=== PATIENT | female | born 1975 | race Caucasian/White ===

== ENCOUNTER 2018-08-21 12:10 | Emergency (ER) | payer MEDICAID ==
[2018-08-21] MEDS ORDERED: Potassium Chloride 20 MEQ Tab.ER PO ONE ×2 (13:20→15:02)
[2018-08-21] MEDS ORDERED: Potassium Chloride 20 MEQ in Premix Bag 1 BAG IV ONE (13:21)
--- NOTE | 2018-08-21 13:27 | EDM.PDOC ---
ED HPI GENERAL MEDICAL PROBLEM - General Chief Complaint: Abdominal Pain Stated Complaint: LOW POTASSIUM Time Seen by Provider: 08/21/18 13:22 Source of Information: Reports: Patient History Limitations: Reports: No Limitations - History of Present Illness INITIAL COMMENTS - FREE TEXT/NARRATIVE: pt has a known diagnosis of cirrhosis of the liver and she quit drinking 1 week ago. She was at the ER in [place] and 2400cc of fluid was taken off of the abdoman. She is more comfortable than when she was seen on Saturday. She has been out of her K since Saturday. She had her K checked at the clinic and she was found to have a 2.8 potassium. Onset: Gradual Duration: Day(s):, Other (pt has been out of k since saturday and she normally takes 40 meq tid. ) Location: Reports: Abdomen, Other ( She had a parencentesis on Saturday and she is very uncomfortable around the site. ) Associated Symptoms: Reports: No Other Symptoms Right Abdominal Pain Score (Numeric/FACES): 7 - Related Data Allergies Allergy/AdvReac Type Severity Reaction Status Date / Time No Known Allergies Allergy Verified 08/21/18 12:58 Home Meds: Home Meds Omeprazole 20 mg PO DAILY 12/18/17 [History] Potassium Chloride 40 meq PO TID 08/21/18 [History] Spironolactone [Aldactone] 12.5 mg PO DAILY 08/21/18 [History] Sulfamethoxazole/Trimethoprim [Sulfamethoxazole-Tmp Ds Tablet] 1 tab PO BID [History] Past Medical History Cardiovascular History: Reports: Hypertension Gastrointestinal History: Reports: Cirrhosis, GERD 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, 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: Musculoskeletal History: Reports: Fracture Psychiatric History: Reports: Bipolar Hematologic History: Reports: Blood Transfusion(s) Other Dermatologic History: tattoos - Infectious Disease History Infectious Disease History: Reports: None - Past Surgical History Female Surgical History: Reports: Tubal Ligation Social & Family History - Family History Cardiac: Reports: Bypass, Hypertension, [place], Pacemaker Psychiatric: Reports: Bipolar, Schizophrenia Endocrine/Metabolic: Reports: Diabetes, type II Oncologic: Reports: Colon - Tobacco Use Smoking Status *Q: Current Every Day Smoker Years of Tobacco use: 30 Packs/Tins Daily: 0.5 - Caffeine Use Caffeine Use: Reports: None - Alcohol Use Date of Last Drink: 08/16/18 - Recreational Drug Use Recreational Drug Use: No ED ROS GENERAL - Review of Systems Review Of Systems: See Below Constitutional: Reports: Weakness, Fatigue, Other ( Pt quit drinking 1 week ago. ) HEENT: Reports: No Symptoms Respiratory: Reports: No Symptoms Cardiovascular: Reports: No Symptoms Endocrine: Reports: No Symptoms GI/Abdominal: Reports: Abdominal Pain, Other ( Pt is having rt sided abdomanal pain. ) : Reports: No Symptoms Musculoskeletal: Reports: No Symptoms Skin: Reports: No Symptoms Neurological: Reports: No Symptoms ED EXAM, GI/ABD - Physical Exam Exam: See Below Text/Narrative:: pt arrived with a history of the k being 2.8. When it was rechecked today it was 2.5. She is also having rt lower abdomanal pain where fluid was drawn off of her abdoman on Saturday in [place]. She statwes she quit drinking a week ago. Exam Limited By: No Limitations General Appearance: Alert, Mild Distress Ears: Normal TMs Nose: Normal Inspection Throat/Mouth: Normal Inspection Head: Atraumatic Neck: Normal Inspection Respiratory/Chest: No Respiratory Distress Cardiovascular: Regular Rate, Rhythm GI/Abdominal Exam: Other (pt is tender over the site where the fluid was draWN OFF ON saturday. ) (Female) Exam: Deferred Rectal (Female) Exam: Deferred Back Exam: Normal Inspection Extremities: Normal Inspection Neurological: Alert, Oriented, Normal Cognition Psychiatric: Normal Affect Course - Vital Signs Last Recorded V/S: Last Vital Signs Temp 36.1 C 08/21/18 13:02 Pulse 91 08/21/18 15:37 Resp 17 08/21/18 15:37 BP 150/99 H 08/21/18 15:37 Pulse Ox 98 08/21/18 14:54 - Orders/Labs/Meds Orders: Active Orders 24 hr Category Date Time Status UA W/MICROSCOPIC [URIN] Urgent Lab 08/21/18 12:54 Ordered Labs: Laboratory Tests 08/21/18 08/21/18 08/21/18 Range/Units 13:03 13:03 15:25 WBC 4.6 (4.5-11.0) K/uL RBC 3.06 L (3.30-5.50) M/uL Hgb 10.7 L (12.0-15.0) g/dL Hct 33.7 L (36.0-48.0) % MCV 110 H (80-98) fL MCH 35 H (27-31) pg MCHC 32 (32-36) % Plt Count 155 (150-400) K/uL Neut % (Auto) 61 (36-66) % Lymph % (Auto) 26 (24-44) % [place] % (Auto) 13 H (2-6) % Eos % (Auto) 1 L (2-4) % Baso % (Auto) 0 (0-1) % Sodium 140 (140-148) mmol/L Potassium 2.5 L* 2.9 L* (3.6-5.2) mmol/L Chloride 102 (100-108) mmol/L Carbon Dioxide 31 (21-32) mmol/L Anion Gap 9.5 (5.0-14.0) mmol/L BUN 8 (7-18) mg/dL Creatinine 0.7 (0.6-1.0) mg/dL Est Cr Clr Drug Dosing 95.17 mL/min Estimated GFR (MDRD) > 60 (>60) Glucose 87 (74-106) mg/dL Calcium 8.0 L (8.5-10.1) mg/dL Total Bilirubin 1.1 H (0.2-1.0) mg/dL AST 132 H (15-37) U/L ALT 61 (12-78) U/L Alkaline Phosphatase 202 H (46-116) U/L Total Protein 6.1 L (6.4-8.2) g/dL Albumin 2.1 L (3.4-5.0) g/dL Globulin 4.0 H (2.3-3.5) g/dL Albumin/Globulin Ratio 0.5 L (1.2-2.2) Meds: Medications Discontinued Medications Generic Name Dose Route Start Last Admin Trade Name Freq PRN Reason Stop Dose Admin Potassium Chloride 20 meq/ 112 mls @ 56 mls/hr 08/21/18 13:45 08/21/18 13:55 Lidocaine HCl 2 ml/ Sodium IV 08/21/18 15:44 56 mls/hr Chloride ONETIME ONE Administration Potassium Chloride 40 meq 08/21/18 13:20 08/21/18 13:33 Klor-Con M20 PO 08/21/18 13:21 40 meq ONETIME ONE Administration Potassium Chloride 20 meq 08/21/18 15:02 08/21/18 15:29 Klor-Con M20 PO 08/21/18 15:03 20 meq ONETIME ONE Administration - Re-Assessments/Exams Free Text/Narrative Re-Assessment/Exam: 08/21/18 17:25 A CAT SCAN OF THE ABDOMAN SHOWED SOME BOWEL THICKENING LIKE SHE COULD HAVE A COLITIS. sHE DOES HAVE CHRONIC DIARRHEA. sHE WAS GIVEN 20 MEQ IV AND A TOTAL OF 60MEQ ORALLY. hER K WAS UP TO 2.9. sHE WILL TAKE ANOTHER 40 MEQ TO NIGHT. sHE IS TO BE SEEN ON TH AND HER K WILL BE RECHECKED. Departure - Departure Time of Disposition: 17:16 Disposition: Home, Self-Care 01 Condition: Fair Clinical Impression: Cirrhosis of liver, Hypokalemia - Discharge Information Referrals: Hipolito Dawkins MD [Primary Care Provider] - Forms: ED Department Discharge Care Plan Goals: resume potassium 40 meq qid, recheck k in the next 3-[address] Dawkins. warm packs to the rt lower abdoman. - My Orders Last 24 Hours: My Active Orders 08/21/18 12:54 UA W/MICROSCOPIC [URIN] Urgent - Assessment/Plan Last 24 Hours: My Active Orders 08/21/18 12:54 UA W/MICROSCOPIC [URIN] Urgent
[2018-08-21] MEDS ORDERED: Potassium Chloride 20 MEQ, Lidocaine 1% 2 ML in Sodium Chloride 0.9% 100 ML IV ONE (13:45)
--- NOTE | 2018-08-21 16:22 | CRLCT ---
INDICATION: Right lower quadrant pain TECHNIQUE: CT abdomen and pelvis without contrast. COMPARISON: 12/20/2017 FINDINGS: Lower chest: Small fluid adjacent to the distal esophagus. Mildly decreased attenuation in the cardiac chambers suggestive of anemia. Liver: Hepatomegaly. Hepatic steatosis. Ill-defined areas of increased attenuation in the left hepatic lobe could be related to areas of sparing. Spleen: Unremarkable. Pancreas: Unremarkable. Gallbladder and bile ducts: Unremarkable. Adrenal glands: The apparent subtle left adrenal nodule seen on the prior study is not well delineated. Kidneys: No hydronephrosis. A miniscule nonobstructive right renal calcification. No discrete ureteral calcifications. GI tract: Apparent prominence of the gastric antral wall which could be related to underdistention. No mechanical bowel obstruction. Apparent wall thickening in several left abdominal small bowel segments, although evaluation is limited without contrast. Thickening of the terminal ileum wall. No evidence of appendicitis. Colonic wall thickening, more pronounced in the right colon and sigmoid colon. Fat attenuation within the majority of the colonic wall and terminal ileum wall which can be seen as sequelae of chronic inflammation. Vascular structures: Mild atherosclerotic changes. Lymph nodes: Unremarkable. Miscellaneous: Moderate abdominal and pelvic ascites. No free air. Mild subcutaneous edema. Pelvic Organs: Unremarkable. Bones: Focal sclerosis in the anterior right 5th rib, nonspecific, possibly related to a chronic fracture. Reactive sclerosis adjacent to the right sacroiliac joint. IMPRESSION: Moderate ascites. Colonic wall thickening compatible with colitis, although somewhat nonspecific in the setting of ascites. Wall thickening of the terminal ileum and apparent areas of wall thickening in left abdominal small bowel segments suggestive of a nonspecific enteritis. Correlate clinically, including for inflammatory bowel disease. Hepatomegaly and hepatic steatosis. No obstructive uropathy. A miniscule nonobstructive right renal calcification. Dictated by Dipak Darby MD @ 08/21/2018 4:19:39 PM Please note that all CT scans at this facility use dose modulation, iterative reconstruction, and/or weight-based dosing when appropriate to reduce radiation dose to as low as reasonably achievable. Dictated by: Dipak Darby MD @ 08/21/2018 16:19:46 (Electronically Signed)
== END 2018-08-21 17:32 | disposition home or self-care (01) ==
LOC: JP.ED 12:10
DX: K74.60 Unspecified cirrhosis of liver (principal); E87.6 Hypokalemia; I10 Essential (primary) hypertension; K21.9 Gastro-esophageal reflux disease without esophagitis; F31.9 Bipolar disorder, unspecified; F17.210 Nicotine dependence, cigarettes, uncomplicated; Z79.899 Other long term (current) drug therapy
CPT/HCPCS: 36415; 74176; 80053; 84132; 85025; 96365; 96366; 99284-25; A9270-GY; J2001; J3480; J7030

== ENCOUNTER 2018-10-28 11:36 | Emergency (ER) | payer MEDICAID ==
[2018-10-28] MEDS ORDERED: Sodium Chloride 0.9% 10 ML Syringe FLUSH PRN (12:20)
[2018-10-28] MEDS ORDERED: Ondansetron 4 MG/2 ML SDV IVPUSH ONE (12:21)
[2018-10-28] MEDS ORDERED: fentaNYL 100 MCG/2 ML SDV IVPUSH ONE ×2 (12:21→16:28)
--- NOTE | 2018-10-28 12:24 | EDM.PDOC ---
ED HPI GENERAL MEDICAL PROBLEM - General Chief Complaint: Abdominal Pain Stated Complaint: LEG CRAMPING, HEART IRREGULAR Time Seen by Provider: 10/28/18 12:16 Source of Information: Reports: Patient, Family, Old Records, RN Notes Reviewed History Limitations: Reports: No Limitations - History of Present Illness INITIAL COMMENTS - FREE TEXT/NARRATIVE: 43-year-old female presents emergency department today with complaint of abdominal pain. She has had nausea vomiting also blood in her urine and dysuria she's been sick for the last couple days. Does have a history of alcoholic cirrhosis but has been off alcohol for 1 month unfortunately she drank 3 days ago Lower Abdomen Pain Score (Numeric/FACES): 4 - Related Data Allergies Allergy/AdvReac Type Severity Reaction Status Date / Time No Known Allergies Allergy Verified 10/28/18 11:55 Home Meds: Home Meds Omeprazole 20 mg PO DAILY 12/18/17 [History] Potassium Chloride 40 meq PO TID 08/21/18 [History] Spironolactone [Aldactone] 12.5 mg PO DAILY 08/21/18 [History] Folic Acid 1 tab PO DAILY 10/28/18 [History] Past Medical History HEENT History: Reports: Impaired Vision Cardiovascular History: Reports: Hypertension Gastrointestinal History: Reports: Cirrhosis, GERD 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, Recurrent 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: Musculoskeletal History: Reports: Fracture Psychiatric History: Reports: Bipolar Hematologic History: Reports: Blood Transfusion(s) Other Dermatologic History: tattoos - Infectious Disease History Infectious Disease History: Reports: None - Past Surgical History Female Surgical History: Reports: Tubal Ligation Social & Family History - Family History Cardiac: Reports: Bypass, Hypertension, [place], Pacemaker Psychiatric: Reports: Bipolar, Schizophrenia Endocrine/Metabolic: Reports: Diabetes, type II Oncologic: Reports: Colon - Tobacco Use Smoking Status *Q: Current Every Day Smoker Years of Tobacco use: 30 Packs/Tins Daily: 0.5 Used Tobacco, but Quit: No Second Hand Smoke Exposure: Yes - Caffeine Use Caffeine Use: Reports: None - Alcohol Use Days Per Week of Alcohol Use: 0 - Recreational Drug Use Recreational Drug Use: No ED ROS GENERAL - Review of Systems Review Of Systems: See Below Constitutional: Reports: Fever, Chills HEENT: Reports: No Symptoms Respiratory: Reports: No Symptoms Cardiovascular: Reports: No Symptoms GI/Abdominal: Reports: Abdominal Pain, Nausea, Vomiting : Reports: Hematuria Musculoskeletal: Reports: No Symptoms Skin: Reports: No Symptoms ED EXAM, GI/ABD - Physical Exam Exam: See Below Exam Limited By: No Limitations General Appearance: Alert, WD/WN, No Apparent Distress Respiratory/Chest: No Respiratory Distress, Lungs Clear, Normal Breath Sounds, No Accessory Muscle Use, Chest Non-Tender Cardiovascular: Regular Rate, Rhythm, No Murmur GI/Abdominal Exam: Normal Bowel Sounds, Soft, No Distention, Tender (Suprapubic tenderness). No: Guarding, Rigid, Rebound Course - Vital Signs Last Recorded V/S: Last Vital Signs Temp 97.6 F 10/28/18 12:06 Pulse 74 10/28/18 13:21 Resp 16 10/28/18 13:21 BP 149/95 H 10/28/18 13:21 Pulse Ox 93 L 10/28/18 13:21 - Orders/Labs/Meds Orders: Active Orders 24 hr Category Date Time Status Peripheral IV Care [RC] . DIRECTED Care 10/28/18 12:20 Active CULTURE URINE [RM] Urgent Lab 10/28/18 15:47 Ordered Iopamidol [Isovue-300 (61%)] Med 10/28/18 13:45 Active 88 ml IV . DIRECTED Lactated Ringers [Ringers, Lactated] 1,000 ml Med 10/28/18 12:30 Active IV ASDIRECTED Potassium Chloride 20 meq Med 10/28/18 15:30 Active Lidocaine 1% [Xylocaine 1%] 2 ml Sodium Chloride 0.9% [Normal Saline] 100 ml IV ONETIME Sodium Chloride 0.9% [Normal Saline] 1,000 ml Med 10/28/18 15:15 Active IV ASDIRECTED Sodium Chloride 0.9% [Normal Saline] 70 ml Med 10/28/18 13:45 Active IV ASDIRECTED Sodium Chloride 0.9% [Saline Flush] Med 10/28/18 12:20 Active 10 ml FLUSH ASDIRECTED PRN Peripheral IV Insertion Adult [OM.PC] Urgent Oth 10/28/18 12:20 Ordered Medication Orders Lactated Ringer's (Ringers, Lactated) 1,000 mls @ 999 mls/hr IV ASDIRECTED KAREN Last Admin: 10/28/18 12:46 Dose: 999 mls/hr Sodium Chloride (Normal Saline) 70 mls @ 0 mls/hr IV ASDIRECTED KAREN Stop: 10/28/18 23:00 Last Admin: 10/28/18 14:00 Dose: 3.5 mls/hr Sodium Chloride (Normal Saline) 1,000 mls @ 500 mls/hr IV ASDIRECTED KAREN Last Admin: 10/28/18 15:12 Dose: 500 mls/hr Potassium Chloride 20 meq/Lidocaine HCl 2 ml/ Sodium Chloride 112 mls @ 56 mls/ hr IV ONETIME ONE Stop: 10/28/18 17:29 Iopamidol (Isovue-300 (61%)) 88 ml IV . DIRECTED KAREN Stop: 10/28/18 23:00 Last Admin: 10/28/18 13:53 Dose: 88 ml Sodium Chloride (Saline Flush) 10 ml FLUSH ASDIRECTED PRN PRN Reason: Keep Vein Open Labs: Laboratory Tests 10/28/18 10/28/18 10/28/18 Range/Units 12:35 12:35 12:37 WBC 6.4 (4.5-11.0) K/uL RBC 4.19 (3.30-5.50) M/uL Hgb 14.1 D (12.0-15.0) g/dL Hct 42.5 (36.0-48.0) % MCV 101 H (80-98) fL MCH 34 H (27-31) pg MCHC 33 (32-36) % Plt Count 186 (150-400) K/uL Neut % (Auto) 71 H (36-66) % Lymph % (Auto) 14 L (24-44) % [place] % (Auto) 15 H (2-6) % Eos % (Auto) 0 L (2-4) % Baso % (Auto) 0 (0-1) % Sodium (140-148) mmol/L Potassium (3.6-5.2) mmol/L Chloride (100-108) mmol/L Carbon Dioxide (21-32) mmol/L Anion Gap (5.0-14.0) mmol/L BUN (7-18) mg/dL Creatinine (0.6-1.0) mg/dL Est Cr Clr Drug Dosing mL/min Estimated GFR (MDRD) (>60) Glucose (74-106) mg/dL Lactic Acid (0.4-2.0) mmol/L Calcium (8.5-10.1) mg/dL Total Bilirubin (0.2-1.0) mg/dL AST (15-37) U/L ALT (12-78) U/L Alkaline Phosphatase (46-116) U/L Total Protein (6.4-8.2) g/dL Albumin (3.4-5.0) g/dL Globulin (2.3-3.5) g/dL Albumin/Globulin Ratio (1.2-2.2) Lipase (73-393) U/L Urine Color [place] Urine Appearance Slightly cloudy Urine pH 5.0 (4.5-8.0) Ur Specific [place] 1.020 (1.008-1.030) Urine Protein 30 H (NEGATIVE) mg/dL Urine Glucose (UA) Normal (NEGATIVE) mg/dL Urine Ketones Negative (NEGATIVE) mg/dL Urine Occult Blood Large (NEGATIVE) Urine Nitrite Negative (NEGATIVE) Urine Bilirubin Large (NEGATIVE) Urine Urobilinogen >=12 H (NORMAL) mg/dL Ur Leukocyte Esterase Large (NEGATIVE) Urine RBC 5-10 H (0-5) Urine WBC 5-10 H (0-5) Ur Epithelial Cells Many Amorphous Sediment Not seen Urine Bacteria Rare Urine Mucus Many Urine Other Urine HCG, Qual Negative Ethyl Alcohol mg/dL 10/28/18 10/28/18 10/28/18 Range/Units 12:37 12:37 12:37 WBC (4.5-11.0) K/uL RBC (3.30-5.50) M/uL Hgb (12.0-15.0) g/dL Hct (36.0-48.0) % MCV (80-98) fL MCH (27-31) pg MCHC (32-36) % Plt Count (150-400) K/uL Neut % (Auto) (36-66) % Lymph % (Auto) (24-44) % [place] % (Auto) (2-6) % Eos % (Auto) (2-4) % Baso % (Auto) (0-1) % Sodium 138 L (140-148) mmol/L Potassium 2.8 L* (3.6-5.2) mmol/L Chloride 92 L (100-108) mmol/L Carbon Dioxide 33 H (21-32) mmol/L Anion Gap 15.8 H (5.0-14.0) mmol/L BUN 24 H D (7-18) mg/dL Creatinine 1.2 H D (0.6-1.0) mg/dL Est Cr Clr Drug Dosing 55.52 mL/min Estimated GFR (MDRD) 50 L (>60) Glucose 140 H (74-106) mg/dL Lactic Acid 5.2 H (0.4-2.0) mmol/L Calcium 9.6 D (8.5-10.1) mg/dL Total Bilirubin 3.6 H D (0.2-1.0) mg/dL AST 194 H (15-37) U/L ALT 87 H (12-78) U/L Alkaline Phosphatase 256 H (46-116) U/L Total Protein 7.6 (6.4-8.2) g/dL Albumin 3.2 L (3.4-5.0) g/dL Globulin 4.4 H (2.3-3.5) g/dL Albumin/Globulin Ratio 0.7 L (1.2-2.2) Lipase 57 L (73-393) U/L Urine Color Urine Appearance Urine pH (4.5-8.0) Ur Specific [place] (1.008-1.030) Urine Protein (NEGATIVE) mg/dL Urine Glucose (UA) (NEGATIVE) mg/dL Urine Ketones (NEGATIVE) mg/dL Urine Occult Blood (NEGATIVE) Urine Nitrite (NEGATIVE) Urine Bilirubin (NEGATIVE) Urine Urobilinogen (NORMAL) mg/dL Ur Leukocyte Esterase (NEGATIVE) Urine RBC (0-5) Urine WBC (0-5) Ur Epithelial Cells Amorphous Sediment Urine Bacteria Urine Mucus Urine Other Urine HCG, Qual Ethyl Alcohol < 3 mg/dL Meds: Medications Generic Name Dose Route Start Last Admin Trade Name Freq PRN Reason Stop Dose Admin Lactated Ringer's 1,000 mls @ 999 mls/hr 10/28/18 12:30 10/28/18 12:46 Ringers, Lactated IV 999 mls/hr ASDIRECTED KAREN Administration Sodium Chloride 70 mls @ 0 mls/hr 10/28/18 13:45 10/28/18 14:00 Normal Saline IV 10/28/18 23:00 3.5 mls/hr ASDIRECTED KAREN Administration KVO Sodium Chloride 1,000 mls @ 500 mls/hr 10/28/18 15:15 10/28/18 15:12 Normal Saline IV 500 mls/hr ASDIRECTED KAREN Administration Potassium Chloride 20 meq/ 112 mls @ 56 mls/hr 10/28/18 15:30 Lidocaine HCl 2 ml/ Sodium IV 10/28/18 17:29 Chloride ONETIME ONE Iopamidol 88 ml 10/28/18 13:45 10/28/18 13:53 Isovue-300 (61%) IV 10/28/18 23:00 88 ml . DIRECTED KAREN Administration Sodium Chloride 10 ml 10/28/18 12:20 Saline Flush FLUSH ASDIRECTED PRN Keep Vein Open Discontinued Medications Generic Name Dose Route Start Last Admin Trade Name Freq PRN Reason Stop Dose Admin Fentanyl 50 mcg 10/28/18 12:21 10/28/18 12:48 Sublimaze IVPUSH 10/28/18 12:22 50 mcg ONETIME ONE Administration Ceftriaxone Sodium 1 gm/ 50 mls @ 100 mls/hr 10/28/18 15:01 10/28/18 15:17 Sodium Chloride IV 10/28/18 15:30 100 mls/hr ONETIME ONE Administration Ondansetron HCl 4 mg 10/28/18 12:21 10/28/18 12:48 Zofran IVPUSH 10/28/18 12:22 4 mg ONETIME ONE Administration Potassium Chloride 40 meq 10/28/18 13:22 10/28/18 13:36 Klor-Con M20 PO 10/28/18 13:23 40 meq ONETIME ONE Administration Sodium Chloride 10 ml 10/28/18 13:37 10/28/18 14:00 Saline Flush FLUSH 10/28/18 13:38 10 ml ONETIME ONE Administration Departure - Departure Time of Disposition: 15:51 Disposition: Home, Self-Care 01 Condition: Fair Clinical Impression: Hypokalemia Urinary tract infection Qualifiers: Urinary tract infection type: acute cystitis Hematuria presence: with hematuria Qualified Code(s): N30.01 - Acute cystitis with hematuria - Discharge Information Instructions: Urine Culture and Sensitivity Testing, Urinary Tract Infection, Adult Referrals: Georgina Mancilla PA [Primary Care Provider] - Forms: ED Department Discharge Additional Instructions: Take full course of antibiotics, please follow-up with your primary care in the next 3-5 days for reevaluation recommend rechecking her potassium at that time - My Orders Last 24 Hours: My Active Orders 10/28/18 12:20 Peripheral IV Care [RC] . DIRECTED Sodium Chloride 0.9% [Saline Flush] 10 ml FLUSH ASDIRECTED PRN Peripheral IV Insertion Adult [OM.PC] Urgent 10/28/18 12:30 Lactated Ringers [Ringers, Lactated] 1,000 ml IV ASDIRECTED 10/28/18 13:45 Iopamidol [Isovue-300 (61%)] 88 ml IV . DIRECTED Sodium Chloride 0.9% [Normal Saline] 70 ml IV ASDIRECTED 10/28/18 15:15 Sodium Chloride 0.9% [Normal Saline] 1,000 ml IV ASDIRECTED 10/28/18 15:30 Potassium Chloride 20 meq Lidocaine 1% [Xylocaine 1%] 2 ml Sodium Chloride 0.9 % [Normal Saline] 100 ml IV ONETIME 10/28/18 15:47 CULTURE URINE [RM] Urgent - Assessment/Plan Last 24 Hours: My Active Orders 10/28/18 12:20 Peripheral IV Care [RC] . DIRECTED Sodium Chloride 0.9% [Saline Flush] 10 ml FLUSH ASDIRECTED PRN Peripheral IV Insertion Adult [OM.PC] Urgent 10/28/18 12:30 Lactated Ringers [Ringers, Lactated] 1,000 ml IV ASDIRECTED 10/28/18 13:45 Iopamidol [Isovue-300 (61%)] 88 ml IV . DIRECTED Sodium Chloride 0.9% [Normal Saline] 70 ml IV ASDIRECTED 10/28/18 15:15 Sodium Chloride 0.9% [Normal Saline] 1,000 ml IV ASDIRECTED 10/28/18 15:30 Potassium Chloride 20 meq Lidocaine 1% [Xylocaine 1%] 2 ml Sodium Chloride 0.9 % [Normal Saline] 100 ml IV ONETIME 10/28/18 15:47 CULTURE URINE [RM] Urgent Plan: Assessment Acuity = acute Site and laterality = urinary tract infection complicated patient known history of liver cirrhosis Etiology = probable bacterial cause Manifestations = dysuria Location of injury = Home Lab values = potassium low at 2.8 consistent hypokalemia creatinine elevated 1.2 consistent acute renal failure stage GIV lactic acid elevated at 5.2 consistent lactic acidosis probably related to recent alcohol use AST elevated 194 AlT elevated 87 consistent elevated liver enzymes and lipase normal 57 urinalysis reveals 5-10 RBCs consistent hematuria [address] scan shows no acute process Plan She did receive replacement of potassium 40 mEq orally and 20 mEq through the IV , was given 1 g Rocephin IV discharge home with Macrobid 100 mg by mouth twice a day 7 days she is to follow-up primary care 3-5 days for reevaluation and recheck potassium This note was dictated using [employer] voice recognition software please call with any questions on syntax or grammar.
[2018-10-28] MEDS ORDERED: Lactated Ringers 1,000 ML IV SCH (12:30)
[2018-10-28] MEDS ORDERED: Potassium Chloride 20 MEQ Tab.ER PO ONE (13:22)
[2018-10-28] MEDS ORDERED: Sodium Chloride 0.9% 10 ML Syringe FLUSH ONE (13:37)
[2018-10-28] MEDS ORDERED: Iopamidol 612 MG/ML 100 ML Bottle IV SCH (13:45)
[2018-10-28] MEDS ORDERED: Potassium Chloride 20 MEQ in Premix Bag 1 BAG IV ONE (15:00)
[2018-10-28] MEDS ORDERED: cefTRIAXone 1 GM in Sodium Chloride 0.9% 50 ML IV ONE (15:01)
[2018-10-28] MEDS ORDERED: Sodium Chloride 0.9% 1,000 ML IV SCH (15:15)
--- NOTE | 2018-10-28 15:17 | CRLCT ---
INDICATION: Pelvic pain TECHNIQUE: CT abdomen and pelvis acquired with IV contrast. 80 cc Isovue 300 COMPARISON: 08/21/2018 FINDINGS: Lower chest: Unremarkable. Liver: Hepatic steatosis. Spleen: Unremarkable. Pancreas: Unremarkable. Gallbladder and bile ducts: Unremarkable. Kidneys: Punctate nonobstructing calculi inferior pole right kidney. Adrenal glands: Unremarkable. GI tract: Mild wall thickening of the sigmoid colon. Subcutaneous fat deposits in the remainder of the colon most likely related to chronic disease. Mild small bowel thickening. Appendix is normal. Vascular structures: Unremarkable. Lymph nodes: Unremarkable. Miscellaneous: Unremarkable. No free air or significant free fluid. Pelvic Organs: Unremarkable. Bones: Unremarkable for age. IMPRESSION: Mild colonic wall thickening involving the sigmoid colon. Findings are nonspecific.Correlate with colitis clinically. Diffuse submucosal colonic fat deposits maybe related to chronic bowel disease. Findings were present on 08/21/2018 and basically unchanged. Mild diffuse areas of small bowel thickening. Findings are nonspecific. Headache steatosis. Punctate nonobstructing calculi inferior pole right kidney. Dictated by Eyad Saldivar MD @ 10/28/2018 3:15:19 PM Please note that all CT scans at this facility use dose modulation, iterative reconstruction, and/or weight-based dosing when appropriate to reduce radiation dose to as low as reasonably achievable. Dictated by: Eyad Saldivar MD @ 10/28/2018 15:15:45 (Electronically Signed)
[2018-10-28] MEDS ORDERED: Potassium Chloride 20 MEQ, Lidocaine 1% 2 ML in Sodium Chloride 0.9% 100 ML IV ONE (15:30)
== END 2018-10-28 17:44 | disposition home or self-care (01) ==
LOC: JP.ED 11:36
DX: N30.01 Acute cystitis with hematuria (principal); E87.6 Hypokalemia; I10 Essential (primary) hypertension; F17.210 Nicotine dependence, cigarettes, uncomplicated; K21.9 Gastro-esophageal reflux disease without esophagitis; Z79.899 Other long term (current) drug therapy
CPT/HCPCS: 36415; 74177; 80053; 81001; 81025; 83605; 83690; 85025; 87086; 96361; 96365; 96366; 96367; 96375; 96376; 99284; A9270; G0480; J0696; J2001; J2405; J3010; J3480; J7030; J7050; J7120; Q9967

== ENCOUNTER 2019-01-01 17:39 | Emergency (ER) | payer MEDICAID ==
[2019-01-01] MEDS ORDERED: methylPREDNISolone Sodium Succinate 125 MG/2 ML SDV IM ONE (17:59)
[2019-01-01] MEDS ORDERED: diphenhydrAMINE 50 MG/ML SDV IM ONE (17:59)
--- NOTE | 2019-01-01 18:05 | EDM.PDOC ---
ED HPI GENERAL MEDICAL PROBLEM - General Chief Complaint: Allergic Reaction Stated Complaint: ALLERGIC REACTION TO MEDS Time Seen by Provider: 01/01/19 17:45 Source of Information: Reports: Patient, Family (Mom at bedside) History Limitations: Reports: No Limitations - History of Present Illness INITIAL COMMENTS - FREE TEXT/NARRATIVE: chief complaint: itchy rash, allergic reaction to medication This is a 43 year old female presents to the ER with her Mom, reports she was prescribed Sulfa for a bladder infection, She took one pill and developed a itchy feeling and rash. denies any shortness of breath or chest pain. no impaired swallowing. 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 Medication(s) Abdomen Pain Score (Numeric/FACES): 9 - Related Data Allergies Allergy/AdvReac Type Severity Reaction Status Date / Time sulfamethoxazole Allergy Itching Verified 01/01/19 17:57 [From Bactrim] trimethoprim [From Bactrim] Allergy Itching Verified 01/01/19 17:57 Home Meds: Home Meds Omeprazole 20 mg PO DAILY 12/18/17 [History] Potassium Chloride 20 meq PO TID 08/21/18 [History] Spironolactone [Aldactone] 12.5 mg PO DAILY 08/21/18 [History] Folic Acid 1 tab PO DAILY 10/28/18 [History] Bisacodyl [Dulcolax] 5 mg PO BEDTIME PRN 01/01/19 [History] Calcium Carb & Citrate/Vit D3 [Calcium + D3 ER Tablet] 1 each PO DAILY 01/01/19 [History] Hydrocortisone [Hydrocortisone 2.5% Crm] 1 applic TOP TID 01/01/19 [History] Lisinopril 40 mg PO DAILY 01/01/19 [History] Loperamide [Imodium] 2 mg PO Q6H 01/01/19 [History] Magnesium Oxide [Magnesium] 400 mg PO DAILY 01/01/19 [History] Multivitamin [Multi-Vitamin Daily] 1 each PO DAILY 01/01/19 [History] Polyethylene Glycol 3350 [MiraLAX] 17 gm PO DAILY PRN 01/01/19 [History] Past Medical History HEENT History: Reports: Impaired Vision Cardiovascular History: Reports: Hypertension Gastrointestinal History: Reports: Cirrhosis, GERD 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, 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: Musculoskeletal History: Reports: Fracture Psychiatric History: Reports: Bipolar Hematologic History: Reports: Blood Transfusion(s) Other Dermatologic History: tattoos - Infectious Disease History Infectious Disease History: Reports: None - Past Surgical History Female Surgical History: Reports: Tubal Ligation Social & Family History - Family History Cardiac: Reports: Bypass, Hypertension, [place], Pacemaker Psychiatric: Reports: Bipolar, Schizophrenia Endocrine/Metabolic: Reports: Diabetes, type II Oncologic: Reports: Colon - Tobacco Use Smoking Status *Q: Current Every Day Smoker Years of Tobacco use: 25 Packs/Tins Daily: 1 - Caffeine Use Caffeine Use: Reports: None - Recreational Drug Use Recreational Drug Use: No ED ROS ALLERGIC REACTION - Review of Systems Review Of Systems: See Below Constitutional: Reports: Other (pruritic rash) HEENT: Reports: No Symptoms Respiratory: Reports: No Symptoms Cardiovascular: Reports: No Symptoms Endocrine: Reports: No Symptoms GI/Abdominal: Reports: Other (chronic right upper quadrant pain from cirrhosis.) : Reports: No Symptoms Musculoskeletal: Reports: No Symptoms Skin: Reports: Change in Color (rednss to face, arms, abdomen and legs) Neurological: Reports: No Symptoms Psychiatric: Reports: No Symptoms Hematologic/Lymphatic: Reports: No Symptoms Immunologic: Reports: No Symptoms ED EXAM GENERAL NO PERIP PULSE - Physical Exam Exam: See Below Exam Limited By: No Limitations General Appearance: Alert, Anxious Eye Exam: Bilateral Eye: Conjunctival Injection Ears: Normal External Exam Nose: Normal Inspection Throat/Mouth: Normal Inspection, Normal Voice, No Airway Compromise, Perioral Cyanosis Head: Atraumatic Neck: Normal Inspection, Supple, Non-Tender, Full Range of Motion Respiratory/Chest: No Respiratory Distress, Lungs Clear, Normal Breath Sounds, No Accessory Muscle Use, Chest Non-Tender Cardiovascular: Regular Rate, Rhythm, No Murmur, No Rub GI/Abdominal: Normal Bowel Sounds, Distended (tenderness noted to right upper quadrant from chronic cirrhosis.) Back Exam: Normal Inspection, Full Range of Motion Extremities: Non-Tender, No Pedal Edema, Normal Capillary Refill, Other ( redness and warmth noted to arms and legs) Neurological: Alert, Oriented, No Motor/Sensory Deficits Lymphatic: No Adenopathy Course - Vital Signs Last Recorded V/S: Last Vital Signs Temp 35.7 C 01/01/19 17:55 Pulse 111 H 01/01/19 17:55 Resp 18 01/01/19 17:55 BP 173/111 H 01/01/19 17:55 Pulse Ox 99 01/01/19 17:55 - Orders/Labs/Meds Meds: Medications Discontinued Medications Generic Name Dose Route Start Last Admin Trade Name Kael PRN Reason Stop Dose Admin Diphenhydramine HCl 50 mg 01/01/19 17:59 01/01/19 18:06 Benadryl IM 01/01/19 18:00 50 mg ONETIME ONE Administration Methylprednisolone Sodium Succinate 125 mg 01/01/19 17:59 01/01/19 18:04 Solu-Medrol IM 01/01/19 18:00 125 mg ONETIME ONE Administration - Re-Assessments/Exams Free Text/Narrative Re-Assessment/Exam: 01/01/19 medications: Benedryl 50 mg IM Solumedrol 125mg IM home medications: Medrol dose pack, Keflex 500mg po bid x 10 days. discussed stop Septra, start medication in am follow up in Primary Care for recheck, return to ER for any worsen symptoms or not improved Departure - Departure Time of Disposition: 18:00 Disposition: Home, Self-Care 01 Condition: Good Clinical Impression: Urinary tract infection Qualifiers: Urinary tract infection type: site unspecified Medication reaction Qualifiers: Encounter type: initial encounter Qualified Code(s): T50.905A - Adverse effect of unspecified drugs, medicaments and biological substances, initial encounter - Discharge Information *PRESCRIPTION DRUG MONITORING PROGRAM REVIEWED*: Not Applicable *COPY OF PRESCRIPTION DRUG MONITORING REPORT IN PATIENT EVONNE: Not Applicable Instructions: Drug Allergy, [id number], Urinary Tract Infection, Adult, Easy- to-Read Referrals: Georgina Mancilla PA [Primary Care Provider] - Forms: ED Department Discharge Care Plan Goals: Medication reaction to Sulfa - pruritic rash -stop Septra -start tomorrow morning Medrol dose pack as directed -start in morning Benedryl 25mg one every 6 hours as needed for itchy rash Bladder Infection - UTI -start Keflex 500mg one in morning and evening for 10 days -push fluids rest, push fluids, take medication as directed return to ER for any increase rash, itching, fever, chills, nausea, vomiting or any concerns. - Problem List & Annotations (1) Medication reaction SNOMED Code(s): 65128154 Code(s): T50.905A - ADVERSE EFFECT OF UNSP DRUG/MEDS/BIOL SUBST, INIT Status: Acute Priority: High Current Visit: Yes Qualifiers: Encounter type: initial encounter Qualified Code(s): T50.905A - Adverse effect of unspecified drugs, medicaments and biological substances, initial encounter (2) Urinary tract infection SNOMED Code(s): 82413906 Code(s): N39.0 - URINARY TRACT INFECTION, SITE NOT SPECIFIED Status: Acute Priority: Medium Current Visit: Yes Qualifiers: Urinary tract infection type: site unspecified - Problem List Review Problem List Initiated/Reviewed/Updated: Yes - Assessment/Plan Plan: Medication reaction to Sulfa - pruritic rash -stop Septra -start tomorrow morning Medrol dose pack as directed -start in morning Benedryl 25mg one every 6 hours as needed for itchy rash Bladder Infection - UTI -start Keflex 500mg one in morning and evening for 10 days -push fluids rest, push fluids, take medication as directed return to ER for any increase rash, itching, fever, chills, nausea, vomiting or any concerns.
== END 2019-01-01 18:15 | disposition home or self-care (01) ==
LOC: JP.ED 17:39
DX: L27.1 Localized skin eruption due to drugs and medicaments taken internally (principal); T37.0X5A Adverse effect of sulfonamides, initial encounter; N39.0 Urinary tract infection, site not specified; K21.9 Gastro-esophageal reflux disease without esophagitis; I10 Essential (primary) hypertension; F17.210 Nicotine dependence, cigarettes, uncomplicated; Z88.1 Allergy status to other antibiotic agents; Z79.899 Other long term (current) drug therapy; Z98.51 Tubal ligation status
CPT/HCPCS: 96372; 99284; J1200; J2930; 99283

== ENCOUNTER 2019-03-09 09:43 | Inpatient (IN) | payer MEDICAID ==
[2019-03-09] MEDS ORDERED: Ondansetron 4 MG/2 ML SDV IVPUSH ONE (10:28)
[2019-03-09] MEDS ORDERED: Sodium Chloride 0.9% 1,000 ML IV SCH ×3 (10:30→13:30)
--- NOTE | 2019-03-09 10:35 | EDM.PDOC ---
ED HPI GENERAL MEDICAL PROBLEM - General Chief Complaint: Gastrointestinal Problem Stated Complaint: VOMITING,DIARRHEA Time Seen by Provider: 03/09/19 10:34 Source of Information: Reports: Patient History Limitations: Reports: No Limitations - History of Present Illness INITIAL COMMENTS - FREE TEXT/NARRATIVE: pt has a history of having a drinking problem. She drinks about 1/3 to 1/2 liter of hard liquor daily. She has recentlt cut back. She has a long history of drinking alot. She started to vomit blood this am. She has never had any GI bleeding. She has had black tarry stools for the past 2 days. She has had 4 emesis of bloody looking material. Onset: Today, Sudden, Other ( started about 7 am. ) Duration: Hour(s): Location: Reports: Abdomen, Other (pt is not having severe abdomanal pain) Associated Symptoms: Reports: Nausea/Vomiting, Weakness, Other (pt is vomiting blood. ) abd Pain Score (Numeric/FACES): 6 - Related Data Allergies Allergy/AdvReac Type Severity Reaction Status Date / Time sulfamethoxazole Allergy Itching Verified 03/09/19 10:20 [From Bactrim] trimethoprim [From Bactrim] Allergy Itching Verified 03/09/19 10:20 Home Meds: Home Meds Omeprazole 20 mg PO DAILY 12/18/17 [History] Potassium Chloride 20 meq PO TID 08/21/18 [History] Spironolactone [Aldactone] 12.5 mg PO DAILY 08/21/18 [History] Loperamide [Imodium] 2 mg PO Q6H 01/01/19 [History] Magnesium Oxide [Magnesium] 400 mg PO DAILY 01/01/19 [History] Multivitamin [Multi-Vitamin Daily] 1 each PO DAILY 01/01/19 [History] Past Medical History HEENT History: Reports: Impaired Vision Cardiovascular History: Reports: Hypertension Gastrointestinal History: Reports: Cirrhosis, GERD 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, 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: Musculoskeletal History: Reports: Fracture Psychiatric History: Reports: Bipolar Hematologic History: Reports: Blood Transfusion(s) Other Dermatologic History: tattoos - Infectious Disease History Infectious Disease History: Reports: None - Past Surgical History Female Surgical History: Reports: Tubal Ligation Social & Family History - Family History Cardiac: Reports: Bypass, Hypertension, [place], Pacemaker Psychiatric: Reports: Bipolar, Schizophrenia Endocrine/Metabolic: Reports: Diabetes, type II Oncologic: Reports: Colon - Tobacco Use Smoking Status *Q: Current Every Day Smoker Years of Tobacco use: 20 Packs/Tins Daily: 0.5 - Caffeine Use Caffeine Use: Reports: None - Alcohol Use Days Per Week of Alcohol Use: 7 Number of Drinks Per Day: 2 Total Drinks Per Week: 14 - Recreational Drug Use Recreational Drug Use: No ED ROS GENERAL - Review of Systems Review Of Systems: See Below Constitutional: Reports: No Symptoms HEENT: Reports: No Symptoms Respiratory: Reports: No Symptoms Cardiovascular: Reports: No Symptoms Endocrine: Reports: No Symptoms GI/Abdominal: Reports: Abdominal Pain, Black Stool, Hematemesis, Nausea, Vomiting : Reports: No Symptoms Musculoskeletal: Reports: No Symptoms Skin: Reports: No Symptoms Neurological: Reports: No Symptoms, Other (pt is quite shakey. ) Psychiatric: Reports: Anxiety ED EXAM, GI/ABD - Physical Exam Exam: See Below Text/Narrative:: pt arrived looking quite shakey. She has been vomiting quite bright red blood. She is a known regular drinker. She has not had GI bleeding in the past. a Exam Limited By: No Limitations General Appearance: Alert, Anxious, Moderate Distress, Other (pupils are equal and reactive. ) Ears: Normal TMs Nose: Normal Inspection Throat/Mouth: Normal Inspection Head: Atraumatic Neck: Normal Inspection Respiratory/Chest: No Respiratory Distress Cardiovascular: Regular Rate, Rhythm GI/Abdominal Exam: Other (mild epigastric tenderness. ) (Female) Exam: Deferred Rectal (Female) Exam: Deferred Back Exam: Normal Inspection Extremities: Normal Inspection Neurological: Alert, Oriented, Normal Cognition Psychiatric: Anxious Course - Vital Signs Last Recorded V/S: Last Vital Signs Temp 36.2 C 03/09/19 10:13 Pulse 134 H 03/09/19 10:37 Resp 19 03/09/19 10:37 BP 155/99 H 03/09/19 10:37 Pulse Ox 94 L 03/09/19 10:37 - Orders/Labs/Meds Orders: Active Orders 24 hr Category Date Time Status CULTURE URINE [RM] Stat Lab 03/09/19 11:16 Ordered MAGNESIUM [CHEM] Stat Lab 03/09/19 11:20 Ordered Sodium Chloride 0.9% [Normal Saline] 1,000 ml Med 03/09/19 10:30 Active IV ASDIRECTED Sodium Chloride 0.9% [Normal Saline] 1,000 ml Med 03/09/19 11:30 Ordered IV ASDIRECTED Medication Orders Sodium Chloride (Normal Saline) 1,000 mls @ 999 mls/hr IV ASDIRECTED KAREN Last Admin: 03/09/19 10:35 Dose: 999 mls/hr Labs: Laboratory Tests 03/09/19 03/09/19 03/09/19 Range/Units 10:32 10:32 10:35 WBC 11.4 H (4.5-11.0) K/uL RBC 3.50 (3.30-5.50) M/uL Hgb 12.5 (12.0-15.0) g/dL Hct 37.2 (36.0-48.0) % MCV 106 H (80-98) fL MCH 36 H (27-31) pg MCHC 34 (32-36) % Plt Count 215 (150-400) K/uL Neut % (Auto) 80 H (36-66) % Lymph % (Auto) 10 L (24-44) % [place] % (Auto) 9 H (2-6) % Eos % (Auto) 1 L (2-4) % Baso % (Auto) 0 (0-1) % PT 12.4 H (9.5-12.0) sec INR 1.16 (0.80-1.20) APTT 25.2 L (27.0-36.0) sec Sodium (140-148) mmol/L Potassium (3.6-5.2) mmol/L Chloride (100-108) mmol/L Carbon Dioxide (21-32) mmol/L Anion Gap (5.0-14.0) mmol/L BUN (7-18) mg/dL Creatinine (0.6-1.0) mg/dL Est Cr Clr Drug Dosing mL/min Estimated GFR (MDRD) (>60) Glucose (74-106) mg/dL Calcium (8.5-10.1) mg/dL Total Bilirubin (0.2-1.0) mg/dL AST (15-37) U/L ALT (12-78) U/L Alkaline Phosphatase (46-116) U/L Total Protein (6.4-8.2) g/dL Albumin (3.4-5.0) g/dL Globulin (2.3-3.5) g/dL Albumin/Globulin Ratio (1.2-2.2) Lipase (73-393) U/L Urine Color (YELLOW) Urine Appearance (CLEAR) Urine pH (5.0-8.0) Ur Specific [place] (1.008-1.030) Urine Protein (NEGATIVE) mg/dL Urine Glucose (UA) (NEGATIVE) mg/dL Urine Ketones (NEGATIVE) mg/dL Urine Occult Blood (NEGATIVE) Urine Nitrite (NEGATIVE) Urine Bilirubin (NEGATIVE) Urine Urobilinogen (0.2-1.0) EU/dL Ur Leukocyte Esterase (NEGATIVE) Urine RBC (0-5) Urine WBC (0-5) Ur Epithelial Cells Amorphous Sediment Urine Bacteria Urine Mucus Urinalysis Comment Ethyl Alcohol 66 mg/dL 03/09/19 03/09/19 03/09/19 Range/Units 10:35 10:35 10:38 WBC (4.5-11.0) K/uL RBC (3.30-5.50) M/uL Hgb (12.0-15.0) g/dL Hct (36.0-48.0) % MCV (80-98) fL MCH (27-31) pg MCHC (32-36) % Plt Count (150-400) K/uL Neut % (Auto) (36-66) % Lymph % (Auto) (24-44) % [place] % (Auto) (2-6) % Eos % (Auto) (2-4) % Baso % (Auto) (0-1) % PT (9.5-12.0) sec INR (0.80-1.20) APTT (27.0-36.0) sec Sodium 141 (140-148) mmol/L Potassium 3.2 L (3.6-5.2) mmol/L Chloride 99 L (100-108) mmol/L Carbon Dioxide 25 (21-32) mmol/L Anion Gap 20.2 H (5.0-14.0) mmol/L BUN 9 D (7-18) mg/dL Creatinine 0.7 (0.6-1.0) mg/dL Est Cr Clr Drug Dosing 95.17 mL/min Estimated GFR (MDRD) > 60 (>60) Glucose 120 H (74-106) mg/dL Calcium 9.5 (8.5-10.1) mg/dL Total Bilirubin 2.6 H (0.2-1.0) mg/dL AST 229 H (15-37) U/L ALT 64 (12-78) U/L Alkaline Phosphatase 324 H (46-116) U/L Total Protein 7.5 (6.4-8.2) g/dL Albumin 3.0 L (3.4-5.0) g/dL Globulin 4.5 H (2.3-3.5) g/dL Albumin/Globulin Ratio 0.7 L (1.2-2.2) Lipase 73 (73-393) U/L Urine Color Other A (YELLOW) Urine Appearance Turbid A (CLEAR) Urine pH 6.0 (5.0-8.0) Ur Specific [place] >= 1.030 (1.008-1.030) Urine Protein 100 H (NEGATIVE) mg/dL Urine Glucose (UA) 100 H (NEGATIVE) mg/dL Urine Ketones 40 H (NEGATIVE) mg/dL Urine Occult Blood Small H (NEGATIVE) Urine Nitrite Positive H (NEGATIVE) Urine Bilirubin Large H (NEGATIVE) Urine Urobilinogen 2.0 H (0.2-1.0) EU/dL Ur Leukocyte Esterase Negative (NEGATIVE) Urine RBC 0-5 (0-5) Urine WBC 5-10 H (0-5) Ur Epithelial Cells Many Amorphous Sediment Not seen Urine Bacteria Many Urine Mucus Few Urinalysis Comment Ethyl Alcohol mg/dL Meds: Medications Generic Name Dose Route Start Last Admin Trade Name Freq PRN Reason Stop Dose Admin Sodium Chloride 1,000 mls @ 999 mls/hr 03/09/19 10:30 03/09/19 10:35 Normal Saline IV 999 mls/hr ASDIRECTED KAREN Administration Discontinued Medications Generic Name Dose Route Start Last Admin Trade Name Freq PRN Reason Stop Dose Admin Lorazepam 0.5 mg 03/09/19 10:41 03/09/19 10:47 Ativan IVPUSH 03/09/19 10:42 0.5 mg ONETIME ONE Administration Ondansetron HCl 4 mg 03/09/19 10:28 03/09/19 10:38 Zofran IVPUSH 03/09/19 10:29 4 mg ONETIME ONE Administration Pantoprazole Sodium 40 mg 03/09/19 10:36 03/09/19 10:41 Protonix Iv IVPUSH 03/09/19 10:37 40 mg ONETIME ONE Administration - Re-Assessments/Exams Free Text/Narrative Re-Assessment/Exam: 03/09/19 11:26 pt has elevated liver enzymes. Her lipase is normal. Her hg is good. She has a etoh level of 66. She is already shakey. .. Departure - Departure Time of Disposition: 11:28 Disposition: Admitted As Inpatient 68 Preliminary Cause of *Q: Sepsis & Multi System Organ Failure Condition: Fair Clinical Impression: Upper GI bleeding, History of ETOH abuse, Dehydration, Elevated liver enzymes, UTI (urinary tract infection) - Discharge Information Referrals: Hipolito Dawkins MD [Primary Care Provider] - Forms: ED Department Discharge Care Plan Goals: admit to Dr Fisher - My Orders Last 24 Hours: My Active Orders 03/09/19 10:30 Sodium Chloride 0.9% [Normal Saline] 1,000 ml IV ASDIRECTED 03/09/19 11:16 CULTURE URINE [RM] Stat 03/09/19 11:20 MAGNESIUM [CHEM] Stat 03/09/19 11:30 Sodium Chloride 0.9% [Normal Saline] 1,000 ml IV ASDIRECTED - Assessment/Plan Last 24 Hours: My Active Orders 03/09/19 10:30 Sodium Chloride 0.9% [Normal Saline] 1,000 ml IV ASDIRECTED 03/09/19 11:16 CULTURE URINE [RM] Stat 03/09/19 11:20 MAGNESIUM [CHEM] Stat 03/09/19 11:30 Sodium Chloride 0.9% [Normal Saline] 1,000 ml IV ASDIRECTED
[2019-03-09] MEDS ORDERED: Pantoprazole 40 MG Vial IVPUSH ONE ×2 (10:36→17:30)
[2019-03-09] MEDS ORDERED: LORazepam 2 MG/ML SDV IVPUSH ONE (10:41)
--- NOTE | 2019-03-09 13:29 | PCM.HP.2 ---
H&P History of Present Illness - General Date of Service: 03/09/19 Admit Problem/Dx: Admission Diagnosis/Problem Admission Diagnosis/Problem Bleeding Source of Information: Patient, Family, Old Records, Provider, RN Notes Reviewed History Limitations: Reports: No Limitations - History of Present Illness Initial Comments - Free Text/Narative: Ms. Ayala is a 43-year-old woman who was admitted through the emergency department with hematemesis and probable underlying upper GI bleed. She does have intermittent difficulty with nausea and vomiting, this morning was the first episode of hematemesis that she is ever experienced. She has a known in long-standing history of alcohol abuse and is felt to be developing hepatic cirrhosis. This morning had 3-4 episodes of hematemesis one of which occurred in the emergency department. Hemoglobin is within normal range at 12 and she is hemodynamically stable. She denies any previous history of upper GI bleed or ulcer disease. abd Pain Score (Numeric/FACES): 6 - Related Data Allergies/Adverse Reactions: Allergies Allergy/AdvReac Type Severity Reaction Status Date / Time sulfamethoxazole Allergy Itching Verified 03/09/19 10:20 [From Bactrim] trimethoprim [From Bactrim] Allergy Itching Verified 03/09/19 10:20 Home Medications: Home Meds Omeprazole 20 mg PO DAILY 12/18/17 [History] Potassium Chloride 20 meq PO TID 08/21/18 [History] Spironolactone [Aldactone] 12.5 mg PO DAILY 08/21/18 [History] Loperamide [Imodium] 2 mg PO Q6H 01/01/19 [History] Magnesium Oxide [Magnesium] 400 mg PO DAILY 01/01/19 [History] Multivitamin [Multi-Vitamin Daily] 1 each PO DAILY 01/01/19 [History] Past Medical History HEENT History: Reports: Impaired Vision Cardiovascular History: Reports: Hypertension Gastrointestinal History: Reports: Cirrhosis, GERD 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, Recurrent MEDICAL ART THERAPIST History: Reports: Musculoskeletal History: Reports: Fracture Psychiatric History: Reports: Bipolar Hematologic History: Reports: Blood Transfusion(s) Other Dermatologic History: tattoos - Infectious Disease History Infectious Disease History: Reports: None - Past Surgical History Female Surgical History: Reports: Tubal Ligation Social & Family History - Family History Cardiac: Reports: Bypass, Hypertension, NH, Pacemaker Psychiatric: Reports: Bipolar, Schizophrenia Endocrine/Metabolic: Reports: Diabetes, type II Oncologic: Reports: Colon - Tobacco Use Smoking Status *Q: Current Every Day Smoker Years of Tobacco use: 20 Packs/Tins Daily: 0.5 - Caffeine Use Caffeine Use: Reports: None - Alcohol Use Days Per Week of Alcohol Use: 7 Number of Drinks Per Day: 2 Total Drinks Per Week: 14 - Recreational Drug Use Recreational Drug Use: No H&P Review of Systems - Review of Systems: Review Of Systems: See Below General: Reports: Malaise, Weakness, Diaphoresis. Denies: Fever, Chills HEENT: Reports: No Symptoms Pulmonary: Reports: No Symptoms Cardiovascular: Reports: No Symptoms Gastrointestinal: Reports: Hematemesis, Nausea, Vomiting. Denies: Abdominal Pain, Black Stool, Bloody Stool, Constipation, Diarrhea, Difficulty Swallowing, Distension 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: Reports: No Symptoms Musculoskeletal: Reports: No Symptoms Skin: Reports: No Symptoms Psychiatric: Reports: No Symptoms Neurological: Reports: No Symptoms Hematologic/Lymphatic: Reports: No Symptoms Immunologic: Reports: No Symptoms Exam - Exam Exam: See Below - Vital Signs Vital Signs: Last Vital Signs Temp 97.2 F 03/09/19 10:13 Pulse 131 H 03/09/19 12:06 Resp 15 03/09/19 12:06 BP 140/92 H 03/09/19 12:06 Pulse Ox 94 L 03/09/19 12:06 Weight: 143 lb 1.28 oz - Exam General: Alert, Oriented, Cooperative, Mild Distress HEENT: Conjunctiva Clear, Hearing Intact, Mucosa Moist & [place], Normal Nasal Septum, Posterior Pharynx Clear, Pupils Equal Neck: Supple, Trachea Midline, +2 Carotid Pulse wo Bruit Lungs: Clear to Auscultation, Normal Respiratory Effort Cardiovascular: Regular Rate, Regular Rhythm, Normal S1, Normal S2. No: Systolic Murmur, Diastolic Murmur GI/Abdominal Exam: Soft, Non-Tender, No Organomegaly, No Distention Back Exam: Normal Inspection, Full Range of Motion Extremities: Non-Tender, No Pedal Edema Skin: Warm, Dry, Intact Neurological: Cranial Nerves Intact, Strength Equal Bilateral, Normal Speech, Normal Tone, Sensation Intact. No: Focal Deficit Neuro Extensive - Mental Status: Alert, Oriented x3, Normal Mood/Affect, Normal Cognition, Memory Intact - Patient Data Lab Results Last 24 hrs: Laboratory Results - last 24 hr 03/09/19 03/09/19 03/09/19 Range/Units 10:32 10:32 10:32 WBC (4.5-11.0) K/uL RBC (3.30-5.50) M/uL Hgb (12.0-15.0) g/dL Hct (36.0-48.0) % MCV (80-98) fL MCH (27-31) pg MCHC (32-36) % Plt Count (150-400) K/uL Neut % (Auto) (36-66) % Lymph % (Auto) (24-44) % [place] % (Auto) (2-6) % Eos % (Auto) (2-4) % Baso % (Auto) (0-1) % PT 12.4 H (9.5-12.0) sec INR 1.16 (0.80-1.20) APTT 25.2 L (27.0-36.0) sec Sodium (140-148) mmol/L Potassium (3.6-5.2) mmol/L Chloride (100-108) mmol/L Carbon Dioxide (21-32) mmol/L Anion Gap (5.0-14.0) mmol/L BUN (7-18) mg/dL Creatinine (0.6-1.0) mg/dL Est Cr Clr Drug Dosing mL/min Estimated GFR (MDRD) (>60) Glucose (74-106) mg/dL Calcium (8.5-10.1) mg/dL Magnesium (1.8-2.4) mg/dL Total Bilirubin (0.2-1.0) mg/dL AST (15-37) U/L ALT (12-78) U/L Alkaline Phosphatase (46-116) U/L Total Protein (6.4-8.2) g/dL Albumin (3.4-5.0) g/dL Globulin (2.3-3.5) g/dL Albumin/Globulin Ratio (1.2-2.2) Lipase (73-393) U/L Urine Color (YELLOW) Urine Appearance (CLEAR) Urine pH (5.0-8.0) Ur Specific [place] (1.008-1.030) Urine Protein (NEGATIVE) mg/dL Urine Glucose (UA) (NEGATIVE) mg/dL Urine Ketones (NEGATIVE) mg/dL Urine Occult Blood (NEGATIVE) Urine Nitrite (NEGATIVE) Urine Bilirubin (NEGATIVE) Urine Urobilinogen (0.2-1.0) EU/dL Ur Leukocyte Esterase (NEGATIVE) Urine RBC (0-5) Urine WBC (0-5) Ur Epithelial Cells Amorphous Sediment Urine Bacteria Urine Mucus Urinalysis Comment Ethyl Alcohol 66 mg/dL Blood Type A POSITIVE Gel Antibody Screen Negative Crossmatch See Detail 03/09/19 03/09/19 03/09/19 Range/Units 10:35 10:35 10:35 WBC 11.4 H (4.5-11.0) K/uL RBC 3.50 (3.30-5.50) M/uL Hgb 12.5 (12.0-15.0) g/dL Hct 37.2 (36.0-48.0) % MCV 106 H (80-98) fL MCH 36 H (27-31) pg MCHC 34 (32-36) % Plt Count 215 (150-400) K/uL Neut % (Auto) 80 H (36-66) % Lymph % (Auto) 10 L (24-44) % [place] % (Auto) 9 H (2-6) % Eos % (Auto) 1 L (2-4) % Baso % (Auto) 0 (0-1) % PT (9.5-12.0) sec INR (0.80-1.20) APTT (27.0-36.0) sec Sodium 141 (140-148) mmol/L Potassium 3.2 L (3.6-5.2) mmol/L Chloride 99 L (100-108) mmol/L Carbon Dioxide 25 (21-32) mmol/L Anion Gap 20.2 H (5.0-14.0) mmol/L BUN 9 D (7-18) mg/dL Creatinine 0.7 (0.6-1.0) mg/dL Est Cr Clr Drug Dosing 95.17 mL/min Estimated GFR (MDRD) > 60 (>60) Glucose 120 H (74-106) mg/dL Calcium 9.5 (8.5-10.1) mg/dL Magnesium (1.8-2.4) mg/dL Total Bilirubin 2.6 H (0.2-1.0) mg/dL AST 229 H (15-37) U/L ALT 64 (12-78) U/L Alkaline Phosphatase 324 H (46-116) U/L Total Protein 7.5 (6.4-8.2) g/dL Albumin 3.0 L (3.4-5.0) g/dL Globulin 4.5 H (2.3-3.5) g/dL Albumin/Globulin Ratio 0.7 L (1.2-2.2) Lipase 73 (73-393) U/L Urine Color (YELLOW) Urine Appearance (CLEAR) Urine pH (5.0-8.0) Ur Specific [place] (1.008-1.030) Urine Protein (NEGATIVE) mg/dL Urine Glucose (UA) (NEGATIVE) mg/dL Urine Ketones (NEGATIVE) mg/dL Urine Occult Blood (NEGATIVE) Urine Nitrite (NEGATIVE) Urine Bilirubin (NEGATIVE) Urine Urobilinogen (0.2-1.0) EU/dL Ur Leukocyte Esterase (NEGATIVE) Urine RBC (0-5) Urine WBC (0-5) Ur Epithelial Cells Amorphous Sediment Urine Bacteria Urine Mucus Urinalysis Comment Ethyl Alcohol mg/dL Blood Type Gel Antibody Screen Crossmatch 03/09/19 03/09/19 Range/Units 10:36 10:38 WBC (4.5-11.0) K/uL RBC (3.30-5.50) M/uL Hgb (12.0-15.0) g/dL Hct (36.0-48.0) % MCV (80-98) fL MCH (27-31) pg MCHC (32-36) % Plt Count (150-400) K/uL Neut % (Auto) (36-66) % Lymph % (Auto) (24-44) % [place] % (Auto) (2-6) % Eos % (Auto) (2-4) % Baso % (Auto) (0-1) % PT (9.5-12.0) sec INR (0.80-1.20) APTT (27.0-36.0) sec Sodium (140-148) mmol/L Potassium (3.6-5.2) mmol/L Chloride (100-108) mmol/L Carbon Dioxide (21-32) mmol/L Anion Gap (5.0-14.0) mmol/L BUN (7-18) mg/dL Creatinine (0.6-1.0) mg/dL Est Cr Clr Drug Dosing mL/min Estimated GFR (MDRD) (>60) Glucose (74-106) mg/dL Calcium (8.5-10.1) mg/dL Magnesium 1.2 L (1.8-2.4) mg/dL Total Bilirubin (0.2-1.0) mg/dL AST (15-37) U/L ALT (12-78) U/L Alkaline Phosphatase (46-116) U/L Total Protein (6.4-8.2) g/dL Albumin (3.4-5.0) g/dL Globulin (2.3-3.5) g/dL Albumin/Globulin Ratio (1.2-2.2) Lipase (73-393) U/L Urine Color Other A (YELLOW) Urine Appearance Turbid A (CLEAR) Urine pH 6.0 (5.0-8.0) Ur Specific [place] >= 1.030 (1.008-1.030) Urine Protein 100 H (NEGATIVE) mg/dL Urine Glucose (UA) 100 H (NEGATIVE) mg/dL Urine Ketones 40 H (NEGATIVE) mg/dL Urine Occult Blood Small H (NEGATIVE) Urine Nitrite Positive H (NEGATIVE) Urine Bilirubin Large H (NEGATIVE) Urine Urobilinogen 2.0 H (0.2-1.0) EU/dL Ur Leukocyte Esterase Negative (NEGATIVE) Urine RBC 0-5 (0-5) Urine WBC 5-10 H (0-5) Ur Epithelial Cells Many Amorphous Sediment Not seen Urine Bacteria Many Urine Mucus Few Urinalysis Comment Ethyl Alcohol mg/dL Blood Type Gel Antibody Screen Crossmatch Result Diagrams: 03/09/19 10:35 03/09/19 10:35 *Q Meaningful Use (ADM) - VTE *Q VTE Pharmacological Contraindications *Q: Active Hemorrhage - VTE Risk Assess *Q Each Risk Factor Represents 1 Point: Age 41 - 59 years Total Score 1 Point Risk Factors: 1 Each Risk Factor Represents 2 Points: None Total Score 2 Point Risk Factors: 0 Each Risk Factor Represents 3 Points: None Total Score 3 Point Risk Factors: 0 Each Risk Factor Represents 5 Points: None Total Score 5 Point Risk Factors: 0 Venous Thromboembolism Risk Factor Score *Q: 1 Problem List Initiated/Reviewed/Updated: Yes Orders Last 24hrs: Active Orders 24 hr Category Date Time Status Patient Status Manage Transfer [TRANSFER] Routine ADT 03/09/19 13:08 Active CULTURE URINE [RM] Stat Lab 03/09/19 11:19 Received RED BLOOD CELLS LP [BBK] Stat Lab 03/09/19 10:32 Results TYPE AND SCREEN [BBK] Stat Lab 03/09/19 10:32 Results Sodium Chloride 0.9% [Normal Saline] 1,000 ml Med 03/09/19 10:30 Active IV ASDIRECTED Sodium Chloride 0.9% [Normal Saline] 1,000 ml Med 03/09/19 11:30 Active IV ASDIRECTED Resuscitation Status Routine Resus Stat 03/09/19 13:14 Ordered Medication Orders Sodium Chloride (Normal Saline) 1,000 mls @ 999 mls/hr IV ASDIRECTED [facility] Last Admin: 03/09/19 10:35 Dose: 999 mls/hr Sodium Chloride (Normal Saline) 1,000 mls @ 999 mls/hr IV ASDIRECTED [facility]AREN Last Admin: 03/09/19 12:26 Dose: 999 mls/hr Assessment/Plan Comment:: ASSESSMENT AND PLAN UPPER GI BLEED-she has a history of esophageal reflux but no history of ulcer disease. Underlying hepatic cirrhosis secondary to long-standing alcohol use raises the possibility of esophageal varices. -Lower liquid diet -Serial hemoglobin levels -Nothing by mouth after midnight -Consult Dr. Diamond for EGD in a.m. -Protonix 40 mg IV every 12 hours ALCOHOL WITHDRAWAL-history of long-standing use, has significantly decreased alcohol use over the past few days. -Alcohol withdrawal protocol -Gabapentin 400 mg by mouth every 8 hours 4 days, then 200 mg every 8 hours 4 days ALCOHOLIC HEPATITIS-underlying history of probable cirrhosis -Monitor daily liver tests MAINTENANCE ISSUES -DVT prophylaxis; not indicated -GI prophylaxis; Protonix as above -Odom catheter; not indicated -Nutrition; clear liquid diet, nothing by mouth after midnight -Nicotine dependence; not required CODE STATUS-FULL CODE ADMISSION STATUS-patient will be admitted to inpatient status, expect at least a 2 night hospital stay for evaluation and management of problems as outlined above. At the time of this admission I do not reasonably expected evaluation and management of this problem will require more than a 96 hour hospital stay. DISPOSITION-anticipate discharge to home after the hospital stay. PRIMARY CARE PROVIDER-Dr. Dawkins - Mortality Measure Prognosis:: Good
[2019-03-09] MEDS ORDERED: LORazepam 1 MG Tab PO PRN (13:30)
[2019-03-09] MEDS ORDERED: MVI, Adult with Vitamin K 10 ML, Thiamine 100 MG, Folic Acid 1 MG, Magnesium Sulfate 2 ... IV ONE ×5 (14:00)
[2019-03-09] MEDS: Ondansetron 4 MG/2 ML SDV IV PRN ×2 (14:19→20:43)
[2019-03-09] MEDS: Folic Acid 1 MG Tab PO SCH (14:23)
[2019-03-09] MEDS: Potassium Chloride 20 MEQ Tab.ER PO SCH ×2 (14:23→20:43)
[2019-03-09] MEDS: Thiamine 100 MG Tab PO SCH (14:23)
[2019-03-09] MEDS: Gabapentin 400 MG Cap PO SCH ×2 (14:24→21:09)
[2019-03-09] MEDS: LORazepam 2 MG/ML SDV IV PRN ×3 (15:12→21:55)
[2019-03-09] MEDS ORDERED: Potassium Chloride Riders 40 MEQ in Premix Bag 1 BAG IV ONE (17:23)
[2019-03-09] MEDS: Sodium Chloride 0.9% 100 ML with Pantoprazole 80 MG IV SCH ×2 (17:54)
[2019-03-09] MEDS: Octreotide 500 MCG in Sodium Chloride 0.9% 497.5 ML IV SCH (18:00)
[2019-03-09] MEDS: Potassium Chloride 20 MEQ, Lidocaine 1% 2 ML in Sodium Chloride 0.9% 100 ML IV SCH ×2 (18:09→20:27)
[2019-03-09] MEDS ORDERED: Pantoprazole 40 MG Vial IV SCH (22:00)
[2019-03-10] MEDS: LORazepam 2 MG/ML SDV IV PRN ×2 (03:24→11:45)
[2019-03-10] MEDS: Sodium Chloride 0.9% 100 ML with Pantoprazole 80 MG IV SCH ×6 (03:27→23:09)
[2019-03-10] MEDS: Octreotide 500 MCG in Sodium Chloride 0.9% 497.5 ML IV SCH ×3 (03:28→23:10)
[2019-03-10] MEDS: Sodium Chloride 0.9% 10 ML Syringe FLUSH PRN (03:31)
[2019-03-10] MEDS ORDERED: Propofol 200 MG/20 ML SDV ONE (08:22)
[2019-03-10] MEDS ORDERED: fentaNYL 100 MCG/2 ML SDV ONE (08:22)
[2019-03-10] MEDS ORDERED: Midazolam 1 MG/ML 2 ML SDV ONE (08:22)
[2019-03-10] MEDS: Gabapentin 400 MG Cap PO SCH ×4 (09:07→21:17)
[2019-03-10] MEDS ORDERED: Magnesium Sulfate/Water 2 GM in Premix Bag 1 BAG IV ONE (10:00)
[2019-03-10] MEDS: Spironolactone 25 MG Tab PO SCH (11:34)
[2019-03-10] MEDS: Potassium Chloride 20 MEQ Tab.ER PO SCH ×3 (11:35→20:29)
[2019-03-10] MEDS: Thiamine 100 MG Tab PO SCH (11:35)
[2019-03-10] MEDS: Folic Acid 1 MG Tab PO SCH (11:36)
[2019-03-10] MEDS: Magnesium Oxide 400 MG Tab PO SCH (11:48)
--- NOTE | 2019-03-10 12:23 | PCM.PN ---
- General Info Date of Service: 03/10/19 Subjective Update: Ms. Ayala experience further upper GI bleeding following admission yesterday and her hemoglobin dropped to 7.9 last night. Because of ongoing active bleeding she was transfused 1 unit of red blood cells. Hemoglobin this morning was up to 9.0. EGD performed this morning by Dr. Diamond showed evidence of esophageal varices, esophagitis, gastritis, and gastric erosions. It appeared the most likely source of bleeding was from the gastric erosions. She reports she otherwise feels well and denies significant abdominal pain. Functional Status: Reports: Tolerating Diet, Ambulating, Urinating - Review of Systems General: Reports: Weakness. Denies: Fever, Chills Pulmonary: Reports: No Symptoms Cardiovascular: Reports: No Symptoms Gastrointestinal: Reports: No Symptoms. Denies: Difficulty Swallowing, Nausea, Vomiting 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: Reports: No Symptoms - Patient Data Vitals - Most Recent: Last Vital Signs Temp 97.2 F 03/10/19 10:25 Pulse 95 03/10/19 10:25 Resp 16 03/10/19 10:25 BP 126/84 03/10/19 10:25 Pulse Ox 94 L 03/10/19 10:25 Weight - Most Recent: 143 lb I&O - Last 24 Hours: Intake & Output 03/09/19 03/10/19 03/10/19 22:59 06:59 14:59 Intake Total 1095 1515 1768 Balance 1095 1515 1768 Lab Results Last 24 Hours: Laboratory Results - last 24 hr 03/09/19 03/09/19 03/09/19 Range/Units 10:32 17:00 23:02 WBC (4.5-11.0) K/uL RBC (3.30-5.50) M/uL Hgb 9.5 L D 7.9 L (12.0-15.0) g/dL Hct (36.0-48.0) % MCV (80-98) fL MCH (27-31) pg MCHC (32-36) % Plt Count (150-400) K/uL Neut % (Auto) (36-66) % Lymph % (Auto) (24-44) % [place] % (Auto) (2-6) % Eos % (Auto) (2-4) % Baso % (Auto) (0-1) % Sodium (140-148) mmol/L Potassium (3.6-5.2) mmol/L Chloride (100-108) mmol/L Carbon Dioxide (21-32) mmol/L Anion Gap (5.0-14.0) mmol/L BUN (7-18) mg/dL Creatinine (0.6-1.0) mg/dL Est Cr Clr Drug Dosing mL/min Estimated GFR (MDRD) (>60) Glucose (74-106) mg/dL Calcium (8.5-10.1) mg/dL Magnesium (1.8-2.4) mg/dL Total Bilirubin (0.2-1.0) mg/dL AST (15-37) U/L ALT (12-78) U/L Alkaline Phosphatase (46-116) U/L Total Protein (6.4-8.2) g/dL Albumin (3.4-5.0) g/dL Globulin (2.3-3.5) g/dL Albumin/Globulin Ratio (1.2-2.2) Blood Type A POSITIVE Gel Antibody Screen Negative Crossmatch See Detail 03/10/19 03/10/19 Range/Units 04:50 04:50 WBC 5.3 (4.5-11.0) K/uL RBC 2.64 L (3.30-5.50) M/uL Hgb 9.0 L (12.0-15.0) g/dL Hct 27.6 L (36.0-48.0) % MCV 105 H (80-98) fL MCH 34 H (27-31) pg MCHC 33 (32-36) % Plt Count 121 L (150-400) K/uL Neut % (Auto) 65 (36-66) % Lymph % (Auto) 21 L (24-44) % [place] % (Auto) 10 H (2-6) % Eos % (Auto) 3 (2-4) % Baso % (Auto) 1 (0-1) % Sodium 141 (140-148) mmol/L Potassium 4.3 (3.6-5.2) mmol/L Chloride 108 (100-108) mmol/L Carbon Dioxide 25 (21-32) mmol/L Anion Gap 7.8 (5.0-14.0) mmol/L BUN 9 (7-18) mg/dL Creatinine 0.5 L (0.6-1.0) mg/dL Est Cr Clr Drug Dosing 133.24 mL/min Estimated GFR (MDRD) > 60 (>60) Glucose 90 (74-106) mg/dL Calcium 7.3 L D (8.5-10.1) mg/dL Magnesium 1.7 L (1.8-2.4) mg/dL Total Bilirubin 3.7 H (0.2-1.0) mg/dL AST 126 H (15-37) U/L ALT 38 (12-78) U/L Alkaline Phosphatase 197 H (46-116) U/L Total Protein 5.1 L (6.4-8.2) g/dL Albumin 2.1 L (3.4-5.0) g/dL Globulin 3.0 (2.3-3.5) g/dL Albumin/Globulin Ratio 0.7 L (1.2-2.2) Blood Type Gel Antibody Screen Crossmatch [place] Results Last 24 Hours: Microbiology 03/09/19 11:19 Urine Culture - Preliminary Urine, Bladder MIXED GILMER DAY 1 Med Orders - Current: Current Medications Folic Acid (Folic Acid) 1 mg PO DAILY [facility] Last Admin: 03/10/19 11:36 Dose: 1 mg Gabapentin (Neurontin) 400 mg PO Q8H [facility] Stop: 03/13/19 06:01 Last Admin: 03/10/19 11:15 Dose: 400 mg Pantoprazole Sodium 80 mg/ (Sodium Chloride) 100 mls @ 10 mls/hr IV .Q10H [facility] Last Admin: 03/10/19 03:27 Dose: 10 mls/hr Octreotide Acetate 500 mcg/ (Sodium Chloride) 500 mls @ 50 mls/hr IV Q10H [facility] Last Admin: 03/10/19 03:28 Dose: 50 mcg/hr, 50 mls/hr Lorazepam (Ativan) 0 mg PO ASDIRECTED PRN; Protocol PRN Reason: Withdrawal Symptoms Last Admin: 03/10/19 11:31 Dose: 1 mg Lorazepam (Ativan) 0 mg IV ASDIRECTED PRN; Protocol PRN Reason: Withdrawal Symptoms Last Admin: 03/10/19 11:45 Dose: 1 mg Magnesium Oxide (Magnesium Oxide) 400 mg PO DAILY [facility] Last Admin: 03/10/19 11:48 Dose: 400 mg Ondansetron HCl (Zofran) 4 mg IV Q4H PRN PRN Reason: Nausea/Vomiting Last Admin: 03/09/19 20:43 Dose: 4 mg Potassium Chloride (Klor-Con M20) 20 meq PO TID [facility] Last Admin: 03/10/19 11:35 Dose: 20 meq Sodium Chloride (Saline Flush) 10 ml FLUSH ASDIRECTED PRN PRN Reason: Keep Vein Open Last Admin: 03/10/19 03:31 Dose: 10 ml Spironolactone (Aldactone) 12.5 mg PO DAILY [facility] Last Admin: 03/10/19 11:34 Dose: 12.5 mg Thiamine HCl (Vitamin B-1) 100 mg PO DAILY [facility] Last Admin: 03/10/19 11:35 Dose: 100 mg Discontinued Medications Fentanyl (Sublimaze) Confirm Administered Dose 100 mcg .ROUTE .STK-MED ONE Stop: 03/10/19 08:23 Sodium Chloride (Normal Saline) 1,000 mls @ 999 mls/hr IV ASDIRECTED [facility] Last Admin: 03/09/19 10:35 Dose: 999 mls/hr Sodium Chloride (Normal Saline) 1,000 mls @ 999 mls/hr IV ASDIRECTED [facility] Last Admin: 03/09/19 12:26 Dose: 999 mls/hr Multivitamins/Minerals 10 ml/Thiamine HCl 100 mg/ Folic Acid 1 mg/ Magnesium Sulfate 2 gm/ Sodium Chloride 1,015.2 mls @ 100 mls/hr IV ONETIME ONE Stop: 03/10/19 00:09 Last Admin: 03/09/19 14:19 Dose: 100 mls/hr Sodium Chloride (Normal Saline) 1,000 mls @ 125 mls/hr IV ASDIRECTED [facility] Last Admin: 03/10/19 02:10 Dose: 125 mls/hr Potassium Chloride 20 meq/Lidocaine HCl 2 ml/ Sodium Chloride 112 mls @ 56 mls/ hr IV Q2H [facility] Stop: 03/09/19 22:29 Last Admin: 03/09/19 20:27 Dose: 56 mls/hr Magnesium Sulfate 2 gm/ Premix 50 mls @ 25 mls/hr IV ONETIME ONE Stop: 03/10/19 11:59 Last Admin: 03/10/19 11:47 Dose: 25 mls/hr Lorazepam (Ativan) 0.5 mg IVPUSH ONETIME ONE Stop: 03/09/19 10:42 Last Admin: 03/09/19 10:47 Dose: 0.5 mg Midazolam HCl (Versed 1 Mg/Ml) Confirm Administered Dose 2 mg .ROUTE .STK-MED ONE Stop: 03/10/19 08:23 Ondansetron HCl (Zofran) 4 mg IVPUSH ONETIME ONE Stop: 03/09/19 10:29 Last Admin: 03/09/19 10:38 Dose: 4 mg Pantoprazole Sodium (Protonix Iv) 40 mg IVPUSH ONETIME ONE Stop: 03/09/19 10:37 Last Admin: 03/09/19 10:41 Dose: 40 mg Pantoprazole Sodium (Protonix Iv) 40 mg IVPUSH ONETIME ONE Stop: 03/09/19 17:31 Last Admin: 03/09/19 17:52 Dose: 40 mg Propofol (Diprivan 20 Ml) Confirm Administered Dose 200 mg .ROUTE .STK-MED ONE Stop: 03/10/19 08:23 - Exam General: Alert, Oriented, Cooperative, No Acute Distress Lungs: Clear to Auscultation, Normal Respiratory Effort Cardiovascular: Regular Rhythm, No Murmurs, Tachycardia GI/Abdominal Exam: Soft, Non-Tender, No Organomegaly, No Distention Extremities: Non-Tender, No Pedal Edema - Problem List Review Problem List Initiated/Reviewed/Updated: Yes - My Orders Last 24 Hours: My Active Orders 03/09/19 13:14 Resuscitation Status Routine 03/09/19 13:30 Patient Status [ADT] Routine Ambulate [RC] QID CIWAA Assessment [RC] Q4H Cardiac Monitoring [RC] Q6H Height and Weight [RC] DAILY Intake and Output [RC] Q12H Notify Provider Consults [RC] ASDIRECTED Notify Provider Vital Signs [RC] ASDIRECTED Notify Provider [RC] PRN Oxygen Therapy [RC] PRN Peripheral IV Care [RC] . DIRECTED Up With Assistance [RC] ASDIRECTED Up to Chair [RC] QID VTE/DVT Education [RC] Per Unit Routine Vital Signs [RC] Q4H Consult to Physician [CONS] Routine Folic Acid 1 mg PO DAILY LORazepam [Ativan] See Protocol IV ASDIRECTED PRN LORazepam [Ativan] See Protocol PO ASDIRECTED PRN Ondansetron [Zofran] 4 mg IV Q4H PRN Sodium Chloride 0.9% [Saline Flush] 10 ml FLUSH ASDIRECTED PRN Thiamine [Vitamin B-1] 100 mg PO DAILY Peripheral IV Insertion Adult [OM.PC] Routine VTE Pharmacological Contraindications [AST] Per Unit Routine 03/09/19 14:00 Gabapentin [Neurontin] 400 mg PO Q8H Potassium Chloride [Klor-Con M20] 20 meq PO TID 03/09/19 17:30 Octreotide [SandoSTATIN] 500 mcg Sodium Chloride 0.9% [Normal Saline] 497.5 ml IV Q10H Sodium Chloride 0.9% [Normal Saline] 100 ml Pantoprazole [ProTONIX IV] 80 mg IV 10 mls/hr 03/09/19 23:49 Transfuse Red Blood Cells [COMM] Routine 03/10/19 09:00 Magnesium Oxide 400 mg PO DAILY Spironolactone [Aldactone] 12.5 mg PO DAILY 03/10/19 12:16 Convert IV to Saline Lock [OM.PC] Routine 03/10/19 13:00 HGB [HEMOGLOBIN] [HEME] Stat 03/10/19 21:00 HGB [HEMOGLOBIN] [HEME] Stat 03/10/19 Breakfast Nothing per Oral After Midnight Diet [DIET] 03/11/19 05:00 BASIC METABOLIC PANEL,BMP [CHEM] Timed CBC WITH AUTO DIFF [HEME] Timed - Plan Plan:: ASSESSMENT AND PLAN GASTRITIS WITH GASTRIC EROSIONS CAUSING UPPER GI BLEED-esophageal varices noted at the time of EGD, not felt to be the source of bleeding. -Clear liquid diet -Serial hemoglobin levels -Continue IV Protonix over the next 24 hours -Continue octreotide infusion over the next 24 hours ALCOHOL WITHDRAWAL-history of long-standing use, has significantly decreased alcohol use over the past few days.No significant evidence of alcohol withdrawal noted. Discussed possible alcohol treatment which she refuses at the present time. -Alcohol withdrawal protocol -Gabapentin 400 mg by mouth every 8 hours 4 days, then 200 mg every 8 hours 4 days ALCOHOLIC HEPATITIS-underlying history of probable cirrhosis, bilirubin has increased to 3.7 -Monitor daily liver tests MAINTENANCE ISSUES -DVT prophylaxis; not indicated -GI prophylaxis; Protonix as above -Odom catheter; not indicated -Nutrition; clear liquid diet, nothing by mouth after midnight -Nicotine dependence; not required CODE STATUS-FULL CODE ADMISSION STATUS-patient will be admitted to inpatient status, expect at least a 2 night hospital stay for evaluation and management of problems as outlined above. At the time of this admission I do not reasonably expected evaluation and management of this problem will require more than a 96 hour hospital stay. DISPOSITION-anticipate discharge to home after the hospital stay. PRIMARY CARE PROVIDER-Dr. Dawkins
[2019-03-11] MEDS: Gabapentin 400 MG Cap PO SCH ×3 (06:23→21:18)
[2019-03-11] MEDS: Folic Acid 1 MG Tab PO SCH (08:23)
[2019-03-11] MEDS: Spironolactone 25 MG Tab PO SCH (08:23)
[2019-03-11] MEDS: Potassium Chloride 20 MEQ Tab.ER PO SCH ×3 (08:23→21:17)
[2019-03-11] MEDS: Thiamine 100 MG Tab PO SCH (08:24)
[2019-03-11] MEDS: Magnesium Oxide 400 MG Tab PO SCH (08:25)
[2019-03-11] MEDS: Octreotide 500 MCG in Sodium Chloride 0.9% 497.5 ML IV SCH (08:36)
[2019-03-11] MEDS: Sodium Chloride 0.9% 100 ML with Pantoprazole 80 MG IV SCH ×2 (08:37)
--- NOTE | 2019-03-11 09:49 | PCM.PN ---
- General Info Date of Service: 03/11/19 Subjective Update: Ms. Ayala is been fairly stable over the past 24 hours, continues to pass some blood and clots in her stool. Hemoglobin has dropped approximately 1 unit over the past 24 hours. She has remained hemodynamically stable and is tolerating clear liquid diet. Denies significant abdominal pain and has shown no significant evidence of alcohol withdrawal. Functional Status: Reports: Tolerating Diet, Ambulating, Urinating - Review of Systems General: Reports: Weakness. Denies: Fever, Chills Pulmonary: Reports: No Symptoms Cardiovascular: Reports: No Symptoms Gastrointestinal: Reports: Melena. Denies: Abdominal Pain, Constipation, Diarrhea, Difficulty Swallowing, Nausea, Vomiting - Patient Data Vitals - Most Recent: Last Vital Signs Temp 97.4 F 03/11/19 08:00 Pulse 106 H 03/11/19 08:00 Resp 17 03/11/19 08:00 BP 121/80 03/11/19 08:00 Pulse Ox 98 03/11/19 08:00 Weight - Most Recent: 143 lb I&O - Last 24 Hours: Intake & Output 03/10/19 03/11/19 03/11/19 22:59 06:59 14:59 Intake Total 1351 909 Output Total 250 300 Balance 1101 609 Lab Results Last 24 Hours: Laboratory Results - last 24 hr 03/10/19 03/10/19 03/11/19 Range/Units 13:00 20:54 05:18 WBC Cancelled RBC Cancelled Hgb 9.1 L 8.9 L Cancelled (12.0-15.0) g/dL Hct Cancelled MCV Cancelled MCH Cancelled MCHC Cancelled Plt Count Cancelled Neut % (Auto) Cancelled Lymph % (Auto) Cancelled [place] % (Auto) Cancelled Eos % (Auto) Cancelled Baso % (Auto) Cancelled Add Manual Diff Cancelled Sodium (140-148) mmol/L Potassium (3.6-5.2) mmol/L Chloride (100-108) mmol/L Carbon Dioxide (21-32) mmol/L Anion Gap (5.0-14.0) mmol/L BUN (7-18) mg/dL Creatinine (0.6-1.0) mg/dL Est Cr Clr Drug Dosing mL/min Estimated GFR (MDRD) (>60) Glucose (74-106) mg/dL Calcium (8.5-10.1) mg/dL Total Bilirubin (0.2-1.0) mg/dL AST (15-37) U/L ALT (12-78) U/L Alkaline Phosphatase (46-116) U/L Total Protein (6.4-8.2) g/dL Albumin (3.4-5.0) g/dL Globulin (2.3-3.5) g/dL Albumin/Globulin Ratio (1.2-2.2) 03/11/19 03/11/19 Range/Units 05:18 06:09 WBC 4.6 RBC 2.45 L Hgb 8.6 L (12.0-15.0) g/dL Hct 26.0 L MCV 106 H MCH 35 H MCHC 33 Plt Count 112 L Neut % (Auto) 66 Lymph % (Auto) 22 L [place] % (Auto) 7 H Eos % (Auto) 4 Baso % (Auto) 1 Add Manual Diff Sodium 143 (140-148) mmol/L Potassium 3.9 (3.6-5.2) mmol/L Chloride 107 (100-108) mmol/L Carbon Dioxide 26 (21-32) mmol/L Anion Gap 10.5 (5.0-14.0) mmol/L BUN 52 H D (7-18) mg/dL Creatinine 2.8 H D (0.6-1.0) mg/dL Est Cr Clr Drug Dosing 23.79 mL/min Estimated GFR (MDRD) 19 L (>60) Glucose 206 H (74-106) mg/dL Calcium 8.4 L D (8.5-10.1) mg/dL Total Bilirubin 0.4 D (0.2-1.0) mg/dL AST 12 L D (15-37) U/L ALT 15 (12-78) U/L Alkaline Phosphatase 106 (46-116) U/L Total Protein 7.0 (6.4-8.2) g/dL Albumin 2.8 L (3.4-5.0) g/dL Globulin 4.2 H (2.3-3.5) g/dL Albumin/Globulin Ratio 0.7 L (1.2-2.2) [place] Results Last 24 Hours: Microbiology 03/09/19 11:19 Urine Culture - Final Urine, Bladder MIXED GILMER DAY 2 Med Orders - Current: Current Medications Folic Acid (Folic Acid) 1 mg PO DAILY [facility] Last Admin: 03/11/19 08:23 Dose: 1 mg Gabapentin (Neurontin) 400 mg PO Q8H [facility] Stop: 03/13/19 06:01 Last Admin: 03/11/19 06:23 Dose: 400 mg Lorazepam (Ativan) 0 mg PO ASDIRECTED PRN; Protocol PRN Reason: Withdrawal Symptoms Last Admin: 03/10/19 11:31 Dose: 1 mg Lorazepam (Ativan) 0 mg IV ASDIRECTED PRN; Protocol PRN Reason: Withdrawal Symptoms Last Admin: 03/10/19 11:45 Dose: 1 mg Magnesium Oxide (Magnesium Oxide) 400 mg PO DAILY [facility] Last Admin: 03/11/19 08:25 Dose: 400 mg Ondansetron HCl (Zofran) 4 mg IV Q4H PRN PRN Reason: Nausea/Vomiting Last Admin: 03/09/19 20:43 Dose: 4 mg Pantoprazole Sodium (Protonix Iv) 40 mg IVPUSH Q12H [facility] Potassium Chloride (Klor-Con M20) 20 meq PO TID [facility] Last Admin: 03/11/19 08:23 Dose: 20 meq Sodium Chloride (Saline Flush) 10 ml FLUSH ASDIRECTED PRN PRN Reason: Keep Vein Open Last Admin: 03/10/19 03:31 Dose: 10 ml Spironolactone (Aldactone) 12.5 mg PO DAILY [facility] Last Admin: 03/11/19 08:23 Dose: 12.5 mg Thiamine HCl (Vitamin B-1) 100 mg PO DAILY [facility] Last Admin: 03/11/19 08:24 Dose: 100 mg Discontinued Medications Fentanyl (Sublimaze) Confirm Administered Dose 100 mcg .ROUTE .STK-MED ONE Stop: 03/10/19 08:23 Sodium Chloride (Normal Saline) 1,000 mls @ 999 mls/hr IV ASDIRECTED [facility] Last Admin: 03/09/19 10:35 Dose: 999 mls/hr Sodium Chloride (Normal Saline) 1,000 mls @ 999 mls/hr IV ASDIRECTED [facility] Last Admin: 03/09/19 12:26 Dose: 999 mls/hr Multivitamins/Minerals 10 ml/Thiamine HCl 100 mg/ Folic Acid 1 mg/ Magnesium Sulfate 2 gm/ Sodium Chloride 1,015.2 mls @ 100 mls/hr IV ONETIME ONE Stop: 03/10/19 00:09 Last Admin: 03/09/19 14:19 Dose: 100 mls/hr Sodium Chloride (Normal Saline) 1,000 mls @ 125 mls/hr IV ASDIRECTED [facility] Last Admin: 03/10/19 02:10 Dose: 125 mls/hr Pantoprazole Sodium 80 mg/ (Sodium Chloride) 100 mls @ 10 mls/hr IV .Q10H [facility] Last Admin: 03/11/19 08:37 Dose: 10 mls/hr Octreotide Acetate 500 mcg/ (Sodium Chloride) 500 mls @ 50 mls/hr IV Q10H [facility] Last Admin: 03/11/19 08:36 Dose: 50 mcg/hr, 50 mls/hr Potassium Chloride 20 meq/Lidocaine HCl 2 ml/ Sodium Chloride 112 mls @ 56 mls/ hr IV Q2H [facility] Stop: 03/09/19 22:29 Last Admin: 03/09/19 20:27 Dose: 56 mls/hr Magnesium Sulfate 2 gm/ Premix 50 mls @ 25 mls/hr IV ONETIME ONE Stop: 03/10/19 11:59 Last Admin: 03/10/19 11:47 Dose: 25 mls/hr Lorazepam (Ativan) 0.5 mg IVPUSH ONETIME ONE Stop: 03/09/19 10:42 Last Admin: 03/09/19 10:47 Dose: 0.5 mg Midazolam HCl (Versed 1 Mg/Ml) Confirm Administered Dose 2 mg .ROUTE .STK-MED ONE Stop: 03/10/19 08:23 Ondansetron HCl (Zofran) 4 mg IVPUSH ONETIME ONE Stop: 03/09/19 10:29 Last Admin: 03/09/19 10:38 Dose: 4 mg Pantoprazole Sodium (Protonix Iv) 40 mg IVPUSH ONETIME ONE Stop: 03/09/19 10:37 Last Admin: 03/09/19 10:41 Dose: 40 mg Pantoprazole Sodium (Protonix Iv) 40 mg IVPUSH ONETIME ONE Stop: 03/09/19 17:31 Last Admin: 03/09/19 17:52 Dose: 40 mg Propofol (Diprivan 20 Ml) Confirm Administered Dose 200 mg .ROUTE .STK-MED ONE Stop: 03/10/19 08:23 - Exam General: Alert, Oriented, Cooperative, No Acute Distress Lungs: Clear to Auscultation, Normal Respiratory Effort Cardiovascular: Regular Rate, Regular Rhythm, No Murmurs GI/Abdominal Exam: Soft, Non-Tender, No Organomegaly, No Distention Extremities: Non-Tender, No Pedal Edema - Problem List Review Problem List Initiated/Reviewed/Updated: Yes - My Orders Last 24 Hours: My Active Orders 03/10/19 09:00 Magnesium Oxide 400 mg PO DAILY Spironolactone [Aldactone] 12.5 mg PO DAILY 03/10/19 12:16 Convert IV to Saline Lock [OM.PC] Routine 03/11/19 09:37 BASIC METABOLIC PANEL,BMP [CHEM] Stat 03/11/19 17:00 HGB [HEMOGLOBIN] [HEME] Stat 03/11/19 21:00 Pantoprazole [ProTONIX IV] 40 mg IVPUSH Q12H 03/11/19 Lunch Full Liquid Diet [DIET] 03/12/19 05:00 CBC WITH AUTO DIFF [HEME] Timed COMPREHENSIVE METABOLIC PN,CMP [CHEM] Timed - Plan Plan:: ASSESSMENT AND PLAN GASTRITIS WITH GASTRIC EROSIONS CAUSING UPPER GI BLEED-esophageal varices noted at the time of EGD, not felt to be the source of bleeding. -Full liquid diet -Serial hemoglobin levels -Discontinue Protonix and Octreotide infusions -Tonics 40 mg IV every 12 hours ALCOHOL WITHDRAWAL-history of long-standing use, has significantly decreased alcohol use over the past few days.No significant evidence of alcohol withdrawal noted. Discussed possible alcohol treatment which she refuses at the present time. -Alcohol withdrawal protocol -Gabapentin 400 mg by mouth every 8 hours 4 days, then 200 mg every 8 hours 4 days ALCOHOLIC HEPATITIS-underlying history of probable cirrhosis, chem profile obtained today showing normal bilirubin which I suspect his lab air and will be redrawn -Monitor daily liver tests MAINTENANCE ISSUES -DVT prophylaxis; not indicated -GI prophylaxis; Protonix as above -Odom catheter; not indicated -Nutrition; clear liquid diet, nothing by mouth after midnight -Nicotine dependence; not required CODE STATUS-FULL CODE ADMISSION STATUS-patient will be admitted to inpatient status, expect at least a 2 night hospital stay for evaluation and management of problems as outlined above. At the time of this admission I do not reasonably expected evaluation and management of this problem will require more than a 96 hour hospital stay. DISPOSITION-anticipate discharge to home after the hospital stay. PRIMARY CARE PROVIDER-Dr. Dawkins
--- NOTE | 2019-03-11 13:53 | OR ---
DATE OF PROCEDURE: 03/10/2019 SURGEON: Kevin Diamond MD PREOPERATIVE DIAGNOSIS: Upper gastrointestinal bleeding. POSTOPERATIVE DIAGNOSES: 1. Upper gastrointestinal bleeding associated with a small hiatal hernia and ulcerative esophagitis (no active bleeding, but esophagitis is likely source of recent bleeding). 2. Nonbleeding esophageal varices (see photograph). 3. Diffuse gastritis. OPERATIVE PROCEDURE: Esophagogastroduodenoscopy with antral biopsies for CLOtest (esophagitis not biopsied to avoid re-bleeding). ANESTHESIA: IV sedation. INDICATION FOR PROCEDURE: A 43-year-old presenting with some hematemesis and with GI bleeding requiring transfusions. The patient has a history of alcohol abuse and plan is to proceed with upper GI endoscopy with biopsies as indicated. Potential risks including further bleeding and perforation were discussed and the patient wishes to proceed. DETAILS OF PROCEDURE: The patient was taken to the operating room and placed in a left lateral decubitus position. IV sedation was administered after which the upper GI endoscope was passed orally through the length of the esophagus and into the stomach with retroflexion view of the fundus, and thereafter through the pyloric channel into the proximal duodenum. Findings included a normal hypopharynx, larynx, and upper esophageal sphincter. Beginning in the mid esophageal body, the patient had some scattered esophageal varices. One of these was quite elongated and extended down toward the EG junction. The photographs of this large varix was obtained. The patient did not have any obvious bleeding or ulcerations/erosion over the varices. The patient did have a small hiatal hernia, perhaps 1 or 2 cm with some ulcerated esophagitis. This was covered with fibrinous exudate at this point and likely had been the source of bleeding. No blood or bleeding throughout the exam was however seen. The patient had more or less diffuse gastritis with the entire gastric mucosa being somewhat reddened and edematous, but without erosions or ulcers, and the pyloric channel and proximal duodenum were unremarkable. Biopsies were then obtained from the antrum and sent for CLOtest for H. pylori. Minimal bleeding from the biopsy site was seen and the procedure then concluded. We elected not to biopsy the esophagitis at this point to avoid issues of re- bleeding. At some point, perhaps in 4 to 6 weeks, it would be warranted to have a repeat endoscopy to obtain some histologic evaluation of the area of the esophagitis as well as to ascertain to what extent the esophagitis has healed. Kevin Diamond MD /[id number]
[2019-03-11] MEDS: Pantoprazole 40 MG Vial IVPUSH SCH (21:18)
[2019-03-12] MEDS: Gabapentin 400 MG Cap PO SCH (06:09)
[2019-03-12] MEDS: Pantoprazole 40 MG Vial IVPUSH SCH (08:38)
[2019-03-12] MEDS: Folic Acid 1 MG Tab PO SCH (08:39)
[2019-03-12] MEDS: Spironolactone 25 MG Tab PO SCH (08:39)
[2019-03-12] MEDS: Thiamine 100 MG Tab PO SCH (08:39)
[2019-03-12] MEDS: Potassium Chloride 20 MEQ Tab.ER PO SCH (08:39)
[2019-03-12] MEDS: Magnesium Oxide 400 MG Tab PO SCH (08:39)
[2019-03-12] MEDS: Sodium Chloride 0.9% 10 ML Syringe FLUSH PRN (08:43)
--- NOTE | 2019-03-12 10:12 | PCM.DCSUM1 ---
Discharge Summary - Hospital Course Brief History: Ms Robb is a 43-year-old woman who was admitted through the emergency department with hematemesis secondary to bleeding gastric erosions. - Discharge Data Discharge Date: 03/12/19 Discharge Disposition: Home, Self-Care 01 Preliminary Cause of *Q: Sepsis & Multi System Organ Failure Condition: Fair - Referral to Home Health Primary Care Physician: Hipolito Dawkins MD - Discharge Diagnosis/Problem(s) (1) Gastric erosions SNOMED Code(s): 404208669 ICD Code: K25.9 - GASTRIC ULCER, UNSP ACUTE OR CHRONIC, W/O HEMOR OR PERF Status: Acute Current Visit: Yes (2) Gastritis SNOMED Code(s): 0557298 ICD Code: K29.70 - GASTRITIS, UNSPECIFIED, WITHOUT BLEEDING Status: Acute Current Visit: Yes (3) Esophagitis SNOMED Code(s): 44668620 ICD Code: K20.9 - ESOPHAGITIS, UNSPECIFIED Status: Acute Current Visit: Yes (4) Esophageal varices determined by endoscopy SNOMED Code(s): 76174022, 533942516 ICD Code: I85.00 - ESOPHAGEAL VARICES WITHOUT BLEEDING Status: Acute Current Visit: Yes (5) Acute blood loss anemia SNOMED Code(s): 940546816 ICD Code: D62 - ACUTE POSTHEMORRHAGIC ANEMIA Status: Acute Current Visit : Yes (6) Cirrhosis of liver SNOMED Code(s): 90176565 ICD Code: K74.60 - UNSPECIFIED CIRRHOSIS OF LIVER Status: Acute Current Visit: No (7) Chronic alcohol abuse SNOMED Code(s): 027194401 ICD Code: F10.10 - ALCOHOL ABUSE, UNCOMPLICATED Status: Chronic Current Visit: No (8) Alcoholic hepatitis SNOMED Code(s): 658535685 ICD Code: K70.10 - ALCOHOLIC HEPATITIS WITHOUT ASCITES Status: Acute Current Visit: Yes - Patient Summary/Data Consults: Consultations 03/09/19 13:30 Consult to Physician [CONS] Routine Consulting Provider: Kevin Diamond Call Completed to Consulting Physician: Yes Reason for Consult: Upper GI bleed, EGD in a.. Hospital Course: Ms. Ayala is a 43-year-old woman who was admitted through the emergency department with hematemesis and probable underlying upper GI bleed. She does have intermittent difficulty with nausea and vomiting, this morning was the first episode of hematemesis that she is ever experienced. She has a known in long-standing history of alcohol abuse and is felt to be developing hepatic cirrhosis. This morning had 3-4 episodes of hematemesis one of which occurred in the emergency department. Hemoglobin is within normal range at 12 and she is hemodynamically stable. She denies any previous history of upper GI bleed or ulcer disease. On admission she was given IV fluids for hydration and serial hemoglobin levels were monitored. Later on the evening of admission hemoglobin dropped to 7.9 with evidence of ongoing bleeding, so she was transfused 1 unit of red blood cells. She continued to pass intermittent clots but hemoglobin following transfusion remained stable in the range of 9.0-9.5. She was placed on continuous infusion of Protonix as well as octreotide. Liver enzymes were noted to be elevated and she was felt to have a component of acute alcoholic hepatitis as well as underlying hepatic cirrhosis. Bilirubin level had improved but not normalized by the time of discharge. On the morning after admission she was seen and evaluated by Dr. Diamond, EGD was performed which showed evidence of esophagitis, esophageal varices, gastritis, and gastric erosions which were felt to represent probable source of bleeding. Hemoglobin level remains stable through the rest of her hospital stay. Diet was advanced and by the time of discharge she was tolerating a soft low residue diet. She will be transitioned to Protonix 40 mg by mouth twice daily for 2 weeks and then once daily thereafter. Follow-up appointment will be scheduled with her primary care provider within one week, hemoglobin level will be obtained at the time of follow-up appointment. Activity will be as tolerated and she will remain on a soft diet over the next several days. She is strongly encouraged to avoid all further alcohol use. We discussed arranging assessment overall quality abuse and treatment which she refused. - Patient Instructions Diet: GI Soft/Low Residue/Low Fiber Activity: As Tolerated Other/Special Instructions: Please schedule follow-up appointment with Dr. Dawkins within one week. Hemoglobin level should be obtained at the time of follow-up appointment. - Discharge Plan *PRESCRIPTION DRUG MONITORING PROGRAM REVIEWED*: Not Applicable *COPY OF PRESCRIPTION DRUG MONITORING REPORT IN PATIENT EVONNE: Not Applicable Prescriptions/Med Rec: Pantoprazole Sodium [Protonix] 40 mg PO BID #30 tablet. Home Medications: Home Meds Omeprazole 20 mg PO DAILY 12/18/17 [History] Potassium Chloride 20 meq PO TID 08/21/18 [History] Spironolactone [Aldactone] 12.5 mg PO DAILY 08/21/18 [History] Loperamide [Imodium] 2 mg PO Q6H 01/01/19 [History] Magnesium Oxide [Magnesium] 400 mg PO DAILY 01/01/19 [History] Multivitamin [Multi-Vitamin Daily] 1 each PO DAILY 01/01/19 [History] Pantoprazole Sodium [Protonix] 40 mg PO BID #30 tablet. 03/12/19 [Rx] Referrals: Hipolito Dawkins MD [Primary Care Provider] - - Discharge Summary/Plan Comment DC Time >30 min.: No - Patient Data Vitals - Most Recent: Last Vital Signs Temp 97.9 F 03/12/19 08:35 Pulse 97 03/12/19 08:35 Resp 14 03/12/19 08:35 BP 116/79 03/12/19 08:35 Pulse Ox 97 03/12/19 08:35 Weight - Most Recent: 158 lb 8 oz I&O - Last 24 hours: Intake & Output 03/11/19 03/12/19 03/12/19 22:59 06:59 14:59 Intake Total 942 1400 Balance 942 1400 Lab Results - Last 24 hrs: Laboratory Results - last 24 hr 03/11/19 03/11/19 03/12/19 Range/Units 09:37 17:00 05:23 WBC 5.3 (4.5-11.0) K/uL RBC 2.58 L (3.30-5.50) M/uL Hgb 9.0 L 9.0 L (12.0-15.0) g/dL Hct 27.6 L (36.0-48.0) % MCV 107 H (80-98) fL MCH 35 H (27-31) pg MCHC 33 (32-36) % Plt Count 124 L (150-400) K/uL Neut % (Auto) 66 (36-66) % Lymph % (Auto) 23 L (24-44) % [place] % (Auto) 8 H (2-6) % Eos % (Auto) 3 (2-4) % Baso % (Auto) 1 (0-1) % Sodium (140-148) mmol/L Potassium (3.6-5.2) mmol/L Chloride (100-108) mmol/L Carbon Dioxide (21-32) mmol/L Anion Gap (5.0-14.0) mmol/L BUN (7-18) mg/dL Creatinine (0.6-1.0) mg/dL Est Cr Clr Drug Dosing 133.24 mL/min Estimated GFR (MDRD) (>60) Glucose (74-106) mg/dL Calcium (8.5-10.1) mg/dL Total Bilirubin 2.3 H D (0.2-1.0) mg/dL AST 194 H D (15-37) U/L ALT 51 D (12-78) U/L Alkaline Phosphatase 187 H D (46-116) U/L Total Protein 5.1 L (6.4-8.2) g/dL Albumin 2.0 L (3.4-5.0) g/dL Globulin 3.1 (2.3-3.5) g/dL Albumin/Globulin Ratio 0.7 L (1.2-2.2) 03/12/19 Range/Units 05:23 WBC (4.5-11.0) K/uL RBC (3.30-5.50) M/uL Hgb (12.0-15.0) g/dL Hct (36.0-48.0) % MCV (80-98) fL MCH (27-31) pg MCHC (32-36) % Plt Count (150-400) K/uL Neut % (Auto) (36-66) % Lymph % (Auto) (24-44) % [place] % (Auto) (2-6) % Eos % (Auto) (2-4) % Baso % (Auto) (0-1) % Sodium 140 (140-148) mmol/L Potassium 4.3 (3.6-5.2) mmol/L Chloride 106 (100-108) mmol/L Carbon Dioxide 26 (21-32) mmol/L Anion Gap 7.7 (5.0-14.0) mmol/L BUN 2 L D (7-18) mg/dL Creatinine 0.5 L (0.6-1.0) mg/dL Est Cr Clr Drug Dosing 133.24 mL/min Estimated GFR (MDRD) > 60 (>60) Glucose 107 H (74-106) mg/dL Calcium 7.9 L (8.5-10.1) mg/dL Total Bilirubin 1.7 H (0.2-1.0) mg/dL AST 270 H (15-37) U/L ALT 86 H (12-78) U/L Alkaline Phosphatase 226 H (46-116) U/L Total Protein 5.4 L (6.4-8.2) g/dL Albumin 2.1 L (3.4-5.0) g/dL Globulin 3.3 (2.3-3.5) g/dL Albumin/Globulin Ratio 0.6 L (1.2-2.2) TIMOTHY Results - Last 24 hrs: Microbiology 03/10/19 12:14 CLOtest - Final Stomach NEGATIVE CLOTEST REFERENCE RANGE: NEGATIVE 03/09/19 11:19 Urine Culture - Final Urine, Bladder MIXED GILMER DAY 2 Med Orders - Current: Current Medications Folic Acid (Folic Acid) 1 mg PO DAILY [facility] Last Admin: 03/12/19 08:39 Dose: 1 mg Gabapentin (Neurontin) 400 mg PO Q8H [facility] Stop: 03/13/19 06:01 Last Admin: 03/12/19 06:09 Dose: 400 mg Lorazepam (Ativan) 0 mg PO ASDIRECTED PRN; Protocol PRN Reason: Withdrawal Symptoms Last Admin: 03/10/19 11:31 Dose: 1 mg Lorazepam (Ativan) 0 mg IV ASDIRECTED PRN; Protocol PRN Reason: Withdrawal Symptoms Last Admin: 03/10/19 11:45 Dose: 1 mg Magnesium Oxide (Magnesium Oxide) 400 mg PO DAILY [facility] Last Admin: 03/12/19 08:39 Dose: 400 mg Ondansetron HCl (Zofran) 4 mg IV Q4H PRN PRN Reason: Nausea/Vomiting Last Admin: 03/09/19 20:43 Dose: 4 mg Pantoprazole Sodium (Protonix Iv) 40 mg IVPUSH Q12H [facility] Last Admin: 03/12/19 08:38 Dose: 40 mg Potassium Chloride (Klor-Con M20) 20 meq PO TID [facility] Last Admin: 03/12/19 08:39 Dose: 20 meq Sodium Chloride (Saline Flush) 10 ml FLUSH ASDIRECTED PRN PRN Reason: Keep Vein Open Last Admin: 03/12/19 08:43 Dose: 10 ml Spironolactone (Aldactone) 12.5 mg PO DAILY [facility] Last Admin: 03/12/19 08:39 Dose: 12.5 mg Thiamine HCl (Vitamin B-1) 100 mg PO DAILY [facility] Last Admin: 03/12/19 08:39 Dose: 100 mg Discontinued Medications Fentanyl (Sublimaze) Confirm Administered Dose 100 mcg .ROUTE .STK-MED ONE Stop: 03/10/19 08:23 Sodium Chloride (Normal Saline) 1,000 mls @ 999 mls/hr IV ASDIRECTED [facility] Last Admin: 03/09/19 10:35 Dose: 999 mls/hr Sodium Chloride (Normal Saline) 1,000 mls @ 999 mls/hr IV ASDIRECTED [facility] Last Admin: 03/09/19 12:26 Dose: 999 mls/hr Multivitamins/Minerals 10 ml/Thiamine HCl 100 mg/ Folic Acid 1 mg/ Magnesium Sulfate 2 gm/ Sodium Chloride 1,015.2 mls @ 100 mls/hr IV ONETIME ONE Stop: 03/10/19 00:09 Last Admin: 03/09/19 14:19 Dose: 100 mls/hr Sodium Chloride (Normal Saline) 1,000 mls @ 125 mls/hr IV ASDIRECTED [facility] Last Admin: 03/10/19 02:10 Dose: 125 mls/hr Pantoprazole Sodium 80 mg/ (Sodium Chloride) 100 mls @ 10 mls/hr IV .Q10H [facility] Last Admin: 03/11/19 08:37 Dose: 10 mls/hr Octreotide Acetate 500 mcg/ (Sodium Chloride) 500 mls @ 50 mls/hr IV Q10H [facility] Last Admin: 03/11/19 08:36 Dose: 50 mcg/hr, 50 mls/hr Potassium Chloride 20 meq/Lidocaine HCl 2 ml/ Sodium Chloride 112 mls @ 56 mls/ hr IV Q2H [facility] Stop: 03/09/19 22:29 Last Admin: 03/09/19 20:27 Dose: 56 mls/hr Magnesium Sulfate 2 gm/ Premix 50 mls @ 25 mls/hr IV ONETIME ONE Stop: 03/10/19 11:59 Last Admin: 03/10/19 11:47 Dose: 25 mls/hr Lorazepam (Ativan) 0.5 mg IVPUSH ONETIME ONE Stop: 03/09/19 10:42 Last Admin: 03/09/19 10:47 Dose: 0.5 mg Midazolam HCl (Versed 1 Mg/Ml) Confirm Administered Dose 2 mg .ROUTE .STK-MED ONE Stop: 03/10/19 08:23 Ondansetron HCl (Zofran) 4 mg IVPUSH ONETIME ONE Stop: 03/09/19 10:29 Last Admin: 03/09/19 10:38 Dose: 4 mg Pantoprazole Sodium (Protonix Iv) 40 mg IVPUSH ONETIME ONE Stop: 03/09/19 10:37 Last Admin: 03/09/19 10:41 Dose: 40 mg Pantoprazole Sodium (Protonix Iv) 40 mg IVPUSH ONETIME ONE Stop: 03/09/19 17:31 Last Admin: 03/09/19 17:52 Dose: 40 mg Propofol (Diprivan 20 Ml) Confirm Administered Dose 200 mg .ROUTE .STK-MED ONE Stop: 03/10/19 08:23 - Exam General: Reports: Alert, Oriented, Cooperative, No Acute Distress Lungs: Reports: Clear to Auscultation, Normal Respiratory Effort Cardiovascular: Reports: Regular Rate, Regular Rhythm, No Murmurs GI/Abdominal Exam: Soft, Non-Tender, No Organomegaly, No Distention Extremities: Non-Tender, No Pedal Edema *Q Meaningful Use (DIS) - VTE *Q VTE Pharmacological Contraindications *Q: Active Hemorrhage
== END 2019-03-12 10:47 | disposition home or self-care (01) | DRG 378 ==
LOC: JP.ED 09:43 → JP.ICU 13:08
PROVIDERS: ADMIT Hospitalist; ATTEND Hospitalist
PROC: 0DB78ZZ Excision of Stomach, Pylorus, Via Natural or Artificial Opening Endoscopic (ICD-10-PCS; principal; 2019-03-10)
PROC: 30233N1 Transfusion of Nonautologous Red Blood Cells into Peripheral Vein, Percutaneous Approach (ICD-10-PCS; 2019-03-10)
DX: K29.01 Acute gastritis with bleeding (principal); F10.239 Alcohol dependence with withdrawal, unspecified; D62 Acute posthemorrhagic anemia; I85.10 Secondary esophageal varices without bleeding; K22.11 Ulcer of esophagus with bleeding; K70.30 Alcoholic cirrhosis of liver without ascites; K21.0 Gastro-esophageal reflux disease with esophagitis; K70.10 Alcoholic hepatitis without ascites; I10 Essential (primary) hypertension; K44.9 Diaphragmatic hernia without obstruction or gangrene; H54.7 Unspecified visual loss; F17.210 Nicotine dependence, cigarettes, uncomplicated; Z87.440 Personal history of urinary (tract) infections; Z98.51 Tubal ligation status; Z88.2 Allergy status to sulfonamides; Z88.1 Allergy status to other antibiotic agents; Z79.899 Other long term (current) drug therapy
CPT/HCPCS: 36415; 36430; 80053; 81001; 83690; 83735; 85018; 85025; 85610; 85730; 86850; 86900; 86901; 86920; 86922; 87081; 87086; 96361; 96374; 96375; 99284; 99284-25; A9270-GY; C9113; G0480; J2001; J2060; J2250; J2354; J2405; J2704; J3010; J3411; J3475; J3480; J3490; J7030; J7040; P9016

== ENCOUNTER 2019-05-06 12:47 | Inpatient (IN) | payer MEDICAID ==
[2019-05-06] MEDS ORDERED: Sodium Chloride 0.9% 10 ML Syringe FLUSH PRN ×2 (13:28→16:26)
[2019-05-06] MEDS ORDERED: Lactated Ringers 1,000 ML IV SCH (13:30)
[2019-05-06] MEDS ORDERED: Octreotide 100 MCG/ML SDV IVPUSH ONE (13:32)
[2019-05-06] MEDS ORDERED: Ondansetron 4 MG/2 ML SDV IVPUSH ONE (13:32)
--- NOTE | 2019-05-06 13:39 | EDM.PDOC ---
ED HPI GENERAL MEDICAL PROBLEM - General Chief Complaint: Gastrointestinal Problem Stated Complaint: VOMITTING BLOOD AND STOMACH SWELLING Time Seen by Provider: 05/06/19 13:23 Source of Information: Reports: Patient, Family, Old Records, RN Notes Reviewed History Limitations: Reports: No Limitations - History of Present Illness INITIAL COMMENTS - FREE TEXT/NARRATIVE: 43-year-old presents emergency department today complaint of vomiting bright red blood she does have a extensive history of alcohol abuse and dependence has had bleeding varices in the past. Her biggest complaint today is her abdomen is significantly distended to the point where she is short of breath cannot lay on her back it has been developing over the last 2 weeks Abdomen Pain Score (Numeric/FACES): 10 - Related Data Allergies Allergy/AdvReac Type Severity Reaction Status Date / Time sulfamethoxazole Allergy Itching Verified 05/06/19 13:16 [From Bactrim] trimethoprim [From Bactrim] Allergy Itching Verified 05/06/19 13:16 Home Meds: Home Meds Potassium Chloride 20 meq PO TID 08/21/18 [History] Spironolactone [Aldactone] 12.5 mg PO DAILY 08/21/18 [History] Magnesium Oxide [Magnesium] 400 mg PO DAILY 01/01/19 [History] Multivitamin [Multi-Vitamin Daily] 1 each PO DAILY 01/01/19 [History] Pantoprazole Sodium [Protonix] 40 mg PO DAILY 05/06/19 [History] Past Medical History HEENT History: Reports: Impaired Vision Cardiovascular History: Reports: Hypertension Gastrointestinal History: Reports: Cirrhosis, GERD 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, Recurrent 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: Musculoskeletal History: Reports: Fracture Psychiatric History: Reports: Addiction, Bipolar Hematologic History: Reports: Blood Transfusion(s) Other Dermatologic History: tattoos - Infectious Disease History Infectious Disease History: Reports: None - Past Surgical History Female Surgical History: Reports: Tubal Ligation Social & Family History - Family History Cardiac: Reports: Bypass, Hypertension, [place], Pacemaker Psychiatric: Reports: Bipolar, Schizophrenia Endocrine/Metabolic: Reports: Diabetes, type II Oncologic: Reports: Colon - Tobacco Use Smoking Status *Q: Light Tobacco Smoker Years of Tobacco use: 30 Packs/Tins Daily: 0.2 - Caffeine Use Caffeine Use: Reports: None - Alcohol Use Alcohol Use History: Yes Days Per Week of Alcohol Use: 7 Number of Drinks Per Day: 2 Total Drinks Per Week: 14 - Recreational Drug Use Recreational Drug Use: No ED ROS GENERAL - Review of Systems Review Of Systems: See Below Constitutional: Reports: No Symptoms HEENT: Reports: No Symptoms Respiratory: Reports: Shortness of Breath Cardiovascular: Reports: No Symptoms GI/Abdominal: Reports: Distension, Hematemesis, Nausea, Vomiting : Reports: No Symptoms Musculoskeletal: Reports: No Symptoms ED EXAM, GI/ABD - Physical Exam Exam: See Below Exam Limited By: No Limitations General Appearance: Alert, WD/WN, No Apparent Distress Respiratory/Chest: No Respiratory Distress, Lungs Clear, Normal Breath Sounds, No Accessory Muscle Use, Chest Non-Tender Cardiovascular: Regular Rate, Rhythm, No Murmur GI/Abdominal Exam: Distended (Markedly distended and firm) Course - Vital Signs Last Recorded V/S: Last Vital Signs Temp 98.2 F 05/06/19 13:15 Pulse 84 05/06/19 15:15 Resp 20 05/06/19 13:52 BP 139/110 H 05/06/19 15:15 Pulse Ox 97 05/06/19 13:52 - Orders/Labs/Meds Orders: Active Orders 24 hr Category Date Time Status Patient Status Manage Transfer [TRANSFER] Routine ADT 05/06/19 15:15 Active Peripheral IV Care [RC] . DIRECTED Care 05/06/19 13:28 Active US Guidance Paracentesis NC [US] Stat Exams 05/06/19 13:54 Taken Lactated Ringers [Ringers, Lactated] 1,000 ml Med 05/06/19 13:30 Active IV ASDIRECTED Octreotide [SandoSTATIN] 500 mcg Med 05/06/19 14:00 Active Sodium Chloride 0.9% [Normal Saline] 497.5 ml IV Q10H Pantoprazole [ProTONIX IV] 80 mg Med 05/06/19 15:30 Active Sodium Chloride 0.9% [Normal Saline] 100 ml IV .BOLUS Sodium Chloride 0.9% [Normal Saline] 100 ml Med 05/06/19 16:00 Active Pantoprazole [ProTONIX IV] 80 mg IV 10 mls/hr Sodium Chloride 0.9% [Saline Flush] Med 05/06/19 13:28 Active 10 ml FLUSH ASDIRECTED PRN Peripheral IV Insertion Adult [OM.PC] Urgent Oth 05/06/19 13:28 Ordered Resuscitation Status Routine Resus Stat 05/06/19 15:18 Ordered Medication Orders Lactated Ringer's (Ringers, Lactated) 1,000 mls @ 125 mls/hr IV ASDIRECTED KAREN Last Admin: 05/06/19 14:22 Dose: 125 mls/hr Octreotide Acetate 500 mcg/ (Sodium Chloride) 500 mls @ 50 mls/hr IV Q10H KAREN Last Admin: 05/06/19 14:22 Dose: 50 mcg/hr, 50 mls/hr Pantoprazole Sodium 80 mg/ (Sodium Chloride) 100 mls @ 200 mls/hr IV .BOLUS ONE Stop: 05/06/19 15:59 Pantoprazole Sodium 80 mg/ (Sodium Chloride) 100 mls @ 10 mls/hr IV .Q10H KAREN Sodium Chloride (Saline Flush) 10 ml FLUSH ASDIRECTED PRN PRN Reason: Keep Vein Open Last Admin: 05/06/19 14:24 Dose: 10 ml Labs: Laboratory Tests 05/06/19 05/06/19 05/06/19 Range/Units 13:37 13:49 13:49 WBC 11.2 H (4.5-11.0) K/uL RBC 3.02 L (3.30-5.50) M/uL Hgb 9.6 L (12.0-15.0) g/dL Hct 30.5 L (36.0-48.0) % MCV 101 H (80-98) fL MCH 32 H (27-31) pg MCHC 32 (32-36) % Plt Count 262 (150-400) K/uL Neut % (Auto) 73 H (36-66) % Lymph % (Auto) 14 L (24-44) % [place] % (Auto) 12 H (2-6) % Eos % (Auto) 1 L (2-4) % Baso % (Auto) 0 (0-1) % PT 12.8 H (9.5-12.0) sec INR 1.20 (0.80-1.20) APTT 26.8 L (27.0-36.0) sec Sodium (140-148) mmol/L Potassium (3.6-5.2) mmol/L Chloride (100-108) mmol/L Carbon Dioxide (21-32) mmol/L Anion Gap (5.0-14.0) mmol/L BUN (7-18) mg/dL Creatinine (0.6-1.0) mg/dL Est Cr Clr Drug Dosing mL/min Estimated GFR (MDRD) (>60) Glucose (74-106) mg/dL Lactic Acid (0.4-2.0) mmol/L Calcium (8.5-10.1) mg/dL Total Bilirubin (0.2-1.0) mg/dL AST (15-37) U/L ALT (12-78) U/L Alkaline Phosphatase (46-116) U/L Ammonia (11-32) mmol/L Total Protein (6.4-8.2) g/dL Albumin (3.4-5.0) g/dL Globulin (2.3-3.5) g/dL Albumin/Globulin Ratio (1.2-2.2) Ethyl Alcohol 170 mg/dL Blood Type Gel Antibody Screen 05/06/19 05/06/19 05/06/19 Range/Units 13:49 13:49 13:49 WBC (4.5-11.0) K/uL RBC (3.30-5.50) M/uL Hgb (12.0-15.0) g/dL Hct (36.0-48.0) % MCV (80-98) fL MCH (27-31) pg MCHC (32-36) % Plt Count (150-400) K/uL Neut % (Auto) (36-66) % Lymph % (Auto) (24-44) % [place] % (Auto) (2-6) % Eos % (Auto) (2-4) % Baso % (Auto) (0-1) % PT (9.5-12.0) sec INR (0.80-1.20) APTT (27.0-36.0) sec Sodium 143 (140-148) mmol/L Potassium 3.0 L (3.6-5.2) mmol/L Chloride 104 (100-108) mmol/L Carbon Dioxide 26 (21-32) mmol/L Anion Gap 16.0 H (5.0-14.0) mmol/L BUN 9 D (7-18) mg/dL Creatinine 0.7 (0.6-1.0) mg/dL Est Cr Clr Drug Dosing 95.17 mL/min Estimated GFR (MDRD) > 60 (>60) Glucose 119 H (74-106) mg/dL Lactic Acid (0.4-2.0) mmol/L Calcium 8.1 L (8.5-10.1) mg/dL Total Bilirubin 0.8 D (0.2-1.0) mg/dL AST 128 H (15-37) U/L ALT 43 (12-78) U/L Alkaline Phosphatase 307 H (46-116) U/L Ammonia 14 (11-32) mmol/L Total Protein 7.0 (6.4-8.2) g/dL Albumin 2.3 L (3.4-5.0) g/dL Globulin 4.7 H (2.3-3.5) g/dL Albumin/Globulin Ratio 0.5 L (1.2-2.2) Ethyl Alcohol mg/dL Blood Type A POSITIVE Gel Antibody Screen Negative 05/06/19 Range/Units 13:49 WBC (4.5-11.0) K/uL RBC (3.30-5.50) M/uL Hgb (12.0-15.0) g/dL Hct (36.0-48.0) % MCV (80-98) fL MCH (27-31) pg MCHC (32-36) % Plt Count (150-400) K/uL Neut % (Auto) (36-66) % Lymph % (Auto) (24-44) % [place] % (Auto) (2-6) % Eos % (Auto) (2-4) % Baso % (Auto) (0-1) % PT (9.5-12.0) sec INR (0.80-1.20) APTT (27.0-36.0) sec Sodium (140-148) mmol/L Potassium (3.6-5.2) mmol/L Chloride (100-108) mmol/L Carbon Dioxide (21-32) mmol/L Anion Gap (5.0-14.0) mmol/L BUN (7-18) mg/dL Creatinine (0.6-1.0) mg/dL Est Cr Clr Drug Dosing mL/min Estimated GFR (MDRD) (>60) Glucose (74-106) mg/dL Lactic Acid 3.9 H (0.4-2.0) mmol/L Calcium (8.5-10.1) mg/dL Total Bilirubin (0.2-1.0) mg/dL AST (15-37) U/L ALT (12-78) U/L Alkaline Phosphatase (46-116) U/L Ammonia (11-32) mmol/L Total Protein (6.4-8.2) g/dL Albumin (3.4-5.0) g/dL Globulin (2.3-3.5) g/dL Albumin/Globulin Ratio (1.2-2.2) Ethyl Alcohol mg/dL Blood Type Gel Antibody Screen Meds: Medications Generic Name Dose Route Start Last Admin Trade Name Freq PRN Reason Stop Dose Admin Lactated Ringer's 1,000 mls @ 125 mls/hr 05/06/19 13:30 05/06/19 14:22 Ringers, Lactated IV 125 mls/hr ASDIRECTED KAREN Administration Octreotide Acetate 500 mcg/ 500 mls @ 50 mls/hr 05/06/19 14:00 05/06/19 14:22 Sodium Chloride IV 50 mcg/hr Q10H KAREN 50 mls/hr Administration 50 MCG/HR Pantoprazole Sodium 80 mg/ 100 mls @ 200 mls/hr 05/06/19 15:30 Sodium Chloride IV 05/06/19 15:59 .BOLUS ONE Pantoprazole Sodium 80 mg/ 100 mls @ 10 mls/hr 05/06/19 16:00 Sodium Chloride IV .Q10H KAREN Sodium Chloride 10 ml 05/06/19 13:28 05/06/19 14:24 Saline Flush FLUSH 10 ml ASDIRECTED PRN Administration Keep Vein Open Discontinued Medications Generic Name Dose Route Start Last Admin Trade Name Freq PRN Reason Stop Dose Admin Octreotide Acetate 50 mcg 05/06/19 13:32 05/06/19 14:22 Sandostatin IVPUSH 05/06/19 13:33 50 mcg ONETIME ONE Administration Ondansetron HCl 4 mg 05/06/19 13:32 Zofran IVPUSH 05/06/19 13:33 ONETIME ONE Departure - Departure Time of Disposition: 15:26 Disposition: Admitted As Inpatient 68 Condition: Poor Clinical Impression: Acute blood loss anemia, Upper GI bleeding Alcoholic hepatitis Qualifiers: Ascites presence: with ascites Qualified Code(s): K70.11 - Alcoholic hepatitis with ascites - Discharge Information Referrals: Hipolito Dawkins MD [Primary Care Provider] - Forms: ED Department Discharge Sepsis Event Note - Evaluation Sepsis Screening Result: No Definite Risk - Focused Exam Vital Signs: Vital Signs Temp Pulse Resp BP Pulse Ox 05/06/19 15:15 84 139/110 H 05/06/19 13:52 125 H 20 137/86 97 05/06/19 13:15 98.2 F 130 H 16 157/90 H 100 05/06/19 12:58 98.2 F 130 H 16 157/90 H 100 Date Exam was Performed: 05/06/19 Time Exam was Performed: 15:24 - My Orders Last 24 Hours: My Active Orders 05/06/19 13:28 Peripheral IV Care [RC] . DIRECTED Sodium Chloride 0.9% [Saline Flush] 10 ml FLUSH ASDIRECTED PRN Peripheral IV Insertion Adult [OM.PC] Urgent 05/06/19 13:30 Lactated Ringers [Ringers, Lactated] 1,000 ml IV ASDIRECTED 05/06/19 13:54 US Guidance Paracentesis NC [US] Stat 05/06/19 14:00 Octreotide [SandoSTATIN] 500 mcg Sodium Chloride 0.9% [Normal Saline] 497.5 ml IV Q10H - Assessment/Plan Last 24 Hours: My Active Orders 05/06/19 13:28 Peripheral IV Care [RC] . DIRECTED Sodium Chloride 0.9% [Saline Flush] 10 ml FLUSH ASDIRECTED PRN Peripheral IV Insertion Adult [OM.PC] Urgent 05/06/19 13:30 Lactated Ringers [Ringers, Lactated] 1,000 ml IV ASDIRECTED 05/06/19 13:54 US Guidance Paracentesis NC [US] Stat 05/06/19 14:00 Octreotide [SandoSTATIN] 500 mcg Sodium Chloride 0.9% [Normal Saline] 497.5 ml IV Q10H Plan: Assessment Acuity = acute on chronic Site and laterality = abdominal ascites complicated in a patient with known history of alcohol abuse and dependence Etiology = secondary to EtOH probably Manifestations = dyspnea Location of injury = Home Lab values = hemoglobin 9.6 consistent with microchromic anemia potassium 3.0 consistent hypokalemia lactic acid elevated 3.9 consistent lactic acidosis AST elevated 128 consistent with liver enzymes albumin low 2.3 consistent hypoalbuminemia alcohol 170, ultrasound was used to alexx the deepest pocket in the abdomen paracentesis was performed by general surgery fluid analysis was sent for evaluation Plan Call discussed case with hospitalist on-call at 1515 can agreed to come evaluate patient emergency department for admission This note was dictated using [employer] voice recognition software please call with any questions on syntax or grammar.
[2019-05-06] MEDS ORDERED: Octreotide 500 MCG in Sodium Chloride 0.9% 497.5 ML IV SCH ×2 (13:45→14:00)
[2019-05-06] MEDS ORDERED: Pantoprazole 80 MG in Sodium Chloride 0.9% 100 ML IV ONE (15:30)
[2019-05-06] MEDS ORDERED: Pantoprazole 40 MG Vial ONE (15:41)
--- NOTE | 2019-05-06 15:55 | PCM.HP.2 ---
H&P History of Present Illness - General Date of Service: 05/06/19 Admit Problem/Dx: Admission Diagnosis/Problem Admission Diagnosis/Problem Bleeding Source of Information: Patient, Old Records, Provider, RN Notes Reviewed History Limitations: Reports: No Limitations - History of Present Illness Initial Comments - Free Text/Narative: Ms. Ayala 43-year-old woman who was admitted through the emergency department with hematemesis secondary to upper GI bleed as well as hepatic cirrhosis with large volume ascites. She has a long-standing history of alcohol abuse and was hospitalized at this facility proximally 2 months ago with upper GI bleed and alcoholic hepatitis. Unfortunately she is continued to drink alcohol on a regular basis. This morning she noted an episode of hematemesis. She is also had difficulty with progressive increase in abdominal girth. While in the emergency department she was seen by Dr. Phillips underwent a large volume paracentesis. Abdomen Pain Score (Numeric/FACES): 10 - Related Data Allergies/Adverse Reactions: Allergies Allergy/AdvReac Type Severity Reaction Status Date / Time sulfamethoxazole Allergy Itching Verified 05/06/19 13:16 [From Bactrim] trimethoprim [From Bactrim] Allergy Itching Verified 05/06/19 13:16 Home Medications: Home Meds Potassium Chloride 20 meq PO TID 08/21/18 [History] Spironolactone [Aldactone] 12.5 mg PO DAILY 08/21/18 [History] Magnesium Oxide [Magnesium] 400 mg PO DAILY 01/01/19 [History] Multivitamin [Multi-Vitamin Daily] 1 each PO DAILY 01/01/19 [History] Pantoprazole Sodium [Protonix] 40 mg PO DAILY 05/06/19 [History] Past Medical History HEENT History: Reports: Impaired Vision Cardiovascular History: Reports: Hypertension Gastrointestinal History: Reports: Cirrhosis, GERD 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, Recurrent 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: Musculoskeletal History: Reports: Fracture Psychiatric History: Reports: Addiction, Bipolar Hematologic History: Reports: Blood Transfusion(s) Other Dermatologic History: tattoos - Infectious Disease History Infectious Disease History: Reports: None - Past Surgical History Female Surgical History: Reports: Tubal Ligation Social & Family History - Family History Cardiac: Reports: Bypass, Hypertension, [place], Pacemaker Psychiatric: Reports: Bipolar, Schizophrenia Endocrine/Metabolic: Reports: Diabetes, type II Oncologic: Reports: Colon - Tobacco Use Smoking Status *Q: Light Tobacco Smoker Years of Tobacco use: 30 Packs/Tins Daily: 0.2 - Caffeine Use Caffeine Use: Reports: None - Alcohol Use Days Per Week of Alcohol Use: 7 Number of Drinks Per Day: 2 Total Drinks Per Week: 14 - Recreational Drug Use Recreational Drug Use: No H&P Review of Systems - Review of Systems: Review Of Systems: See Below General: Reports: Weakness, Decreased Appetite. Denies: Fever, Chills HEENT: Reports: No Symptoms Pulmonary: Reports: No Symptoms Cardiovascular: Reports: No Symptoms Gastrointestinal: Reports: Abdominal Pain, Distension, Hematemesis. Denies: Constipation, Diarrhea, Hematochezia, Melena, Mucous in Stool, Nausea, Vomiting 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: Reports: No Symptoms Musculoskeletal: Reports: No Symptoms Skin: Reports: No Symptoms Psychiatric: Reports: No Symptoms Neurological: Reports: No Symptoms Hematologic/Lymphatic: Reports: No Symptoms Immunologic: Reports: No Symptoms Exam - Exam Exam: See Below - Vital Signs Vital Signs: Last Vital Signs Temp 98.2 F 05/06/19 13:15 Pulse 115 H 05/06/19 15:54 Resp 20 05/06/19 13:52 BP 125/78 05/06/19 15:54 Pulse Ox 94 L 05/06/19 15:54 Weight: 164 lb 0.383 oz - Exam General: Alert, Oriented, Cooperative, Mild Distress HEENT: Conjunctiva Clear, Hearing Intact, Mucosa Moist & [place], Normal Nasal Septum, Posterior Pharynx Clear, Pupils Equal Neck: Supple, Trachea Midline, +2 Carotid Pulse wo Bruit Lungs: Clear to Auscultation, Normal Respiratory Effort Cardiovascular: Regular Rate, Regular Rhythm, Normal S1, Normal S2 GI/Abdominal Exam: Soft, No Organomegaly, Distended, Tender. No: Guarding, Rigid, Rebound Back Exam: Normal Inspection, Full Range of Motion Extremities: Non-Tender, No Pedal Edema Skin: Warm, Dry, Intact Neurological: Cranial Nerves Intact, Strength Equal Bilateral, Normal Speech, Normal Tone, Sensation Intact. No: Focal Deficit Neuro Extensive - Mental Status: Alert, Oriented x3, Normal Mood/Affect, Normal Cognition, Memory Intact - Patient Data Lab Results Last 24 hrs: Laboratory Results - last 24 hr 05/06/19 05/06/19 05/06/19 Range/Units 13:37 13:49 13:49 WBC 11.2 H (4.5-11.0) K/uL RBC 3.02 L (3.30-5.50) M/uL Hgb 9.6 L (12.0-15.0) g/dL Hct 30.5 L (36.0-48.0) % MCV 101 H (80-98) fL MCH 32 H (27-31) pg MCHC 32 (32-36) % Plt Count 262 (150-400) K/uL Neut % (Auto) 73 H (36-66) % Lymph % (Auto) 14 L (24-44) % Kay % (Auto) 12 H (2-6) % Eos % (Auto) 1 L (2-4) % Baso % (Auto) 0 (0-1) % PT 12.8 H (9.5-12.0) sec INR 1.20 (0.80-1.20) APTT 26.8 L (27.0-36.0) sec Sodium (140-148) mmol/L Potassium (3.6-5.2) mmol/L Chloride (100-108) mmol/L Carbon Dioxide (21-32) mmol/L Anion Gap (5.0-14.0) mmol/L BUN (7-18) mg/dL Creatinine (0.6-1.0) mg/dL Est Cr Clr Drug Dosing mL/min Estimated GFR (MDRD) (>60) Glucose (74-106) mg/dL Lactic Acid (0.4-2.0) mmol/L Calcium (8.5-10.1) mg/dL Total Bilirubin (0.2-1.0) mg/dL AST (15-37) U/L ALT (12-78) U/L Alkaline Phosphatase (46-116) U/L Ammonia (11-32) mmol/L Total Protein (6.4-8.2) g/dL Albumin (3.4-5.0) g/dL Globulin (2.3-3.5) g/dL Albumin/Globulin Ratio (1.2-2.2) Ethyl Alcohol 170 mg/dL Blood Type Gel Antibody Screen 05/06/19 05/06/19 05/06/19 Range/Units 13:49 13:49 13:49 WBC (4.5-11.0) K/uL RBC (3.30-5.50) M/uL Hgb (12.0-15.0) g/dL Hct (36.0-48.0) % MCV (80-98) fL MCH (27-31) pg MCHC (32-36) % Plt Count (150-400) K/uL Neut % (Auto) (36-66) % Lymph % (Auto) (24-44) % Kay % (Auto) (2-6) % Eos % (Auto) (2-4) % Baso % (Auto) (0-1) % PT (9.5-12.0) sec INR (0.80-1.20) APTT (27.0-36.0) sec Sodium 143 (140-148) mmol/L Potassium 3.0 L (3.6-5.2) mmol/L Chloride 104 (100-108) mmol/L Carbon Dioxide 26 (21-32) mmol/L Anion Gap 16.0 H (5.0-14.0) mmol/L BUN 9 D (7-18) mg/dL Creatinine 0.7 (0.6-1.0) mg/dL Est Cr Clr Drug Dosing 95.17 mL/min Estimated GFR (MDRD) > 60 (>60) Glucose 119 H (74-106) mg/dL Lactic Acid (0.4-2.0) mmol/L Calcium 8.1 L (8.5-10.1) mg/dL Total Bilirubin 0.8 D (0.2-1.0) mg/dL AST 128 H (15-37) U/L ALT 43 (12-78) U/L Alkaline Phosphatase 307 H (46-116) U/L Ammonia 14 (11-32) mmol/L Total Protein 7.0 (6.4-8.2) g/dL Albumin 2.3 L (3.4-5.0) g/dL Globulin 4.7 H (2.3-3.5) g/dL Albumin/Globulin Ratio 0.5 L (1.2-2.2) Ethyl Alcohol mg/dL Blood Type A POSITIVE Gel Antibody Screen Negative 05/06/19 Range/Units 13:49 WBC (4.5-11.0) K/uL RBC (3.30-5.50) M/uL Hgb (12.0-15.0) g/dL Hct (36.0-48.0) % MCV (80-98) fL MCH (27-31) pg MCHC (32-36) % Plt Count (150-400) K/uL Neut % (Auto) (36-66) % Lymph % (Auto) (24-44) % Kay % (Auto) (2-6) % Eos % (Auto) (2-4) % Baso % (Auto) (0-1) % PT (9.5-12.0) sec INR (0.80-1.20) APTT (27.0-36.0) sec Sodium (140-148) mmol/L Potassium (3.6-5.2) mmol/L Chloride (100-108) mmol/L Carbon Dioxide (21-32) mmol/L Anion Gap (5.0-14.0) mmol/L BUN (7-18) mg/dL Creatinine (0.6-1.0) mg/dL Est Cr Clr Drug Dosing mL/min Estimated GFR (MDRD) (>60) Glucose (74-106) mg/dL Lactic Acid 3.9 H (0.4-2.0) mmol/L Calcium (8.5-10.1) mg/dL Total Bilirubin (0.2-1.0) mg/dL AST (15-37) U/L ALT (12-78) U/L Alkaline Phosphatase (46-116) U/L Ammonia (11-32) mmol/L Total Protein (6.4-8.2) g/dL Albumin (3.4-5.0) g/dL Globulin (2.3-3.5) g/dL Albumin/Globulin Ratio (1.2-2.2) Ethyl Alcohol mg/dL Blood Type Gel Antibody Screen Result Diagrams: 05/06/19 17:00 05/06/19 13:49 Sepsis Event Note - Evaluation Sepsis Screening Result: No Definite Risk - Focused Exam Vital Signs: Vital Signs Temp Pulse Resp BP Pulse Ox 05/06/19 15:54 115 H 125/78 94 L 05/06/19 15:15 84 139/110 H 05/06/19 13:52 125 H 20 137/86 97 05/06/19 13:15 98.2 F 130 H 16 157/90 H 100 05/06/19 12:58 98.2 F 130 H 16 157/90 H 100 Date Exam was Performed: 05/06/19 Time Exam was Performed: 17:19 *Q Meaningful Use (ADM) - VTE *Q VTE Pharmacological Contraindications *Q: Active Hemorrhage - VTE Risk Assess *Q Each Risk Factor Represents 1 Point: Age 41 - 59 years, Obesity ( BMI > 25 kg/m2 ) Total Score 1 Point Risk Factors: 2 Each Risk Factor Represents 2 Points: None Total Score 2 Point Risk Factors: 0 Each Risk Factor Represents 3 Points: None Total Score 3 Point Risk Factors: 0 Each Risk Factor Represents 5 Points: None Total Score 5 Point Risk Factors: 0 Venous Thromboembolism Risk Factor Score *Q: 2 Problem List Initiated/Reviewed/Updated: Yes Orders Last 24hrs: Active Orders 24 hr Category Date Time Status Patient Status Manage Transfer [TRANSFER] Routine ADT 05/06/19 15:15 Active Peripheral IV Care [RC] . DIRECTED Care 05/06/19 13:28 Active US Guidance Paracentesis NC [US] Stat Exams 05/06/19 13:54 Taken ALBUMIN [CHEM] Routine Lab 05/06/19 15:24 Received AMYLASE,BODY FLUID [BF] Routine Lab 05/06/19 15:24 Received CELL COUNT,BODY FLUID [BF] Routine Lab 05/06/19 15:24 Received CULTURE BODY FLUID + SMEAR [RM] Routine Lab 05/06/19 15:24 Received GLUCOSE,BODY FLUID [BF] Routine Lab 05/06/19 15:24 Received HGB [HEMOGLOBIN] [HEME] Stat Lab 05/06/19 17:00 Ordered HGB [HEMOGLOBIN] [HEME] Stat Lab 05/06/19 23:00 Ordered LACTATE DEHYDROGENASE,BODY FL [BF] Routine Lab 05/06/19 15:24 Received PROTEIN,BODY FLUID [BF] Routine Lab 05/06/19 15:24 Received Lactated Ringers [Ringers, Lactated] 1,000 ml Med 05/06/19 13:30 Active IV ASDIRECTED Octreotide [SandoSTATIN] 500 mcg Med 05/06/19 14:00 Active Sodium Chloride 0.9% [Normal Saline] 497.5 ml IV Q10H Pantoprazole [ProTONIX IV] 80 mg Med 05/06/19 15:30 Active Sodium Chloride 0.9% [Normal Saline] 100 ml IV .BOLUS Sodium Chloride 0.9% [Normal Saline] 100 ml Med 05/06/19 16:00 Active Pantoprazole [ProTONIX IV] 80 mg IV 10 mls/hr Sodium Chloride 0.9% [Saline Flush] Med 05/06/19 13:28 Active 10 ml FLUSH ASDIRECTED PRN Peripheral IV Insertion Adult [OM.PC] Urgent Oth 05/06/19 13:28 Ordered Resuscitation Status Routine Resus Stat 05/06/19 15:18 Ordered Medication Orders Lactated Ringer's (Ringers, Lactated) 1,000 mls @ 125 mls/hr IV ASDIRECTED KAREN Last Admin: 05/06/19 14:22 Dose: 125 mls/hr Octreotide Acetate 500 mcg/ (Sodium Chloride) 500 mls @ 50 mls/hr IV Q10H KAREN Last Admin: 05/06/19 14:22 Dose: 50 mcg/hr, 50 mls/hr Pantoprazole Sodium 80 mg/ (Sodium Chloride) 100 mls @ 200 mls/hr IV .BOLUS ONE Stop: 05/06/19 15:59 Last Admin: 05/06/19 15:43 Dose: 200 mls/hr Pantoprazole Sodium 80 mg/ (Sodium Chloride) 100 mls @ 10 mls/hr IV .Q10H KAREN Sodium Chloride (Saline Flush) 10 ml FLUSH ASDIRECTED PRN PRN Reason: Keep Vein Open Last Admin: 05/06/19 14:24 Dose: 10 ml Assessment/Plan Comment:: UPPER GI BLEED-she has a history of esophageal reflux but no history of ulcer disease. EGD at the time of her last visit showed esophageal varices which were not bleeding, esophagitis with esophageal erosions and gastritis -NPO -Serial hemoglobin levels -Consult Dr. Guerrero for EGD in a.m. -Protonix continous infusion -Octreotide continuous infusion -Maintained 2 IV sites -IV fluids for hydration -2 units of blood on hold ALCOHOL WITHDRAWAL-history of long-standing use -Alcohol withdrawal protocol -Gabapentin 400 mg by mouth every 8 hours 4 days, then 200 mg every 8 hours 4 days HEPATIC CIRRHOSIS WITH ASCITES- s/p large volume paracentesis in the ED -Monitor daily liver tests -2 gm sodium diet when eating -consider fluid restriction -increase Spironolactone dose MAINTENANCE ISSUES -DVT prophylaxis; not indicated -GI prophylaxis; Protonix as above -Odom catheter; not indicated -Nutrition; nothing by mouth after midnight -Nicotine dependence; not required CODE STATUS-FULL CODE ADMISSION STATUS-patient will be admitted to inpatient status, expect at least a 2 night hospital stay for evaluation and management of problems as outlined above. At the time of this admission I do not reasonably expected evaluation and management of this problem will require more than a 96 hour hospital stay. DISPOSITION-anticipate discharge to home after the hospital stay. PRIMARY CARE PROVIDER-Dr. Dawkins - Mortality Measure Prognosis:: Good
[2019-05-06] MEDS ORDERED: LORazepam 1 MG Tab PO SCH (16:26)
[2019-05-06] MEDS ORDERED: LORazepam 2 MG/ML SDV IV SCH (16:26)
[2019-05-06] MEDS ORDERED: Ondansetron 4 MG/2 ML SDV IV PRN (16:26)
[2019-05-06] MEDS ORDERED: Polyethylene Glycol 3350 Powder 17 GM Packet PO PRN (16:26)
[2019-05-06] MEDS: Sodium Chloride 0.9% 100 ML with Pantoprazole 80 MG IV SCH ×2 (16:27)
[2019-05-06] MEDS ORDERED: Potassium Chloride 20 MEQ Tab.ER PO ONE ×2 (17:15→23:00)
[2019-05-06] MEDS: Folic Acid 1 MG Tab PO SCH (17:22)
[2019-05-06] MEDS: Potassium Chloride 10 MEQ Cap.ER PO SCH (17:22)
[2019-05-06] MEDS: Gabapentin 400 MG Cap PO SCH (17:23)
[2019-05-06] MEDS: Thiamine 100 MG Tab PO SCH (17:23)
[2019-05-06] MEDS ORDERED: oxyCODONE 5 MG Tab PO PRN (20:12)
[2019-05-06] MEDS ORDERED: Non-Formulary Medication 1 Each (Potassium Chloride [Potassium Chloride] 20 MEQ) PO SCH (21:00)
[2019-05-06] MEDS: Lactated Ringers 1,000 ML IV SCH (22:26)
[2019-05-06] MEDS: Octreotide 500 MCG in Sodium Chloride 0.9% 497.5 ML IV SCH (23:31)
[2019-05-07] MEDS: Gabapentin 400 MG Cap PO SCH ×3 (01:59→18:18)
[2019-05-07] MEDS: Sodium Chloride 0.9% 100 ML with Pantoprazole 80 MG IV SCH ×4 (01:59→12:04)
[2019-05-07] MEDS: Lactated Ringers 1,000 ML IV SCH (06:02)
--- NOTE | 2019-05-07 08:09 | OR ---
DATE OF PROCEDURE: 05/06/2019 SURGEON: Sha Phillips MD PREPROCEDURE DIAGNOSIS: Ascites. POSTPROCEDURE DIAGNOSIS: Ascites. PROCEDURE: Paracentesis removing 5500 mL of serous fluid. ANESTHESIA: Lidocaine 1% local. INDICATION: This 43-year-old white female has an alcohol problem. She has developed ascites. She has undergone a paracentesis in the past once, about a month ago in [place]. She now presents with a markedly distended abdomen and is quite uncomfortable from this. Request is made for paracentesis. The corrugator supervisor marked a good spot for this to be done. Her INR was 1.2. I counseled her for the paracentesis, including risks and alternatives, and she gave her informed consent to proceed. DESCRIPTION OF PROCEDURE: The patient's abdomen was prepped and draped in the usual sterile fashion. Time-out was held. Lidocaine 1% was infiltrated at the site marked by the corrugator supervisor for the paracentesis. The needle was introduced into the abdomen and aspirated, obtaining serous fluid indicating this is indeed a good place for the paracentesis. The needle was removed. A small incision was made and then through this, a needle with catheter manufactured by [employer] was then introduced into the abdomen. We aspirated on the needle and once fluid was obtained, the catheter was advanced, and the needle was removed. We, then using the suction technique, removed 5500 mL of serous fluid. When no more fluid could be removed, the catheter was removed and a sterile dressing was applied. She tolerated the procedure well. She also apparently had some hematemesis and will be admitted because of this, and the hospitalist is going to give her albumin. Sha Phillips MD /[id number]
[2019-05-07] MEDS ORDERED: Midazolam 1 MG/ML 2 ML SDV ONE (08:16)
[2019-05-07] MEDS ORDERED: fentaNYL 100 MCG/2 ML SDV ONE (08:16)
[2019-05-07] MEDS ORDERED: Propofol 200 MG/20 ML SDV ONE (08:16)
[2019-05-07] MEDS: Magnesium Sulfate/Water 2 GM in Premix Bag 1 BAG IV SCH ×3 (08:31→19:39)
[2019-05-07] MEDS ORDERED: Non-Formulary Medication 1 Each (Multivitamin [Multi-Vitamin Daily] 1 EACH) PO SCH (09:00)
[2019-05-07] MEDS ORDERED: Spironolactone 25 MG Tab PO SCH (09:00)
[2019-05-07] MEDS: Potassium Chloride 10 MEQ Cap.ER PO SCH ×3 (10:26→17:04)
[2019-05-07] MEDS: Folic Acid 1 MG Tab PO SCH (10:27)
[2019-05-07] MEDS: Multivitamins with Iron/Calcium/Folic Acid/Minerals Tab PO SCH (10:27)
[2019-05-07] MEDS: Thiamine 100 MG Tab PO SCH (10:27)
[2019-05-07] MEDS: Octreotide 500 MCG in Sodium Chloride 0.9% 497.5 ML IV SCH (10:29)
--- NOTE | 2019-05-07 12:02 | PCM.PN ---
- General Info Date of Service: 05/07/19 Subjective Update: Ms. Ayala is been stable since admission with no further evidence of active bleeding. EGD performed this morning by Dr. Guerrero, shows gastritis as the likely source of recent blood loss. No active bleeding noted during EGD, old clots noted within the stomach. No evidence of bleeding from her esophageal varices. Functional Status: Reports: Ambulating, Urinating - Review of Systems General: Denies: Fever, Weakness, Chills Pulmonary: Reports: No Symptoms Cardiovascular: Reports: No Symptoms Gastrointestinal: Reports: Abdominal Pain. Denies: Constipation, Diarrhea, Nausea, Vomiting 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: Reports: No Symptoms - Patient Data Vitals - Most Recent: Last Vital Signs Temp 99.5 F 05/07/19 09:55 Pulse 92 05/07/19 11:00 Resp 17 05/07/19 11:00 BP 125/83 05/07/19 11:00 Pulse Ox 97 05/07/19 11:00 Weight - Most Recent: 164 lb 0.383 oz I&O - Last 24 Hours: Intake & Output 05/06/19 05/07/19 05/07/19 22:59 06:59 14:59 Intake Total 3156 100 Output Total 200 Balance -200 3156 100 Lab Results Last 24 Hours: Laboratory Results - last 24 hr 05/06/19 05/06/19 05/06/19 Range/Units 13:37 13:49 13:49 WBC 11.2 H (4.5-11.0) K/uL RBC 3.02 L (3.30-5.50) M/uL Hgb 9.6 L (12.0-15.0) g/dL Hct 30.5 L (36.0-48.0) % MCV 101 H (80-98) fL MCH 32 H (27-31) pg MCHC 32 (32-36) % Plt Count 262 (150-400) K/uL Neut % (Auto) 73 H (36-66) % Lymph % (Auto) 14 L (24-44) % Henry % (Auto) 12 H (2-6) % Eos % (Auto) 1 L (2-4) % Baso % (Auto) 0 (0-1) % PT 12.8 H (9.5-12.0) sec INR 1.20 (0.80-1.20) APTT 26.8 L (27.0-36.0) sec Sodium (140-148) mmol/L Potassium (3.6-5.2) mmol/L Chloride (100-108) mmol/L Carbon Dioxide (21-32) mmol/L Anion Gap (5.0-14.0) mmol/L BUN (7-18) mg/dL Creatinine (0.6-1.0) mg/dL Est Cr Clr Drug Dosing mL/min Estimated GFR (MDRD) (>60) Glucose (74-106) mg/dL Lactic Acid (0.4-2.0) mmol/L Calcium (8.5-10.1) mg/dL Magnesium (1.8-2.4) mg/dL Total Bilirubin (0.2-1.0) mg/dL AST (15-37) U/L ALT (12-78) U/L Alkaline Phosphatase (46-116) U/L Ammonia (11-32) mmol/L Total Protein (6.4-8.2) g/dL Albumin (3.4-5.0) g/dL Globulin (2.3-3.5) g/dL Albumin/Globulin Ratio (1.2-2.2) Urine Color (YELLOW) Urine Appearance (CLEAR) Urine pH (5.0-8.0) Ur Specific [place] (1.008-1.030) Urine Protein (NEGATIVE) mg/dL Urine Glucose (UA) (NEGATIVE) mg/dL Urine Ketones (NEGATIVE) mg/dL Urine Occult Blood (NEGATIVE) Urine Nitrite (NEGATIVE) Urine Bilirubin (NEGATIVE) Urine Urobilinogen (0.2-1.0) EU/dL Ur Leukocyte Esterase (NEGATIVE) Urine RBC (0-5) Urine WBC (0-5) Ur Epithelial Cells Amorphous Sediment Urine Bacteria Urine Mucus Fluid Type Fluid WBC /ul Fluid RBC /ul Fluid Mononuclear Cell % Fl Polymorphonucl Cell % Fluid Glucose mg/dL Fluid Total Protein g/dL Fluid LDH IU/L Fluid Amylase U/L Ethyl Alcohol 170 mg/dL Blood Type Gel Antibody Screen Crossmatch 05/06/19 05/06/19 05/06/19 Range/Units 13:49 13:49 13:49 WBC (4.5-11.0) K/uL RBC (3.30-5.50) M/uL Hgb (12.0-15.0) g/dL Hct (36.0-48.0) % MCV (80-98) fL MCH (27-31) pg MCHC (32-36) % Plt Count (150-400) K/uL Neut % (Auto) (36-66) % Lymph % (Auto) (24-44) % Henry % (Auto) (2-6) % Eos % (Auto) (2-4) % Baso % (Auto) (0-1) % PT (9.5-12.0) sec INR (0.80-1.20) APTT (27.0-36.0) sec Sodium 143 (140-148) mmol/L Potassium 3.0 L (3.6-5.2) mmol/L Chloride 104 (100-108) mmol/L Carbon Dioxide 26 (21-32) mmol/L Anion Gap 16.0 H (5.0-14.0) mmol/L BUN 9 D (7-18) mg/dL Creatinine 0.7 (0.6-1.0) mg/dL Est Cr Clr Drug Dosing 95.17 mL/min Estimated GFR (MDRD) > 60 (>60) Glucose 119 H (74-106) mg/dL Lactic Acid (0.4-2.0) mmol/L Calcium 8.1 L (8.5-10.1) mg/dL Magnesium (1.8-2.4) mg/dL Total Bilirubin 0.8 D (0.2-1.0) mg/dL AST 128 H (15-37) U/L ALT 43 (12-78) U/L Alkaline Phosphatase 307 H (46-116) U/L Ammonia 14 (11-32) mmol/L Total Protein 7.0 (6.4-8.2) g/dL Albumin 2.3 L (3.4-5.0) g/dL Globulin 4.7 H (2.3-3.5) g/dL Albumin/Globulin Ratio 0.5 L (1.2-2.2) Urine Color (YELLOW) Urine Appearance (CLEAR) Urine pH (5.0-8.0) Ur Specific [place] (1.008-1.030) Urine Protein (NEGATIVE) mg/dL Urine Glucose (UA) (NEGATIVE) mg/dL Urine Ketones (NEGATIVE) mg/dL Urine Occult Blood (NEGATIVE) Urine Nitrite (NEGATIVE) Urine Bilirubin (NEGATIVE) Urine Urobilinogen (0.2-1.0) EU/dL Ur Leukocyte Esterase (NEGATIVE) Urine RBC (0-5) Urine WBC (0-5) Ur Epithelial Cells Amorphous Sediment Urine Bacteria Urine Mucus Fluid Type Fluid WBC /ul Fluid RBC /ul Fluid Mononuclear Cell % Fl Polymorphonucl Cell % Fluid Glucose mg/dL Fluid Total Protein g/dL Fluid LDH IU/L Fluid Amylase U/L Ethyl Alcohol mg/dL Blood Type A POSITIVE Gel Antibody Screen Negative Crossmatch See Detail 05/06/19 05/06/19 05/06/19 Range/Units 13:49 15:24 15:24 WBC (4.5-11.0) K/uL RBC (3.30-5.50) M/uL Hgb (12.0-15.0) g/dL Hct (36.0-48.0) % MCV (80-98) fL MCH (27-31) pg MCHC (32-36) % Plt Count (150-400) K/uL Neut % (Auto) (36-66) % Lymph % (Auto) (24-44) % Henry % (Auto) (2-6) % Eos % (Auto) (2-4) % Baso % (Auto) (0-1) % PT (9.5-12.0) sec INR (0.80-1.20) APTT (27.0-36.0) sec Sodium (140-148) mmol/L Potassium (3.6-5.2) mmol/L Chloride (100-108) mmol/L Carbon Dioxide (21-32) mmol/L Anion Gap (5.0-14.0) mmol/L BUN (7-18) mg/dL Creatinine (0.6-1.0) mg/dL Est Cr Clr Drug Dosing mL/min Estimated GFR (MDRD) (>60) Glucose (74-106) mg/dL Lactic Acid 3.9 H (0.4-2.0) mmol/L Calcium (8.5-10.1) mg/dL Magnesium (1.8-2.4) mg/dL Total Bilirubin (0.2-1.0) mg/dL AST (15-37) U/L ALT (12-78) U/L Alkaline Phosphatase (46-116) U/L Ammonia (11-32) mmol/L Total Protein (6.4-8.2) g/dL Albumin 0.4 L (3.4-5.0) g/dL Globulin (2.3-3.5) g/dL Albumin/Globulin Ratio (1.2-2.2) Urine Color (YELLOW) Urine Appearance (CLEAR) Urine pH (5.0-8.0) Ur Specific [place] (1.008-1.030) Urine Protein (NEGATIVE) mg/dL Urine Glucose (UA) (NEGATIVE) mg/dL Urine Ketones (NEGATIVE) mg/dL Urine Occult Blood (NEGATIVE) Urine Nitrite (NEGATIVE) Urine Bilirubin (NEGATIVE) Urine Urobilinogen (0.2-1.0) EU/dL Ur Leukocyte Esterase (NEGATIVE) Urine RBC (0-5) Urine WBC (0-5) Ur Epithelial Cells Amorphous Sediment Urine Bacteria Urine Mucus Fluid Type Peritoneal fluid Fluid WBC 172 /ul Fluid RBC 39 /ul Fluid Mononuclear Cell 92 % Fl Polymorphonucl Cell 8 % Fluid Glucose mg/dL Fluid Total Protein g/dL Fluid LDH IU/L Fluid Amylase U/L Ethyl Alcohol mg/dL Blood Type Gel Antibody Screen Crossmatch 05/06/19 05/06/19 05/06/19 Range/Units 15:24 15:24 17:00 WBC (4.5-11.0) K/uL RBC (3.30-5.50) M/uL Hgb 8.8 L (12.0-15.0) g/dL Hct (36.0-48.0) % MCV (80-98) fL MCH (27-31) pg MCHC (32-36) % Plt Count (150-400) K/uL Neut % (Auto) (36-66) % Lymph % (Auto) (24-44) % Henry % (Auto) (2-6) % Eos % (Auto) (2-4) % Baso % (Auto) (0-1) % PT (9.5-12.0) sec INR (0.80-1.20) APTT (27.0-36.0) sec Sodium (140-148) mmol/L Potassium (3.6-5.2) mmol/L Chloride (100-108) mmol/L Carbon Dioxide (21-32) mmol/L Anion Gap (5.0-14.0) mmol/L BUN (7-18) mg/dL Creatinine (0.6-1.0) mg/dL Est Cr Clr Drug Dosing mL/min Estimated GFR (MDRD) (>60) Glucose (74-106) mg/dL Lactic Acid (0.4-2.0) mmol/L Calcium (8.5-10.1) mg/dL Magnesium (1.8-2.4) mg/dL Total Bilirubin (0.2-1.0) mg/dL AST (15-37) U/L ALT (12-78) U/L Alkaline Phosphatase (46-116) U/L Ammonia (11-32) mmol/L Total Protein (6.4-8.2) g/dL Albumin (3.4-5.0) g/dL Globulin (2.3-3.5) g/dL Albumin/Globulin Ratio (1.2-2.2) Urine Color (YELLOW) Urine Appearance (CLEAR) Urine pH (5.0-8.0) Ur Specific [place] (1.008-1.030) Urine Protein (NEGATIVE) mg/dL Urine Glucose (UA) (NEGATIVE) mg/dL Urine Ketones (NEGATIVE) mg/dL Urine Occult Blood (NEGATIVE) Urine Nitrite (NEGATIVE) Urine Bilirubin (NEGATIVE) Urine Urobilinogen (0.2-1.0) EU/dL Ur Leukocyte Esterase (NEGATIVE) Urine RBC (0-5) Urine WBC (0-5) Ur Epithelial Cells Amorphous Sediment Urine Bacteria Urine Mucus Fluid Type Peritoneal fluid Peritoneal fluid Fluid WBC /ul Fluid RBC /ul Fluid Mononuclear Cell % Fl Polymorphonucl Cell % Fluid Glucose 113 mg/dL Fluid Total Protein 1.1 g/dL Fluid LDH 78 IU/L Fluid Amylase 14 U/L Ethyl Alcohol mg/dL Blood Type Gel Antibody Screen Crossmatch 05/06/19 05/06/19 05/06/19 Range/Units 19:57 23:00 23:00 WBC (4.5-11.0) K/uL RBC (3.30-5.50) M/uL Hgb 8.2 L (12.0-15.0) g/dL Hct (36.0-48.0) % MCV (80-98) fL MCH (27-31) pg MCHC (32-36) % Plt Count (150-400) K/uL Neut % (Auto) (36-66) % Lymph % (Auto) (24-44) % Henry % (Auto) (2-6) % Eos % (Auto) (2-4) % Baso % (Auto) (0-1) % PT (9.5-12.0) sec INR (0.80-1.20) APTT (27.0-36.0) sec Sodium (140-148) mmol/L Potassium (3.6-5.2) mmol/L Chloride (100-108) mmol/L Carbon Dioxide (21-32) mmol/L Anion Gap (5.0-14.0) mmol/L BUN (7-18) mg/dL Creatinine (0.6-1.0) mg/dL Est Cr Clr Drug Dosing mL/min Estimated GFR (MDRD) (>60) Glucose (74-106) mg/dL Lactic Acid 2.5 H (0.4-2.0) mmol/L Calcium (8.5-10.1) mg/dL Magnesium (1.8-2.4) mg/dL Total Bilirubin (0.2-1.0) mg/dL AST (15-37) U/L ALT (12-78) U/L Alkaline Phosphatase (46-116) U/L Ammonia (11-32) mmol/L Total Protein (6.4-8.2) g/dL Albumin (3.4-5.0) g/dL Globulin (2.3-3.5) g/dL Albumin/Globulin Ratio (1.2-2.2) Urine Color Yellow (YELLOW) Urine Appearance Cloudy A (CLEAR) Urine pH 6.0 (5.0-8.0) Ur Specific [place] 1.025 (1.008-1.030) Urine Protein Trace H (NEGATIVE) mg/dL Urine Glucose (UA) Negative (NEGATIVE) mg/dL Urine Ketones Negative (NEGATIVE) mg/dL Urine Occult Blood Negative (NEGATIVE) Urine Nitrite Negative (NEGATIVE) Urine Bilirubin Small H (NEGATIVE) Urine Urobilinogen 1.0 (0.2-1.0) EU/dL Ur Leukocyte Esterase Trace H (NEGATIVE) Urine RBC 0-5 (0-5) Urine WBC 5-10 H (0-5) Ur Epithelial Cells Many Amorphous Sediment Not seen Urine Bacteria Many Urine Mucus Few Fluid Type Fluid WBC /ul Fluid RBC /ul Fluid Mononuclear Cell % Fl Polymorphonucl Cell % Fluid Glucose mg/dL Fluid Total Protein g/dL Fluid LDH IU/L Fluid Amylase U/L Ethyl Alcohol mg/dL Blood Type Gel Antibody Screen Crossmatch 05/07/19 05/07/19 05/07/19 Range/Units 05:30 05:30 05:30 WBC 8.2 (4.5-11.0) K/uL RBC 2.55 L (3.30-5.50) M/uL Hgb 8.3 L (12.0-15.0) g/dL Hct 26.2 L (36.0-48.0) % MCV 103 H (80-98) fL MCH 33 H (27-31) pg MCHC 32 (32-36) % Plt Count 194 (150-400) K/uL Neut % (Auto) 68 H (36-66) % Lymph % (Auto) 17 L (24-44) % Henry % (Auto) 13 H (2-6) % Eos % (Auto) 2 (2-4) % Baso % (Auto) 0 (0-1) % PT 14.6 H (9.5-12.0) sec INR 1.38 H (0.80-1.20) APTT (27.0-36.0) sec Sodium 141 (140-148) mmol/L Potassium 3.8 (3.6-5.2) mmol/L Chloride 105 (100-108) mmol/L Carbon Dioxide 26 (21-32) mmol/L Anion Gap 10.0 (5.0-14.0) mmol/L BUN 6 L (7-18) mg/dL Creatinine 0.5 L (0.6-1.0) mg/dL Est Cr Clr Drug Dosing 133.24 mL/min Estimated GFR (MDRD) > 60 (>60) Glucose 79 (74-106) mg/dL Lactic Acid (0.4-2.0) mmol/L Calcium 7.4 L (8.5-10.1) mg/dL Magnesium 1.1 L D (1.8-2.4) mg/dL Total Bilirubin (0.2-1.0) mg/dL AST (15-37) U/L ALT (12-78) U/L Alkaline Phosphatase (46-116) U/L Ammonia (11-32) mmol/L Total Protein (6.4-8.2) g/dL Albumin (3.4-5.0) g/dL Globulin (2.3-3.5) g/dL Albumin/Globulin Ratio (1.2-2.2) Urine Color (YELLOW) Urine Appearance (CLEAR) Urine pH (5.0-8.0) Ur Specific [place] (1.008-1.030) Urine Protein (NEGATIVE) mg/dL Urine Glucose (UA) (NEGATIVE) mg/dL Urine Ketones (NEGATIVE) mg/dL Urine Occult Blood (NEGATIVE) Urine Nitrite (NEGATIVE) Urine Bilirubin (NEGATIVE) Urine Urobilinogen (0.2-1.0) EU/dL Ur Leukocyte Esterase (NEGATIVE) Urine RBC (0-5) Urine WBC (0-5) Ur Epithelial Cells Amorphous Sediment Urine Bacteria Urine Mucus Fluid Type Fluid WBC /ul Fluid RBC /ul Fluid Mononuclear Cell % Fl Polymorphonucl Cell % Fluid Glucose mg/dL Fluid Total Protein g/dL Fluid LDH IU/L Fluid Amylase U/L Ethyl Alcohol mg/dL Blood Type Gel Antibody Screen Crossmatch [facility] Results Last 24 Hours: Microbiology 05/06/19 15:24 Gram Stain - Final Abdominal Fluid - Aspirate Med Orders - Current: Current Medications Folic Acid (Folic Acid) 1 mg PO DAILY [facility] Last Admin: 05/07/19 10:27 Dose: 1 mg Gabapentin (Neurontin) 400 mg PO Q8H [facility] Last Admin: 05/07/19 10:27 Dose: 400 mg Pantoprazole Sodium 80 mg/ (Sodium Chloride) 100 mls @ 10 mls/hr IV .Q10H [facility] Stop: 05/07/19 16:00 Last Admin: 05/07/19 01:59 Dose: 10 mls/hr Octreotide Acetate 500 mcg/ (Sodium Chloride) 500 mls @ 50 mls/hr IV Q10H [facility] Stop: 05/07/19 14:30 Last Admin: 05/07/19 10:29 Dose: 50 mcg/hr, 50 mls/hr Magnesium Sulfate 2 gm/ Premix 50 mls @ 25 mls/hr IV Q6H [facility] Stop: 05/08/19 03:59 Last Admin: 05/07/19 08:31 Dose: 25 mls/hr Lorazepam (Ativan) 0 mg IV ASDIRECTED [facility]; Protocol Lorazepam (Ativan) 0 mg PO ASDIRECTED [facility]; Protocol Multivitamins/Minerals (Thera M Plus) 1 tab PO DAILY [facility] Last Admin: 05/07/19 10:27 Dose: 1 tab Ondansetron HCl (Zofran) 4 mg IV Q4H PRN PRN Reason: Nausea/Vomiting Oxycodone HCl (Oxycodone) 5 mg PO Q4H PRN PRN Reason: Pain Last Admin: 05/06/19 20:24 Dose: 5 mg Pantoprazole Sodium (Protonix) 40 mg PO BIDAC [facility] Polyethylene Glycol (Miralax) 17 gm PO DAILY PRN PRN Reason: Constipation Potassium Chloride (Potassium Chloride) 20 meq PO TIDMEALS [facility] Last Admin: 05/07/19 10:26 Dose: 20 meq Sodium Chloride (Saline Flush) 10 ml FLUSH ASDIRECTED PRN PRN Reason: Keep Vein Open Spironolactone (Aldactone) 12.5 mg PO DAILY [facility] Last Admin: 05/07/19 10:26 Dose: 12.5 mg Thiamine HCl (Vitamin B-1) 100 mg PO DAILY [facility] Last Admin: 05/07/19 10:27 Dose: 100 mg Discontinued Medications Fentanyl (Sublimaze) Confirm Administered Dose 100 mcg .ROUTE .STK-MED ONE Stop: 05/07/19 08:17 Lactated Ringer's (Ringers, Lactated) 1,000 mls @ 125 mls/hr IV ASDIRECTED [facility] Last Admin: 05/06/19 14:22 Dose: 125 mls/hr Octreotide Acetate 500 mcg/ (Sodium Chloride) 500 mls @ 50 mls/hr IV Q10H [facility] Last Admin: 05/06/19 14:22 Dose: 50 mcg/hr, 50 mls/hr Pantoprazole Sodium 80 mg/ (Sodium Chloride) 100 mls @ 200 mls/hr IV .BOLUS ONE Stop: 05/06/19 15:59 Last Admin: 05/06/19 15:43 Dose: 200 mls/hr Lactated Ringer's (Ringers, Lactated) 1,000 mls @ 125 mls/hr IV ASDIRECTED [facility] Last Admin: 05/07/19 06:02 Dose: 125 mls/hr Albumin Human (Albumin 25%) 25 gm in 100 mls @ 25 mls/hr IV Q4H [facility] Stop: 05/07/19 02:29 Last Admin: 05/06/19 22:11 Dose: 25 mls/hr Midazolam HCl (Versed 1 Mg/Ml) Confirm Administered Dose 2 mg .ROUTE .STK-MED ONE Stop: 05/07/19 08:17 Octreotide Acetate (Sandostatin) 50 mcg IVPUSH ONETIME ONE Stop: 05/06/19 13:33 Last Admin: 05/06/19 14:22 Dose: 50 mcg Ondansetron HCl (Zofran) 4 mg IVPUSH ONETIME ONE Stop: 05/06/19 13:33 Last Admin: 05/06/19 15:47 Dose: Not Given Potassium Chloride (Klor-Con M20) 40 meq PO ONETIME ONE Stop: 05/06/19 23:01 Last Admin: 05/06/19 23:31 Dose: 40 meq Propofol (Diprivan 20 Ml) Confirm Administered Dose 200 mg .ROUTE .STK-MED ONE Stop: 05/07/19 08:17 Sodium Chloride (Saline Flush) 10 ml FLUSH ASDIRECTED PRN PRN Reason: Keep Vein Open Last Admin: 05/06/19 14:24 Dose: 10 ml - Exam Quality Assessment: DVT Prophylaxis General: Alert, Oriented, Cooperative, Mild Distress Lungs: Clear to Auscultation, Normal Respiratory Effort Cardiovascular: Regular Rate, Regular Rhythm, No Murmurs GI/Abdominal Exam: Soft, No Organomegaly, Tender. No: Distended, Guarding, Rigid, Rebound Extremities: Non-Tender, No Pedal Edema Sepsis Event Note - Evaluation Sepsis Screening Result: No Definite Risk - Focused Exam Vital Signs: Vital Signs Temp Pulse Resp BP Pulse Ox 05/07/19 11:00 92 17 125/83 97 05/07/19 10:49 98 16 127/80 97 05/07/19 10:15 105 H 18 124/78 97 05/07/19 10:05 102 H 18 137/81 92 L 05/07/19 09:55 99.5 F 99 18 109/69 89 L 05/07/19 09:50 99 16 116/66 96 05/07/19 09:45 98 14 92/56 L 5 L 12/12/19 09:40 98 14 96/59 L 100 05/07/19 09:35 99.7 F 98 97 H 98/57 L 100 05/07/19 08:00 97.7 F 99 16 133/85 96 05/07/19 04:21 97.7 F 105 H 16 129/82 96 05/07/19 02:00 109 H 20 118/71 94 L Date Exam was Performed: 05/07/19 Time Exam was Performed: 11:58 - Problem List Review Problem List Initiated/Reviewed/Updated: Yes - My Orders Last 24 Hours: My Active Orders 05/06/19 13:49 RED BLOOD CELLS LP [BBK] Stat 05/06/19 15:18 Resuscitation Status Routine 05/06/19 16:00 Sodium Chloride 0.9% [Normal Saline] 100 ml Pantoprazole [ProTONIX IV] 80 mg IV 10 mls/hr 05/06/19 16:26 Patient Status [ADT] Routine Ambulate [RC] QID CIWAA Assessment [RC] Q4H Cardiac Monitoring [RC] .As Directed Height and Weight [RC] DAILY Intake and Output [RC] QSHIFT Notify Provider Consults [RC] ASDIRECTED Notify Provider Vital Signs [RC] ASDIRECTED Notify Provider [RC] PRN Oxygen Therapy [RC] PRN Peripheral IV Care [RC] . DIRECTED Up With Assistance [RC] ASDIRECTED Up to Chair [RC] QID VTE/DVT Education [RC] Per Unit Routine Vital Signs [RC] Q4H Consult to Physician [CONS] Routine LORazepam [Ativan] See Protocol IV ASDIRECTED LORazepam [Ativan] See Protocol PO ASDIRECTED Ondansetron [Zofran] 4 mg IV Q4H PRN Polyethylene Glycol 3350 [MiraLAX] 17 gm PO DAILY PRN Sodium Chloride 0.9% [Saline Flush] 10 ml FLUSH ASDIRECTED PRN Peripheral IV Insertion Adult [OM.PC] Routine Sequential Compression Device [OM.PC] Per Unit Routine VTE Pharmacological Contraindications [AST] Per Unit Routine 05/06/19 17:00 Folic Acid 1 mg PO DAILY Potassium Chloride 20 meq PO TIDMEALS Thiamine [Vitamin B-1] 100 mg PO DAILY 05/06/19 18:00 Gabapentin [Neurontin] 400 mg PO Q8H 05/06/19 20:12 oxyCODONE 5 mg PO Q4H PRN 05/06/19 23:45 Octreotide [SandoSTATIN] 500 mcg Sodium Chloride 0.9% [Normal Saline] 497.5 ml IV Q10H 05/07/19 08:00 Magnesium Sulfate/Water [Magnesium Sulfate in Water Premix] 2 gm Premix Bag 1 bag IV Q6H 05/07/19 09:00 Multivitamins w-Iron/Ca/FA/Min [Thera M Plus] 1 tab PO DAILY Spironolactone [Aldactone] 12.5 mg PO DAILY 05/07/19 11:54 Convert IV to Saline Lock [OM.PC] Routine 05/07/19 11:56 Consult to Dietary [Consult to Director Of Promotions] [CONS] Routine 05/07/19 16:30 Pantoprazole [ProTONIX] 40 mg PO BIDAC 05/07/19 17:00 HGB [HEMOGLOBIN] [HEME] Stat 05/07/19 Lunch 2 Gram Sodium Diet [DIET] 05/08/19 05:11 HGB [HEMOGLOBIN] [HEME] AM - Plan Plan:: UPPER GI BLEED-she has a history of esophageal reflux but no history of ulcer disease. EGD at the time of her last visit showed esophageal varices which were not bleeding, esophagitis with esophageal erosions and gastritis -2 g sodium -Serial hemoglobin levels -Surgical follow-up per Dr. Guerrero -Protonix continous infusion, discontinue later today -Octreotide continuous infusion, discontinue later today -Maintained 2 IV sites -Saline lock IV -Protonix 40 mg by mouth twice a day starting tonight -2 units of blood on hold ALCOHOL WITHDRAWAL-history of long-standing use -Alcohol withdrawal protocol -Gabapentin 400 mg by mouth every 8 hours 4 days, then 200 mg every 8 hours 4 days HEPATIC CIRRHOSIS WITH ASCITES- s/p large volume paracentesis in the ED -Monitor daily liver tests -2 gm sodium diet when eating -consider fluid restriction -increase Spironolactone dose MAINTENANCE ISSUES -DVT prophylaxis; not indicated -GI prophylaxis; Protonix as above -Odom catheter; not indicated -Nutrition; nothing by mouth after midnight -Nicotine dependence; not required CODE STATUS-FULL CODE ADMISSION STATUS-patient will be admitted to inpatient status, expect at least a 2 night hospital stay for evaluation and management of problems as outlined above. At the time of this admission I do not reasonably expected evaluation and management of this problem will require more than a 96 hour hospital stay. DISPOSITION-anticipate discharge to home after the hospital stay. PRIMARY CARE PROVIDER-Dr. Dawkins
[2019-05-07] MEDS: Spironolactone 25 MG Tab PO SCH ×2 (13:00→20:59)
--- NOTE | 2019-05-07 13:06 | OR ---
DATE OF PROCEDURE: 05/07/2019 SURGEON: Aric Guerrero MD PROCEDURE: Esophagogastroduodenoscopy. FINDINGS: 1. Very mild gastritis, most likely etiology of GI bleeding, however, is not bleeding at this time. 2. Enlarged tongue at the GE junction, concern for Olmstead's esophagus versus GERD. RISKS: Risks, benefits, alternatives, and limitations including, but not limited to infection, bleeding, and perforation were explained to the patient, who wished to proceed. PROCEDURE IN DETAIL: The patient was placed in left lateral decubitus position. The EGD scope was introduced and advanced atraumatically to second part of the duodenum. No evidence of duodenitis or ulceration. Within the stomach itself, there was no active ulceration. At the area of the GE junction, within the stomach itself, there was a healing area, probable gastritis. The patient did not have prominent esophageal varices. The GE junction showed a prominent tongue concerning for Olmstead's. Therefore, this was biopsied x4 only due to the patient's ongoing active bleeding. The remainder of esophagus was normal. The patient tolerated the procedure well. Aric Guerrero MD /[id number]
[2019-05-07] MEDS: Pantoprazole 40 MG Tab.CR PO SCH (17:04)
[2019-05-08] MEDS: Magnesium Sulfate/Water 2 GM in Premix Bag 1 BAG IV SCH (01:02)
[2019-05-08] MEDS: Gabapentin 400 MG Cap PO SCH (01:02)
[2019-05-08] MEDS: Pantoprazole 40 MG Tab.CR PO SCH (07:34)
[2019-05-08] MEDS: Potassium Chloride 10 MEQ Cap.ER PO SCH (07:34)
[2019-05-08] MEDS: Multivitamins with Iron/Calcium/Folic Acid/Minerals Tab PO SCH (07:59)
[2019-05-08] MEDS: Spironolactone 25 MG Tab PO SCH (07:59)
[2019-05-08] MEDS ORDERED: Ferrous Sulfate 325 MG Tab PO SCH (08:00)
[2019-05-08] MEDS: Thiamine 100 MG Tab PO SCH (08:00)
[2019-05-08] MEDS: Folic Acid 1 MG Tab PO SCH (08:00)
--- NOTE | 2019-05-08 08:36 | PCM.DCSUM1 ---
Discharge Summary - Hospital Course Brief History: Ms. Robb is a 43-year-old woman who was admitted through the emergency department with large volume ascites secondary to hepatic cirrhosis and hematemesis secondary to an upper GI bleed. - Discharge Data Discharge Date: 05/08/19 Discharge Disposition: Home, Self-Care 01 Condition: Fair - Referral to Home Health Primary Care Physician: Hipolito Dawkins MD - Discharge Diagnosis/Problem(s) (1) Ascites due to alcoholic cirrhosis SNOMED Code(s): 2394506046251039 ICD Code: K70.31 - ALCOHOLIC CIRRHOSIS OF LIVER WITH ASCITES Status: Acute Current Visit: Yes (2) Gastritis SNOMED Code(s): 7403012 ICD Code: K29.70 - GASTRITIS, UNSPECIFIED, WITHOUT BLEEDING Status: Acute Current Visit: No (3) Esophageal varices determined by endoscopy SNOMED Code(s): 16013612, 617785552 ICD Code: I85.00 - ESOPHAGEAL VARICES WITHOUT BLEEDING Status: Acute Current Visit: No (4) Acute blood loss anemia SNOMED Code(s): 841736413 ICD Code: D62 - ACUTE POSTHEMORRHAGIC ANEMIA Status: Acute Current Visit : Yes (5) Upper GI bleeding SNOMED Code(s): 00005645 ICD Code: K92.2 - GASTROINTESTINAL HEMORRHAGE, UNSPECIFIED Status: Acute Current Visit: Yes (6) Cirrhosis of liver SNOMED Code(s): 95785412 ICD Code: K74.60 - UNSPECIFIED CIRRHOSIS OF LIVER Status: Acute Current Visit: No (7) Chronic alcohol abuse SNOMED Code(s): 705704797 ICD Code: F10.10 - ALCOHOL ABUSE, UNCOMPLICATED Status: Chronic Current Visit: No - Patient Summary/Data Consults: Consultations 05/06/19 16:26 Consult to Physician [CONS] Routine Consulting Provider: Aric Guerrero Call Completed to Consulting Physician: Yes Reason for Consult: UGI Bleed, EGD in am 05/07/19 11:56 Consult to Dietary [Consult to Operator Prefinish] [CONS] Routine Comment: Physician Instructions: Quantity: Reason for Consult: 2 gm Na diet Hospital Course: Ms. Ayala 43-year-old woman who was admitted through the emergency department with hematemesis secondary to upper GI bleed as well as hepatic cirrhosis with large volume ascites. She has a long-standing history of alcohol abuse and was hospitalized at this facility proximally 2 months ago with upper GI bleed and alcoholic hepatitis. Unfortunately she has continued to drink alcohol on a regular basis. This morning she experienced an episode of hematemesis. She has also had difficulty with progressive increase in abdominal girth. While in the emergency department she was seen by Dr. Phillips and underwent a large volume paracentesis. On admission she was started on octreotide drip as well as Protonix drip. She was also given IV fluids for hydration and serial hemoglobin levels were obtained. On the morning after admission she was seen and evaluated by Dr. Guerrero and underwent upper GI endoscopy. EGD showed evidence of gastritis which was felt to be the source of recent bleeding. IV octreotide and Protonix were discontinued and she was placed on Protonix twice daily. Further hemoglobin levels were monitored and remained stable up until the time of discharge. She will be discharged home on Protonix twice daily for 2 weeks, then 1 tablet daily thereafter. Dose of Spironolactone was increased to 3 times daily and this will be continued after discharge. She was also started on iron supplement 325 mg twice daily. She is instructed to follow a strict 2 g sodium diet for ongoing management of her ascites. Activity will be as tolerated. Follow-up appointment will be scheduled with her primary care provider within 1 week, CBC and BMP should be obtained at the time of follow-up appointment. - Patient Instructions Diet: Low Sodium Activity: As Tolerated Other/Special Instructions: Please schedule follow-up appointment with primary care provider within 1 week. BMP and CBC should be obtained at the time of follow-up appointment. - Discharge Plan *PRESCRIPTION DRUG MONITORING PROGRAM REVIEWED*: Not Applicable *COPY OF PRESCRIPTION DRUG MONITORING REPORT IN PATIENT EVONNE: Not Applicable Prescriptions/Med Rec: Ferrous Sulfate 325 mg PO BIDMEALS #60 tablet Pantoprazole [ProTONIX] 40 mg PO BIDAC #60 tab.cr Spironolactone [Aldactone] 12.5 mg PO TID #90 tablet Home Medications: Home Meds Potassium Chloride 20 meq PO TID 08/21/18 [History] Magnesium Oxide [Magnesium] 400 mg PO DAILY 01/01/19 [History] Multivitamin [Multi-Vitamin Daily] 1 each PO DAILY 01/01/19 [History] Ferrous Sulfate 325 mg PO BIDMEALS #60 tablet 05/08/19 [Rx] Pantoprazole [ProTONIX] 40 mg PO BIDAC #60 tab.cr 05/08/19 [Rx] Spironolactone [Aldactone] 12.5 mg PO TID #90 tablet 05/08/19 [Rx] Referrals: Hipolito Dawkins MD [Primary Care Provider] - 05/15/19 1:40 pm (labs prior to appt.) - Discharge Summary/Plan Comment DC Time >30 min.: No - Patient Data Vitals - Most Recent: Last Vital Signs Temp 98.3 F 05/08/19 07:31 Pulse 102 H 05/08/19 07:31 Resp 16 05/08/19 07:31 BP 132/84 05/08/19 07:31 Pulse Ox 97 05/08/19 07:31 Weight - Most Recent: 164 lb 0.383 oz I&O - Last 24 hours: Intake & Output 05/07/19 05/08/19 05/08/19 22:59 06:59 14:59 Intake Total 770 400 Balance 770 400 Lab Results - Last 24 hrs: Laboratory Results - last 24 hr 05/07/19 05/08/19 Range/Units 17:00 05:40 Hgb 8.1 L 8.3 L (12.0-15.0) g/dL TIMOTHY Results - Last 24 hrs: Microbiology 05/06/19 15:24 Gram Stain - Final Abdominal Fluid - Aspirate Body Fluid Culture - Preliminary NO GROWTH AFTER 1 DAY Med Orders - Current: Current Medications Ferrous Sulfate (Ferrous Sulfate) 325 mg PO BIDMEALS [facility] Folic Acid (Folic Acid) 1 mg PO DAILY [facility] Last Admin: 05/08/19 08:00 Dose: 1 mg Gabapentin (Neurontin) 400 mg PO Q8H [facility] Last Admin: 05/08/19 01:02 Dose: 400 mg Lorazepam (Ativan) 0 mg IV ASDIRECTED [facility]; Protocol Lorazepam (Ativan) 0 mg PO ASDIRECTED [facility]; Protocol Multivitamins/Minerals (Thera M Plus) 1 tab PO DAILY [facility] Last Admin: 05/08/19 07:59 Dose: 1 tab Ondansetron HCl (Zofran) 4 mg IV Q4H PRN PRN Reason: Nausea/Vomiting Oxycodone HCl (Oxycodone) 5 mg PO Q4H PRN PRN Reason: Pain Last Admin: 05/06/19 20:24 Dose: 5 mg Pantoprazole Sodium (Protonix) 40 mg PO BIDAC [facility] Last Admin: 05/08/19 07:34 Dose: 40 mg Polyethylene Glycol (Miralax) 17 gm PO DAILY PRN PRN Reason: Constipation Potassium Chloride (Potassium Chloride) 20 meq PO TIDMEALS [facility] Last Admin: 05/08/19 07:34 Dose: 20 meq Sodium Chloride (Saline Flush) 10 ml FLUSH ASDIRECTED PRN PRN Reason: Keep Vein Open Spironolactone (Aldactone) 12.5 mg PO TID [facility] Last Admin: 05/08/19 07:59 Dose: 12.5 mg Thiamine HCl (Vitamin B-1) 100 mg PO DAILY [facility] Last Admin: 05/08/19 08:00 Dose: 100 mg Discontinued Medications Fentanyl (Sublimaze) Confirm Administered Dose 100 mcg .ROUTE .STK-MED ONE Stop: 05/07/19 08:17 Lactated Ringer's (Ringers, Lactated) 1,000 mls @ 125 mls/hr IV ASDIRECTED [facility] Last Admin: 05/06/19 14:22 Dose: 125 mls/hr Octreotide Acetate 500 mcg/ (Sodium Chloride) 500 mls @ 50 mls/hr IV Q10H [facility] Last Admin: 05/06/19 14:22 Dose: 50 mcg/hr, 50 mls/hr Pantoprazole Sodium 80 mg/ (Sodium Chloride) 100 mls @ 200 mls/hr IV .BOLUS ONE Stop: 05/06/19 15:59 Last Admin: 05/06/19 15:43 Dose: 200 mls/hr Pantoprazole Sodium 80 mg/ (Sodium Chloride) 100 mls @ 10 mls/hr IV .Q10H [facility] Stop: 05/07/19 16:00 Last Admin: 05/07/19 12:04 Dose: 10 mls/hr Lactated Ringer's (Ringers, Lactated) 1,000 mls @ 125 mls/hr IV ASDIRECTED [facility] Last Admin: 05/07/19 06:02 Dose: 125 mls/hr Octreotide Acetate 500 mcg/ (Sodium Chloride) 500 mls @ 50 mls/hr IV Q10H [facility] Stop: 05/07/19 14:30 Last Admin: 05/07/19 10:29 Dose: 50 mcg/hr, 50 mls/hr Albumin Human (Albumin 25%) 25 gm in 100 mls @ 25 mls/hr IV Q4H [facility] Stop: 05/07/19 02:29 Last Admin: 05/06/19 22:11 Dose: 25 mls/hr Magnesium Sulfate 2 gm/ Premix 50 mls @ 25 mls/hr IV Q6H [facility] Stop: 05/08/19 03:59 Last Admin: 05/08/19 01:02 Dose: 25 mls/hr Midazolam HCl (Versed 1 Mg/Ml) Confirm Administered Dose 2 mg .ROUTE .STK-MED ONE Stop: 05/07/19 08:17 Octreotide Acetate (Sandostatin) 50 mcg IVPUSH ONETIME ONE Stop: 05/06/19 13:33 Last Admin: 05/06/19 14:22 Dose: 50 mcg Ondansetron HCl (Zofran) 4 mg IVPUSH ONETIME ONE Stop: 05/06/19 13:33 Last Admin: 05/06/19 15:47 Dose: Not Given Potassium Chloride (Klor-Con M20) 40 meq PO ONETIME ONE Stop: 05/06/19 23:01 Last Admin: 05/06/19 23:31 Dose: 40 meq Propofol (Diprivan 20 Ml) Confirm Administered Dose 200 mg .ROUTE .STK-MED ONE Stop: 05/07/19 08:17 Sodium Chloride (Saline Flush) 10 ml FLUSH ASDIRECTED PRN PRN Reason: Keep Vein Open Last Admin: 05/06/19 14:24 Dose: 10 ml Spironolactone (Aldactone) 12.5 mg PO DAILY [facility] Last Admin: 05/07/19 10:26 Dose: 12.5 mg - Exam General: Reports: Alert, Oriented, Cooperative, No Acute Distress Lungs: Reports: Clear to Auscultation, Normal Respiratory Effort Cardiovascular: Reports: Regular Rate, Regular Rhythm, No Murmurs GI/Abdominal Exam: Soft, No Organomegaly, Distended, Tender. No: Guarding, Rigid, Rebound *Q Meaningful Use (DIS) - VTE *Q VTE Pharmacological Contraindications *Q: Active Hemorrhage
== END 2019-05-08 08:55 | disposition home or self-care (01) | DRG 432 ==
LOC: JP.ED 12:47 → JP.ICU 15:15
PROVIDERS: ADMIT Hospitalist; ATTEND Hospitalist
PROC: 0W9G3ZZ Drainage of Peritoneal Cavity, Percutaneous Approach (ICD-10-PCS; 2019-05-06)
PROC: 0DB48ZX Excision of Esophagogastric Junction, Via Natural or Artificial Opening Endoscopic, Diagnostic (ICD-10-PCS; principal; 2019-05-07)
DX: K70.31 Alcoholic cirrhosis of liver with ascites (principal); K29.01 Acute gastritis with bleeding; D62 Acute posthemorrhagic anemia; I85.00 Esophageal varices without bleeding; F10.239 Alcohol dependence with withdrawal, unspecified; H54.7 Unspecified visual loss; I10 Essential (primary) hypertension; K21.9 Gastro-esophageal reflux disease without esophagitis; F31.9 Bipolar disorder, unspecified; E66.9 Obesity, unspecified; F17.210 Nicotine dependence, cigarettes, uncomplicated; Z79.899 Other long term (current) drug therapy; Z88.2 Allergy status to sulfonamides; Z88.1 Allergy status to other antibiotic agents; Z87.440 Personal history of urinary (tract) infections; Z98.51 Tubal ligation status; Z68.27 Body mass index [BMI] 27.0-27.9, adult
CPT/HCPCS: 36415; 80048; 80053; 81001; 82040; 82140; 82150; 82945; 83605; 83615; 83735; 84157; 85018; 85025; 85610; 85730; 86850; 86900; 86901; 86920; 86922; 87070; 87205; 88112; 88305; 89050; 96365; 96366; 96368; 99285; 99285-25; A9270-GY; C9113; G0480; J2250; J2354; J2704; J3010; J3475; J7040; J7050; J7120; P9047

== ENCOUNTER 2019-07-27 03:58 | Emergency (ER) | payer MEDICAID ==
[2019-07-27] MEDS ORDERED: Pantoprazole 40 MG Vial IVPUSH ONE (04:24)
[2019-07-27] MEDS ORDERED: Sodium Chloride 0.9% 10 ML Syringe FLUSH PRN (04:24)
[2019-07-27] MEDS ORDERED: Octreotide 100 MCG/ML SDV IVPUSH ONE (04:25)
[2019-07-27] MEDS ORDERED: Lactated Ringers 1,000 ML IV ONE ×2 (04:25→05:58)
[2019-07-27] MEDS ORDERED: Octreotide 500 MCG in Sodium Chloride 0.9% 497.5 ML IV SCH (04:30)
[2019-07-27] MEDS ORDERED: Sodium Chloride 0.9% 500 ML ONE (04:32)
[2019-07-27] MEDS ORDERED: Ondansetron 4 MG/2 ML SDV IVPUSH ONE (04:40)
--- NOTE | 2019-07-27 04:41 | EDM.PDOC ---
ED HPI GENERAL MEDICAL PROBLEM - General Chief Complaint: Abdominal Pain Stated Complaint: ABD PAIN Time Seen by Provider: 07/27/19 04:21 Source of Information: Reports: Patient, Old Records, RN Notes Reviewed History Limitations: Reports: No Limitations - History of Present Illness INITIAL COMMENTS - FREE TEXT/NARRATIVE: 44-year-old female presents emergency department today with complaint of vomiting blood, she has a known history of alcohol cirrhosis alcohol dependence as well as esophageal varices with history of hematemesis. She states this particular event started earlier this evening she does admit to consuming alcohol she has had 2 episodes of bright red blood emesis estimate about 300 cc. denies pain Pain Score (Numeric/FACES): 0 - Related Data Allergies Allergy/AdvReac Type Severity Reaction Status Date / Time sulfamethoxazole Allergy Itching Verified 07/27/19 04:31 [From Bactrim] trimethoprim [From Bactrim] Allergy Itching Verified 07/27/19 04:31 Home Meds: Home Meds Potassium Chloride 20 meq PO TID 08/21/18 [History] Magnesium Oxide [Magnesium] 400 mg PO DAILY 01/01/19 [History] Multivitamin [Multi-Vitamin Daily] 1 each PO DAILY 01/01/19 [History] Ferrous Sulfate 325 mg PO BIDMEALS #60 tablet 05/08/19 [Rx] Pantoprazole [ProTONIX] 40 mg PO BIDAC #60 tab.cr 05/08/19 [Rx] Spironolactone [Aldactone] 12.5 mg PO TID #90 tablet 05/08/19 [Rx] Past Medical History HEENT History: Reports: Impaired Vision Cardiovascular History: Reports: Hypertension Gastrointestinal History: Reports: Cirrhosis, GERD 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, Recurrent [employer]UCLE[employer]ATIONS [employer]IST History: Reports: Musculoskeletal History: Reports: Fracture Psychiatric History: Reports: Addiction, Bipolar Hematologic History: Reports: Blood Transfusion(s) Other Dermatologic History: tattoos - Infectious Disease History Infectious Disease History: Reports: None - Past Surgical History Female Surgical History: Reports: Tubal Ligation Social & Family History - Family History Cardiac: Reports: Bypass, Hypertension, AL, Pacemaker Psychiatric: Reports: Bipolar, Schizophrenia Endocrine/Metabolic: Reports: Diabetes, type II Oncologic: Reports: Colon - Tobacco Use Smoking Status *Q: Current Every Day Smoker - Caffeine Use Caffeine Use: Reports: None ED ROS GENERAL - Review of Systems Review Of Systems: See Below Constitutional: Reports: No Symptoms HEENT: Reports: No Symptoms Respiratory: Reports: No Symptoms Cardiovascular: Reports: No Symptoms GI/Abdominal: Reports: Abdominal Pain, Hematemesis, Nausea, Vomiting : Reports: No Symptoms ED EXAM, GI/ABD - Physical Exam Exam: See Below Exam Limited By: No Limitations General Appearance: Alert, Mild Distress Eyes: Bilateral: Normal Appearance Respiratory/Chest: No Respiratory Distress, Lungs Clear, Normal Breath Sounds, No Accessory Muscle Use, Chest Non-Tender Cardiovascular: Regular Rate, Rhythm, No Murmur GI/Abdominal Exam: Soft, Tender (Epigastric region) Extremities: Normal Inspection, Normal Range of Motion, No Pedal Edema Neurological: Alert Course - Vital Signs Last Recorded V/S: Last Vital Signs Temp 97.2 F 07/27/19 04:56 Pulse 113 H 07/27/19 05:02 Resp 16 07/27/19 05:02 BP 146/89 H 07/27/19 05:02 Pulse Ox 97 07/27/19 05:02 - Orders/Labs/Meds Orders: Active Orders 24 hr Category Date Time Status Head of Bed Elevation [RC] ASDIRECTED Care 07/27/19 04:24 Active Peripheral IV Care [RC] . DIRECTED Care 07/27/19 04:25 Active Nothing per Oral Now Diet [DIET] Diet 07/27/19 Breakfast Active RED BLOOD CELLS LP [BBK] Stat Lab 07/27/19 04:30 Received TYPE AND SCREEN [BBK] Stat Lab 07/27/19 04:30 Received Lactated Ringers [Ringers, Lactated] 1,000 ml Med 07/27/19 04:25 Active IV BOLUS Octreotide [SandoSTATIN] 500 mcg Med 07/27/19 04:30 Active Sodium Chloride 0.9% [Normal Saline] 497.5 ml IV Q10H Sodium Chloride 0.9% [Saline Flush] Med 07/27/19 04:24 Active 10 ml FLUSH ASDIRECTED PRN Nasogastric Orogastric Tube Insertion [OM.PC] Urgent Oth 07/27/19 04:24 Ordered Peripheral IV Insertion Adult [OM.PC] Urgent Oth 07/27/19 04:24 Ordered Medication Orders Lactated Ringer's (Ringers, Lactated) 1,000 mls @ 999 mls/hr IV BOLUS ONE Stop: 07/27/19 05:25 Last Admin: 07/27/19 04:40 Dose: 999 mls/hr Octreotide Acetate 500 mcg/ (Sodium Chloride) 500 mls @ 50 mls/hr IV Q10H [facility] Last Admin: 07/27/19 05:01 Dose: 50 mcg/hr, 50 mls/hr Sodium Chloride (Saline Flush) 10 ml FLUSH ASDIRECTED PRN PRN Reason: Keep Vein Open Last Admin: 07/27/19 04:40 Dose: 10 ml Labs: Laboratory Tests 07/27/19 07/27/19 07/27/19 Range/Units 04:30 04:30 04:30 WBC 9.5 (4.5-11.0) K/uL RBC 4.01 (3.30-5.50) M/uL Hgb 12.8 D (12.0-15.0) g/dL Hct 39.3 (36.0-48.0) % MCV 98 (80-98) fL MCH 32 H (27-31) pg MCHC 33 (32-36) % Plt Count 137 L (150-400) K/uL Neut % (Auto) 65 (36-66) % Lymph % (Auto) 22 L (24-44) % Runnels % (Auto) 11 H (2-6) % Eos % (Auto) 2 (2-4) % Baso % (Auto) 0 (0-1) % PT 12.6 H (9.5-12.0) sec INR 1.18 (0.80-1.20) APTT 26.5 L (27.0-36.0) sec Sodium 136 L (140-148) mmol/L Potassium 3.0 L (3.6-5.2) mmol/L Chloride 98 L (100-108) mmol/L Carbon Dioxide 24 (21-32) mmol/L Anion Gap 17.0 H (5.0-14.0) mmol/L BUN 10 D (7-18) mg/dL Creatinine 0.8 D (0.6-1.0) mg/dL Est Cr Clr Drug Dosing 82.43 mL/min Estimated GFR (MDRD) > 60 (>60) Glucose 107 H (74-106) mg/dL Calcium 8.5 (8.5-10.1) mg/dL Total Bilirubin 2.1 H D (0.2-1.0) mg/dL AST 89 H (15-37) U/L ALT 45 (12-78) U/L Alkaline Phosphatase 167 H (46-116) U/L Ammonia (11-32) mmol/L Troponin I (0.000-0.056) ng/mL Total Protein 8.7 H (6.4-8.2) g/dL Albumin 3.5 (3.4-5.0) g/dL Globulin 5.2 H (2.3-3.5) g/dL Albumin/Globulin Ratio 0.7 L (1.2-2.2) HCG, Qual Ethyl Alcohol mg/dL 07/27/19 07/27/19 07/27/19 Range/Units 04:30 04:30 04:30 WBC (4.5-11.0) K/uL RBC (3.30-5.50) M/uL Hgb (12.0-15.0) g/dL Hct (36.0-48.0) % MCV (80-98) fL MCH (27-31) pg MCHC (32-36) % Plt Count (150-400) K/uL Neut % (Auto) (36-66) % Lymph % (Auto) (24-44) % Runnels % (Auto) (2-6) % Eos % (Auto) (2-4) % Baso % (Auto) (0-1) % PT (9.5-12.0) sec INR (0.80-1.20) APTT (27.0-36.0) sec Sodium (140-148) mmol/L Potassium (3.6-5.2) mmol/L Chloride (100-108) mmol/L Carbon Dioxide (21-32) mmol/L Anion Gap (5.0-14.0) mmol/L BUN (7-18) mg/dL Creatinine (0.6-1.0) mg/dL Est Cr Clr Drug Dosing mL/min Estimated GFR (MDRD) (>60) Glucose (74-106) mg/dL Calcium (8.5-10.1) mg/dL Total Bilirubin (0.2-1.0) mg/dL AST (15-37) U/L ALT (12-78) U/L Alkaline Phosphatase (46-116) U/L Ammonia 24 (11-32) mmol/L Troponin I (0.000-0.056) ng/mL Total Protein (6.4-8.2) g/dL Albumin (3.4-5.0) g/dL Globulin (2.3-3.5) g/dL Albumin/Globulin Ratio (1.2-2.2) HCG, Qual Negative Ethyl Alcohol 403 mg/dL 07/27/19 Range/Units 04:30 WBC (4.5-11.0) K/uL RBC (3.30-5.50) M/uL Hgb (12.0-15.0) g/dL Hct (36.0-48.0) % MCV (80-98) fL MCH (27-31) pg MCHC (32-36) % Plt Count (150-400) K/uL Neut % (Auto) (36-66) % Lymph % (Auto) (24-44) % Runnels % (Auto) (2-6) % Eos % (Auto) (2-4) % Baso % (Auto) (0-1) % PT (9.5-12.0) sec INR (0.80-1.20) APTT (27.0-36.0) sec Sodium (140-148) mmol/L Potassium (3.6-5.2) mmol/L Chloride (100-108) mmol/L Carbon Dioxide (21-32) mmol/L Anion Gap (5.0-14.0) mmol/L BUN (7-18) mg/dL Creatinine (0.6-1.0) mg/dL Est Cr Clr Drug Dosing mL/min Estimated GFR (MDRD) (>60) Glucose (74-106) mg/dL Calcium (8.5-10.1) mg/dL Total Bilirubin (0.2-1.0) mg/dL AST (15-37) U/L ALT (12-78) U/L Alkaline Phosphatase (46-116) U/L Ammonia (11-32) mmol/L Troponin I 0.060 H* (0.000-0.056) ng/mL Total Protein (6.4-8.2) g/dL Albumin (3.4-5.0) g/dL Globulin (2.3-3.5) g/dL Albumin/Globulin Ratio (1.2-2.2) HCG, Qual Ethyl Alcohol mg/dL Meds: Medications Generic Name Dose Route Start Last Admin Trade Name Freq PRN Reason Stop Dose Admin Lactated Ringer's 1,000 mls @ 999 mls/hr 07/27/19 04:25 07/27/19 04:40 Ringers, Lactated IV 07/27/19 05:25 999 mls/hr BOLUS ONE Administration Octreotide Acetate 500 mcg/ 500 mls @ 50 mls/hr 07/27/19 04:30 07/27/19 05:01 Sodium Chloride IV 50 mcg/hr Q10H KAREN 50 mls/hr Administration 50 MCG/HR Sodium Chloride 10 ml 07/27/19 04:24 07/27/19 04:40 Saline Flush FLUSH 10 ml ASDIRECTED PRN Administration Keep Vein Open Discontinued Medications Generic Name Dose Route Start Last Admin Trade Name Freq PRN Reason Stop Dose Admin Sodium Chloride Confirm 07/27/19 04:32 07/27/19 04:56 Normal Saline Administered 07/27/19 04:33 Not Given Dose 500 mls @ as directed .ROUTE .STK-MED ONE Octreotide Acetate 50 mcg 07/27/19 04:25 07/27/19 04:37 Sandostatin IVPUSH 07/27/19 04:26 50 mcg ONETIME ONE Administration Ondansetron HCl 4 mg 07/27/19 04:40 07/27/19 04:49 Zofran IVPUSH 07/27/19 04:41 4 mg ONETIME ONE Administration Pantoprazole Sodium 80 mg 07/27/19 04:24 07/27/19 04:45 Protonix Iv IVPUSH 07/27/19 04:25 80 mg .BOLUS ONE Administration Departure - Departure Time of Disposition: 05:28 Disposition: Admitted As Inpatient 68 Condition: Poor Clinical Impression: Upper GI bleeding - Discharge Information Referrals: Hipolito Dawkins MD [Primary Care Provider] - Forms: ED Department Discharge Sepsis Event Note - Focused Exam Vital Signs: Vital Signs Temp Pulse Resp BP Pulse Ox 07/27/19 05:02 113 H 16 146/89 H 97 07/27/19 04:56 97.2 F 131 H 13 153/99 H 98 07/27/19 04:33 97.2 F 131 H 13 153/99 H 98 Date Exam was Performed: 07/27/19 Time Exam was Performed: 05:23 - My Orders Last 24 Hours: My Active Orders 07/27/19 04:24 Head of Bed Elevation [RC] ASDIRECTED Sodium Chloride 0.9% [Saline Flush] 10 ml FLUSH ASDIRECTED PRN Nasogastric Orogastric Tube Insertion [OM.PC] Urgent Peripheral IV Insertion Adult [OM.PC] Urgent 07/27/19 04:25 Peripheral IV Care [RC] . DIRECTED Lactated Ringers [Ringers, Lactated] 1,000 ml IV BOLUS 07/27/19 04:30 RED BLOOD CELLS LP [BBK] Stat TYPE AND SCREEN [BBK] Stat Octreotide [SandoSTATIN] 500 mcg Sodium Chloride 0.9% [Normal Saline] 497.5 ml IV Q10H 07/27/19 Breakfast Nothing per Oral Now Diet [DIET] - Assessment/Plan Last 24 Hours: My Active Orders 07/27/19 04:24 Head of Bed Elevation [RC] ASDIRECTED Sodium Chloride 0.9% [Saline Flush] 10 ml FLUSH ASDIRECTED PRN Nasogastric Orogastric Tube Insertion [OM.PC] Urgent Peripheral IV Insertion Adult [OM.PC] Urgent 07/27/19 04:25 Peripheral IV Care [RC] . DIRECTED Lactated Ringers [Ringers, Lactated] 1,000 ml IV BOLUS 07/27/19 04:30 RED BLOOD CELLS LP [BBK] Stat TYPE AND SCREEN [BBK] Stat Octreotide [SandoSTATIN] 500 mcg Sodium Chloride 0.9% [Normal Saline] 497.5 ml IV Q10H 07/27/19 Breakfast Nothing per Oral Now Diet [DIET] Plan: Assessment Acuity = acute Site and laterality = upper GI bleed complicated the patient with known history of esophageal varices alcohol abuse and dependence as well as liver cirrhosis Etiology = alcohol Manifestations = hematemesis Location of injury = Home Lab values = hemoglobin stable at 12.8 INR slightly elevated 1.18 sodium low at 136 consistent hyponatremia potassium low at 3.0 consistent with hypokalemia total bilirubin elevated 2.1 consistent hyperbilirubinemia AST elevated at 89 consistent elevated liver enzymes troponin slightly elevated 0.067 probably related to recent upper GI bleed and tachycardia associated with this. Beta- hCG was negative alcohol level is 403 Plan Call discussed case with Dr. Guerrero [phone] kindly agreed to come and evaluate the patient in the emergency department. Thus far she is received 1 L fluids, octreotide, Protonix, Zofran and Ativan nursing staff is currently working on an NG tube placement, type and screen has been done This note was dictated using NEXAGE voice recognition software please call with any questions on syntax or grammar.
[2019-07-27] MEDS ORDERED: LORazepam 2 MG/ML SDV IVPUSH ONE ×2 (05:27→06:43)
[2019-07-27] MEDS ORDERED: LORazepam 2 MG/ML SDV IVPUSH PRN (05:56)
[2019-07-27] MEDS ORDERED: MVI, Adult with Vitamin K 10 ML, Thiamine 100 MG, Folic Acid 1 MG, Magnesium Sulfate 3 ... IV SCH ×5 (06:00)
--- NOTE | 2019-07-27 06:17 | PCM.HP.2 ---
H&P History of Present Illness - General Date of Service: 07/27/19 Admit Problem/Dx: Admission Diagnosis/Problem Admission Diagnosis/Problem Esophageal varices in cirrhosis Source of Information: Patient History Limitations: Reports: Altered Mental Status - History of Present Illness Initial Comments - Free Text/Narative: Patient is a 44yo female with a PMH of alcohol use disorder who presents to the ED with hematemesis of bright red blood. She has had similar problems in the past and says she has been drinking since her birthday. She claims to have been taking her meds, but then says she only takes them sometimes. She declines any assistance in treatment of her ENOC. She says she has been throwing up blood and she says her grandkids have the flu and she says thats why she's bleeding. She declines any BRBPR or melena at this time. She is currently intoxicated which limits her ability to discuss the situation appropriately. Location: Reports: Abdomen denies pain Pain Score (Numeric/FACES): 0 - Related Data Allergies/Adverse Reactions: Allergies Allergy/AdvReac Type Severity Reaction Status Date / Time sulfamethoxazole Allergy Itching Verified 07/27/19 04:31 [From Bactrim] trimethoprim [From Bactrim] Allergy Itching Verified 07/27/19 04:31 Home Medications: Home Meds Potassium Chloride 20 meq PO TID 08/21/18 [History] Magnesium Oxide [Magnesium] 400 mg PO DAILY 01/01/19 [History] Multivitamin [Multi-Vitamin Daily] 1 each PO DAILY 01/01/19 [History] Ferrous Sulfate 325 mg PO BIDMEALS #60 tablet 05/08/19 [Rx] Pantoprazole [ProTONIX] 40 mg PO BIDAC #60 tab.cr 05/08/19 [Rx] Spironolactone [Aldactone] 12.5 mg PO TID #90 tablet 05/08/19 [Rx] Past Medical History HEENT History: Reports: Impaired Vision Cardiovascular History: Reports: Hypertension Gastrointestinal History: Reports: Cirrhosis, GERD, GI Bleed 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, Recurrent 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: Musculoskeletal History: Reports: Fracture Psychiatric History: Reports: Addiction, Bipolar, Other (See Below) Other Psychiatric History: abuse Hematologic History: Reports: Blood Transfusion(s) Dermatologic History: Reports: Other (See Below) Other Dermatologic History: tattoos - Infectious Disease History Infectious Disease History: Reports: None - Past Surgical History Female Surgical History: Reports: Tubal Ligation Social & Family History - Family History Cardiac: Reports: Bypass, Hypertension, [place], Pacemaker Psychiatric: Reports: Bipolar, Schizophrenia Endocrine/Metabolic: Reports: Diabetes, type II Oncologic: Reports: Colon - Tobacco Use Smoking Status *Q: Current Every Day Smoker Years of Tobacco use: 30 Packs/Tins Daily: 0.5 - Caffeine Use Caffeine Use: Reports: None - Alcohol Use Days Per Week of Alcohol Use: 5 Number of Drinks Per Day: 1 Total Drinks Per Week: 5 Date of Last Drink: 07/27/19 Time of Last Drink: 04:00 - Recreational Drug Use Recreational Drug Use: No H&P Review of Systems - Review of Systems: Review Of Systems: See Below General: Reports: No Symptoms HEENT: Reports: No Symptoms Cardiovascular: Reports: No Symptoms Gastrointestinal: Reports: Abdominal Pain, Hematemesis 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: Reports: No Symptoms Musculoskeletal: Reports: No Symptoms Skin: Reports: No Symptoms Neurological: Reports: No Symptoms Hematologic/Lymphatic: Reports: No Symptoms Immunologic: Reports: No Symptoms Exam - Exam Exam: See Below - Vital Signs Vital Signs: Last Vital Signs Temp 36.2 C 07/27/19 04:56 Pulse 113 H 07/27/19 05:02 Resp 16 07/27/19 05:02 BP 146/89 H 07/27/19 05:02 Pulse Ox 97 07/27/19 05:02 Weight: 68.8 kg - Exam General: Alert, Other (patient is intoxicated) HEENT: PERRLA, Hearing Intact, Mucosa Moist & [place], Nares Patent, Normal Nasal Septum, Posterior Pharynx Clear, Conjunctiva Clear, EOMI, EACs Clear, TMs Clear Neck: Supple, Trachea Midline, 2 Lungs: Clear to Auscultation, Normal Respiratory Effort Cardiovascular: Regular Rate, Regular Rhythm GI/Abdominal Exam: Normal Bowel Sounds, Distended (ascites) (Female) Exam: Deferred Rectal (Female) Exam: Deferred Back Exam: Normal Inspection, Full Range of Motion, NT Extremities: Normal Inspection, Normal Range of Motion, Non-Tender, No Pedal Edema, Normal Capillary Refill Skin: Warm, Dry, Intact Neurological: Cranial Nerves Intact, Reflexes Equal Bilateral Neuro Extensive - Mental Status: Alert, Other (alcohol intoxication) Psychiatric: Alert, Labile Mood - Patient Data Lab Results Last 24 hrs: Laboratory Results - last 24 hr 07/27/19 07/27/19 07/27/19 Range/Units 04:30 04:30 04:30 WBC 9.5 (4.5-11.0) K/uL RBC 4.01 (3.30-5.50) M/uL Hgb 12.8 D (12.0-15.0) g/dL Hct 39.3 (36.0-48.0) % MCV 98 (80-98) fL MCH 32 H (27-31) pg MCHC 33 (32-36) % Plt Count 137 L (150-400) K/uL Neut % (Auto) 65 (36-66) % Lymph % (Auto) 22 L (24-44) % Porter % (Auto) 11 H (2-6) % Eos % (Auto) 2 (2-4) % Baso % (Auto) 0 (0-1) % PT 12.6 H (9.5-12.0) sec INR 1.18 (0.80-1.20) APTT 26.5 L (27.0-36.0) sec Sodium 136 L (140-148) mmol/L Potassium 3.0 L (3.6-5.2) mmol/L Chloride 98 L (100-108) mmol/L Carbon Dioxide 24 (21-32) mmol/L Anion Gap 17.0 H (5.0-14.0) mmol/L BUN 10 D (7-18) mg/dL Creatinine 0.8 D (0.6-1.0) mg/dL Est Cr Clr Drug Dosing 82.43 mL/min Estimated GFR (MDRD) > 60 (>60) Glucose 107 H (74-106) mg/dL Calcium 8.5 (8.5-10.1) mg/dL Total Bilirubin 2.1 H D (0.2-1.0) mg/dL AST 89 H (15-37) U/L ALT 45 (12-78) U/L Alkaline Phosphatase 167 H (46-116) U/L Ammonia (11-32) mmol/L Troponin I (0.000-0.056) ng/mL Total Protein 8.7 H (6.4-8.2) g/dL Albumin 3.5 (3.4-5.0) g/dL Globulin 5.2 H (2.3-3.5) g/dL Albumin/Globulin Ratio 0.7 L (1.2-2.2) HCG, Qual Ethyl Alcohol mg/dL Blood Type Gel Antibody Screen Crossmatch 07/27/19 07/27/19 07/27/19 Range/Units 04:30 04:30 04:30 WBC (4.5-11.0) K/uL RBC (3.30-5.50) M/uL Hgb (12.0-15.0) g/dL Hct (36.0-48.0) % MCV (80-98) fL MCH (27-31) pg MCHC (32-36) % Plt Count (150-400) K/uL Neut % (Auto) (36-66) % Lymph % (Auto) (24-44) % Porter % (Auto) (2-6) % Eos % (Auto) (2-4) % Baso % (Auto) (0-1) % PT (9.5-12.0) sec INR (0.80-1.20) APTT (27.0-36.0) sec Sodium (140-148) mmol/L Potassium (3.6-5.2) mmol/L Chloride (100-108) mmol/L Carbon Dioxide (21-32) mmol/L Anion Gap (5.0-14.0) mmol/L BUN (7-18) mg/dL Creatinine (0.6-1.0) mg/dL Est Cr Clr Drug Dosing mL/min Estimated GFR (MDRD) (>60) Glucose (74-106) mg/dL Calcium (8.5-10.1) mg/dL Total Bilirubin (0.2-1.0) mg/dL AST (15-37) U/L ALT (12-78) U/L Alkaline Phosphatase (46-116) U/L Ammonia 24 (11-32) mmol/L Troponin I (0.000-0.056) ng/mL Total Protein (6.4-8.2) g/dL Albumin (3.4-5.0) g/dL Globulin (2.3-3.5) g/dL Albumin/Globulin Ratio (1.2-2.2) HCG, Qual Ethyl Alcohol 403 mg/dL Blood Type A POSITIVE Gel Antibody Screen Negative Crossmatch See Detail 07/27/19 07/27/19 Range/Units 04:30 04:30 WBC (4.5-11.0) K/uL RBC (3.30-5.50) M/uL Hgb (12.0-15.0) g/dL Hct (36.0-48.0) % MCV (80-98) fL MCH (27-31) pg MCHC (32-36) % Plt Count (150-400) K/uL Neut % (Auto) (36-66) % Lymph % (Auto) (24-44) % Porter % (Auto) (2-6) % Eos % (Auto) (2-4) % Baso % (Auto) (0-1) % PT (9.5-12.0) sec INR (0.80-1.20) APTT (27.0-36.0) sec Sodium (140-148) mmol/L Potassium (3.6-5.2) mmol/L Chloride (100-108) mmol/L Carbon Dioxide (21-32) mmol/L Anion Gap (5.0-14.0) mmol/L BUN (7-18) mg/dL Creatinine (0.6-1.0) mg/dL Est Cr Clr Drug Dosing mL/min Estimated GFR (MDRD) (>60) Glucose (74-106) mg/dL Calcium (8.5-10.1) mg/dL Total Bilirubin (0.2-1.0) mg/dL AST (15-37) U/L ALT (12-78) U/L Alkaline Phosphatase (46-116) U/L Ammonia (11-32) mmol/L Troponin I 0.060 H* (0.000-0.056) ng/mL Total Protein (6.4-8.2) g/dL Albumin (3.4-5.0) g/dL Globulin (2.3-3.5) g/dL Albumin/Globulin Ratio (1.2-2.2) HCG, Qual Negative Ethyl Alcohol mg/dL Blood Type Gel Antibody Screen Crossmatch Result Diagrams: 07/27/19 04:30 07/27/19 04:30 Sepsis Event Note - Evaluation Sepsis Screening Result: No Definite Risk - Focused Exam Vital Signs: Vital Signs Temp Pulse Resp BP Pulse Ox 07/27/19 05:02 113 H 16 146/89 H 97 07/27/19 04:56 36.2 C 131 H 13 153/99 H 98 07/27/19 04:33 36.2 C 131 H 13 153/99 H 98 Date Exam was Performed: 07/27/19 Time Exam was Performed: 06:12 - Problem List (1) Upper GI bleeding SNOMED Code(s): 51074956 ICD Code: K92.2 - GASTROINTESTINAL HEMORRHAGE, UNSPECIFIED Status: Acute Current Visit: Yes Problem Details: Suspected esophageal bleeding in a patient with known liver disease and hematemesis. Surgeon on-call refused to accept patient, and patient will be transferred to [facility] for GI. Will continue octreotide and PPI (2) Alcoholic hepatitis SNOMED Code(s): 234927625 ICD Code: K70.10 - ALCOHOLIC HEPATITIS WITHOUT ASCITES Status: Acute Current Visit: No Problem Details: Patient declines ENOC treatment will continue octreotide and spironolactone and PPI Qualifiers: Ascites presence: with ascites Qualified Code(s): K70.11 - Alcoholic hepatitis with ascites (3) Ascites due to alcoholic cirrhosis SNOMED Code(s): 2188184331670440 ICD Code: K70.31 - ALCOHOLIC CIRRHOSIS OF LIVER WITH ASCITES Status: Acute Current Visit: No Problem Details: Patient declines ENOC treatment will continue octreotide and spironolactone and PPI (4) Elevated liver enzymes SNOMED Code(s): 881034069 ICD Code: R74.8 - ABNORMAL LEVELS OF OTHER SERUM ENZYMES Status: Acute Current Visit: No Problem Details: Patient declines ENOC treatment will continue octreotide and spironolactone and PPI Problem List Initiated/Reviewed/Updated: Yes Orders Last 24hrs: Active Orders 24 hr Category Date Time Status Patient Status Manage Transfer [TRANSFER] Routine ADT 07/27/19 05:50 Active Patient Status [ADT] Routine ADT 07/27/19 05:38 Active Head of Bed Elevation [RC] ASDIRECTED Care 07/27/19 04:24 Active Notify Provider Consults [RC] ASDIRECTED Care 07/27/19 06:10 Active Oxygen Therapy [RC] PRN Care 07/27/19 05:38 Active Oxygen Therapy [RC] PRN Care 07/27/19 05:47 Active Peripheral IV Care [RC] . DIRECTED Care 07/27/19 04:25 Active Pulse Oximetry [RC] CONTINUOUS Care 07/27/19 05:48 Active Telemetry Monitoring [Cardiac Monitoring] [RC] .As Care 07/27/19 05:49 Active Directed VTE/DVT Education [RC] Per Unit Routine Care 07/27/19 05:38 Active Vital Signs [RC] Q4H Care 07/27/19 05:38 Active Vital Signs [RC] Q4H Care 07/27/19 05:47 Active Consult to Physician [CONS] Stat Cons 07/27/19 05:58 Ordered Nothing per Oral Now Diet [DIET] Diet 07/27/19 Breakfast Active HGB [HEMOGLOBIN] [HEME] Routine Lab 07/27/19 07:30 Ordered RED BLOOD CELLS LP [BBK] Stat Lab 07/27/19 04:30 Results TYPE AND SCREEN [BBK] Stat Lab 07/27/19 04:30 Results LORazepam [Ativan] Med 07/27/19 05:56 Active 2 mg IVPUSH Q2H PRN Lactated Ringers [Ringers, Lactated] 1,000 ml Med 07/27/19 05:58 Active IV BOLUS MVI, Adult with Vitamin K [Infuvite Adult] 10 ml Med 07/27/19 06:00 Active Thiamine [Vitamin B-1] 100 mg Folic Acid 1 mg Magnesium Sulfate [Magnesium Sulfate 50%] 3 gm Sodium Chloride 0.9% [Normal Saline] 1,000 ml IV ASDIRECTED Octreotide [SandoSTATIN] 500 mcg Med 07/27/19 04:30 Active Sodium Chloride 0.9% [Normal Saline] 497.5 ml IV Q10H Sodium Chloride 0.9% [Saline Flush] Med 07/27/19 04:24 Active 10 ml FLUSH ASDIRECTED PRN Nasogastric Orogastric Tube Insertion [OM.PC] Urgent Oth 07/27/19 04:24 Ordered Peripheral IV Insertion Adult [OM.PC] Urgent Oth 07/27/19 04:24 Ordered Resuscitation Status Routine Resus Stat 07/27/19 05:38 Ordered Medication Orders Octreotide Acetate 500 mcg/ (Sodium Chloride) 500 mls @ 50 mls/hr IV Q10H KAREN Last Admin: 07/27/19 05:01 Dose: 50 mcg/hr, 50 mls/hr Multivitamins/Minerals 10 ml/Thiamine HCl 100 mg/ Folic Acid 1 mg/ Magnesium Sulfate 3 gm/ Sodium Chloride 1,017.2 mls @ 125 mls/hr IV ASDIRECTED KAREN Lactated Ringer's (Ringers, Lactated) 1,000 mls @ 999 mls/hr IV BOLUS ONE Stop: 07/27/19 06:58 Lorazepam (Ativan) 2 mg IVPUSH Q2H PRN PRN Reason: alcohol withdrawal Sodium Chloride (Saline Flush) 10 ml FLUSH ASDIRECTED PRN PRN Reason: Keep Vein Open Last Admin: 07/27/19 04:40 Dose: 10 ml - Mortality Measure Prognosis:: Good
== END 2019-07-27 07:35 | disposition critical access hospital (66) ==
LOC: JP.ED 03:58
DX: K92.2 Gastrointestinal hemorrhage, unspecified (principal); I10 Essential (primary) hypertension; K21.9 Gastro-esophageal reflux disease without esophagitis; F17.200 Nicotine dependence, unspecified, uncomplicated; Z88.2 Allergy status to sulfonamides
CPT/HCPCS: 36415; 80053; 80307; 82140; 84484; 84703; 85025; 85610; 85730; 86850; 86900; 86901; 86920; 86922; 96365; 96375; 99285; C9113; J2060; J2354; J2405; J7040; J7120

== ENCOUNTER 2020-12-25 00:18 | Emergency (ER) | payer MEDICAID ==
--- NOTE | 2020-12-25 00:26 | EDM.PDOCBH ---
<Slime Rascon - Last Filed: 12/25/20 12:17> ED HPI GENERAL MEDICAL PROBLEM - General Chief Complaint: Drug or Alcohol Abuse Stated Complaint: MEDICAL VIA TRI Time Seen by Provider: 12/25/20 00:19 - Related Data Allergies Allergy/AdvReac Type Severity Reaction Status Date / Time sulfamethoxazole Allergy Itching Verified 12/25/20 00:25 [From Bactrim] trimethoprim [From Bactrim] Allergy Itching Verified 12/25/20 00:25 Home Meds: Home Meds Magnesium Oxide [Magnesium] 400 mg PO BID 01/01/19 [History] Multivitamin [Multi-Vitamin Daily] 1 each PO DAILY 01/01/19 [History] Ferrous Sulfate 325 mg PO BIDMEALS #60 tablet 05/08/19 [Rx] Calcium Citrate/Vitamin D3 [[place] Calcium-Vit D 200-250] 2 tab PO BID 12/25/20 [History] Pantoprazole [ProTONIX] 40 mg PO DAILY 12/25/20 [History] Potassium Chloride 2 tab PO TID 12/25/20 [History] Spironolactone [Aldactone] 1 tab PO BID 12/25/20 [History] COURSE, BEHAVIORAL HEALTH COMP - Course Medical Clearance: 12/25/20 12:18 pt is more alert at this point. She is willing to get some help. The only beds avaialable are at the [facility] unit in [place]. She statesshe would be voluntary there. She is nauseated and is vomiting after eating lunch. She was given zoforan and her protoniox. Departure - Departure Disposition: DC/Tfer to Psych Hosp/Unit 65 Clinical Impression: Suicide attempt, Noncompliance with medication regimen, History of ETOH abuse Narcotic overdose Qualifiers: Encounter type: initial encounter Injury intent: intentional self-harm Pierre lified Code(s): T40.602A - Poisoning by unspecified narcotics, intentional self- harm, initial encounter Bipolar disorder Qualifiers: Active/Remission status: currently active Current bipolar episode type: depressed Current episode severity: severe Psychotic features: without psychotic features Qualified Code(s): F31.4 - Bipolar disorder, current episode depressed, severe, without psychotic features Cirrhosis of liver Qualifiers: Hepatic cirrhosis type: alcoholic cirrhosis Ascites presence: unspecified Qualified Code(s): K70.30 - Alcoholic cirrhosis of liver without ascites Alcohol intoxication Qualifiers: Complication of substance-induced condition: uncomplicated Qualified Code(s): F10.920 - Alcohol use, unspecified with intoxication, uncomplicated - Discharge Information Referrals: Hipolito Dawkins MD [Primary Care Provider] - Forms: ED Department Discharge <Kam Villarreal - Last Filed: 12/26/20 06:32> ED HPI GENERAL MEDICAL PROBLEM - General Source of Information: Reports: Patient, EMS History Limitations: Reports: Intoxication - History of Present Illness INITIAL COMMENTS - FREE TEXT/NARRATIVE: Kassie who goes by the name Machelle is a 45-year-old female brought in by [facility] for evaluation after an attempted overdose. Patient openly admits to being suicidal and attempted suicide tonight by taking alcohol and 10-12 oxycodone 5 mg tablets. It was witnessed that she became unresponsive and first responders arrived trying to do a sternal rub to wake her. EMS arrived, put an oral airway in and started to [id number] ventilate her and got her in the back of the rig at which time she received Narcan 0.4 mg IV with immediate results of her awakening. Patient admits to being alcoholic and drinking to the point now where she has cirrhosis. Her suicide attempt was triggered by her sorrow over her son committing suicide in July of this year. She does not want to talk about any previous attempts. She denies taking any other illicit drugs or medications. She is normally seen by Favio Boateng on the [facility]. Past Medical History HEENT History: Reports: Impaired Vision Cardiovascular History: Reports: Hypertension Gastrointestinal History: Reports: Cirrhosis, GERD, GI Bleed 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, Recurrent [employer] History: Reports: Musculoskeletal History: Reports: Fracture Psychiatric History: Reports: Addiction, Bipolar, Other (See Below) Other Psychiatric History: abuse Hematologic History: Reports: Blood Transfusion(s) Dermatologic History: Reports: Other (See Below) Other Dermatologic History: tattoos - Infectious Disease History Infectious Disease History: Reports: None - Past Surgical History Female Surgical History: Reports: Tubal Ligation Social & Family History - Family History Cardiac: Reports: Bypass, Hypertension, SC, Pacemaker Psychiatric: Reports: Bipolar, Schizophrenia Endocrine/Metabolic: Reports: Diabetes, type II Oncologic: Reports: Colon - Caffeine Use Caffeine Use: Reports: None ED ROS GENERAL - Review of Systems Review Of Systems: Unable To Obtain Reason Not Obtained: Alcohol intoxication and only answers some of the questions Constitutional: Reports: No Symptoms HEENT: Reports: No Symptoms Respiratory: Reports: No Symptoms Cardiovascular: Reports: No Symptoms Endocrine: Reports: No Symptoms GI/Abdominal: Reports: No Symptoms Musculoskeletal: Reports: No Symptoms Skin: Reports: Wound (A burn over the sternum possibly from heavy sternal rub) Neurological: Reports: Other (Intoxicated) Psychiatric: Reports: Anxiety, Depression, Suicidal Ideation (Suicide attempt by overdosing on narcotics taking oxycodone 5 mg tablets 10-12 and alcohol. Patient reports that she intentionally took this to end her life.) Hematologic/Lymphatic: Reports: No Symptoms Immunologic: Reports: No Symptoms ED EXAM, BEHAVIORAL HEALTH - Physical Exam Exam: See Below Exam Limited By: Intoxication General Appearance: Alert, Anxious, Mild Distress Eye Exam: Bilateral Eye: Conjunctival Injection, EOMI, PERRL (EMS reports that her pupils were fixed and pinpoint on their arrival before the Narcan.) Throat/Mouth: Normal Inspection, Normal Lips, Normal Oropharynx, Normal Voice, No Airway Compromise Head: Atraumatic, Normocephalic Neck: Normal Inspection, Supple Respiratory/Chest: No Respiratory Distress, Lungs Clear, Normal Breath Sounds, Other (A 7 cm x 3 cm deep abrasion or burn over the sternum possibly secondary to a sternal rub) Cardiovascular: Normal Peripheral Pulses, Regular Rate, Rhythm, No Murmur GI/Abdominal: Normal Bowel Sounds, Soft, Non-Tender Extremities: Normal Inspection, Normal Range of Motion, Non-Tender, Normal Capillary Refill Neurological: No Motor/Sensory Deficits, Oriented x 3, Other ([place] Coma Scale of 15. Slow to answer questions.) Psychiatric: Depressed Mood, Tearful, Poor Eye Contact, Suicidal Plan, Suicidal Thoughts Skin Exam: Other (There appears to be a burn over the sternum possibly secondary to repeated rubbing for sternal rub. It appears that there is some sloughing of tissue.) #1 Interpretation EKG Date: 12/25/20 Time: 00:17 Rhythm: NSR Rate (Beats/Min): 108 QRS: RBBB (In addition, there is a left anterior fascicular block) QT: Prolonged Comparison: Change From Previous EKG (Right bundle branch block and left anterior fascicular block are new since her previous EKG dated 03/21/2018) COURSE, BEHAVIORAL HEALTH COMP - Course Re-Assessment/Re-Exam: Discussed the case with poison control who recommended observing her for least 4 hours after the last dose of Narcan. She also recommended rechecking acetaminophen 4 hours after ingestion. The patient will likely took oxycodone 5 mg immediate release which should peak at 4 hours and then start to dissipate. I reviewed the patient's labs showing a leukocyte count of 12 with a normal differential. Her hemoglobin is 14.5 with hematocrit of 43.8 and a platelet count of 223,000. Her comprehensive metabolic panel is unremarkable with a normal AST and ALT. Her acetaminophen is 0.0. Her ethanol is 349. Salicylate, urinalysis, and urine drug screen are still pending. As this was an intentional overdose, the patient will require inpatient psychiatric hospitalization for stabilization. She is not currently on a hold and is here voluntarily, however, should she decide to leave I would certainly place her on a 72-hour hold. Repeat acetaminophen level 4 hours after ingestion is still 0.0. 07:00 Care of the patient will be transferred from Dr. Villarreal to Dr. Rascon. Discharge vs Psych Eval/Treatment:: 12/25/20 18:00 Care of the patient was transferred from Dr. Rascon to Dr. Villarreal at 1800 hrs. Patient was seen by Ritu from [facility] Crisis team who evaluated the patient and concurs that the patient is at high risk and recommends admission to inpatient psychiatry for stabilization. We will pursue placement of the patient further. She remains on a 72-hour hold. 12/26/20 05:09 patient had an uneventful night. We are still working on trying to find placement for the patient. If she is willing to go to one of the facilities to take voluntary patients I will resend the hold. 12/26/20 07:00 Care of the patient transferred from Dr. Villarreal to Dr. Pruitt. At this time we are still trying to arrange inpatient psychiatric admission of the patient. <Jacinto Pruitt - Last Filed: 12/26/20 17:35> COURSE, BEHAVIORAL HEALTH COMP - Course Vital Signs: Last Vital Signs Temp 36.1 C 12/25/20 00:20 Pulse 100 12/25/20 07:06 Resp 13 12/25/20 07:06 BP 121/90 12/25/20 07:06 Pulse Ox 97 12/25/20 07:06 Orders, Labs, Meds: Active Orders 24 hr Category Date Time Status EKG Documentation Completion [RC] ASDIRECTED Care 12/26/20 15:42 Active EKG 12 Lead [EK] Routine Ther 12/26/20 15:42 Ordered Laboratory Tests 12/25/20 12/25/20 12/25/20 Range/Units 00:21 00:25 00:25 WBC 12.0 H (4.5-11.0) K/uL RBC 4.58 (3.30-5.50) M/uL Hgb 14.5 (12.0-15.0) g/dL Hct 43.8 (36.0-48.0) % MCV 96 (80-98) fL MCH 32 H (27-31) pg MCHC 33 (32-36) % Plt Count 225 (150-400) K/uL Neut % (Auto) 54.0 (36-66) % Lymph % (Auto) 36.0 (24-44) % Newton % (Auto) 6.7 H (2-6) % Eos % (Auto) 2.7 (2-4) % Baso % (Auto) 0.6 (0-1) % Sodium 144 (140-148) mmol/L Potassium 3.6 (3.6-5.2) mmol/L Chloride 104 (100-108) mmol/L Carbon Dioxide 26 (21-32) mmol/L Anion Gap 13.8 (5.0-14.0) mmol/L BUN 11 (7-18) mg/dL Creatinine 0.9 (0.6-1.0) mg/dL Est Cr Clr Drug Dosing 72.53 mL/min Estimated GFR (MDRD) > 60 (>60) Glucose 130 H (74-106) mg/dL Calcium 8.1 L (8.5-10.1) mg/dL Total Bilirubin 0.1 L D (0.2-1.0) mg/dL AST 32 (15-37) U/L ALT 35 (12-78) U/L Alkaline Phosphatase 121 H (46-116) U/L Total Protein 7.8 (6.4-8.2) g/dL Albumin 3.4 (3.4-5.0) g/dL Globulin 4.4 H (2.3-3.5) g/dL Albumin/Globulin Ratio 0.8 L (1.2-2.2) Urine Color (YELLOW) Urine Appearance (CLEAR) Urine pH (5.0-8.0) Ur Specific [place] (1.008-1.030) Urine Protein (NEGATIVE) mg/dL Urine Glucose (UA) (NEGATIVE) mg/dL Urine Ketones (NEGATIVE) mg/dL Urine Occult Blood (NEGATIVE) Urine Nitrite (NEGATIVE) Urine Bilirubin (NEGATIVE) Urine Urobilinogen (0.2-1.0) EU/dL Ur Leukocyte Esterase (NEGATIVE) Urine RBC (0-5) Urine WBC (0-5) Ur Epithelial Cells Amorphous Sediment Urine Bacteria Urine Mucus Salicylates (2.0-20.0) mg/dL Urine Opiates Screen (NEGATIVE) Ur Oxycodone Screen (NEGATIVE) Urine Methadone Screen (NEGATIVE) Ur Propoxyphene Screen (NEGATIVE) Acetaminophen 0.0 L (10.0-30.0) ug/mL Ur Barbiturates Screen (NEGATIVE) Ur Tricyclics Screen (NEGATIVE) Ur Phencyclidine Scrn (NEGATIVE) Ur Amphetamine Screen (NEGATIVE) U Methamphetamines Scrn (NEGATIVE) Urine MDMA Screen (NEGATIVE) U Benzodiazepines Scrn (NEGATIVE) U Cocaine Metab Screen (NEGATIVE) U Marijuana (THC) Screen (NEGATIVE) Ethyl Alcohol mg/dL Influenza Type A RNA Negative (NEGATIVE) RSV RNA (INAAT) Negative (NEGATIVE) Influenza Type B RNA Negative (NEGATIVE) SARS-CoV-2 RNA (FLOR) Negative (NEGATIVE) 12/25/20 12/25/20 12/25/20 Range/Units 00:25 00:25 04:15 WBC (4.5-11.0) K/uL RBC (3.30-5.50) M/uL Hgb (12.0-15.0) g/dL Hct (36.0-48.0) % MCV (80-98) fL MCH (27-31) pg MCHC (32-36) % Plt Count (150-400) K/uL Neut % (Auto) (36-66) % Lymph % (Auto) (24-44) % Newton % (Auto) (2-6) % Eos % (Auto) (2-4) % Baso % (Auto) (0-1) % Sodium (140-148) mmol/L Potassium (3.6-5.2) mmol/L Chloride (100-108) mmol/L Carbon Dioxide (21-32) mmol/L Anion Gap (5.0-14.0) mmol/L BUN (7-18) mg/dL Creatinine (0.6-1.0) mg/dL Est Cr Clr Drug Dosing mL/min Estimated GFR (MDRD) (>60) Glucose (74-106) mg/dL Calcium (8.5-10.1) mg/dL Total Bilirubin (0.2-1.0) mg/dL AST (15-37) U/L ALT (12-78) U/L Alkaline Phosphatase (46-116) U/L Total Protein (6.4-8.2) g/dL Albumin (3.4-5.0) g/dL Globulin (2.3-3.5) g/dL Albumin/Globulin Ratio (1.2-2.2) Urine Color (YELLOW) Urine Appearance (CLEAR) Urine pH (5.0-8.0) Ur Specific [place] (1.008-1.030) Urine Protein (NEGATIVE) mg/dL Urine Glucose (UA) (NEGATIVE) mg/dL Urine Ketones (NEGATIVE) mg/dL Urine Occult Blood (NEGATIVE) Urine Nitrite (NEGATIVE) Urine Bilirubin (NEGATIVE) Urine Urobilinogen (0.2-1.0) EU/dL Ur Leukocyte Esterase (NEGATIVE) Urine RBC (0-5) Urine WBC (0-5) Ur Epithelial Cells Amorphous Sediment Urine Bacteria Urine Mucus Salicylates 4.3 (2.0-20.0) mg/dL Urine Opiates Screen (NEGATIVE) Ur Oxycodone Screen (NEGATIVE) Urine Methadone Screen (NEGATIVE) Ur Propoxyphene Screen (NEGATIVE) Acetaminophen 0.0 L (10.0-30.0) ug/mL Ur Barbiturates Screen (NEGATIVE) Ur Tricyclics Screen (NEGATIVE) Ur Phencyclidine Scrn (NEGATIVE) Ur Amphetamine Screen (NEGATIVE) U Methamphetamines Scrn (NEGATIVE) Urine MDMA Screen (NEGATIVE) U Benzodiazepines Scrn (NEGATIVE) U Cocaine Metab Screen (NEGATIVE) U Marijuana (THC) Screen (NEGATIVE) Ethyl Alcohol 349 mg/dL Influenza Type A RNA (NEGATIVE) RSV RNA (INAAT) (NEGATIVE) Influenza Type B RNA (NEGATIVE) SARS-CoV-2 RNA (FLOR) (NEGATIVE) 12/25/20 12/25/20 12/25/20 Range/Units 06:30 07:30 07:48 WBC (4.5-11.0) K/uL RBC (3.30-5.50) M/uL Hgb (12.0-15.0) g/dL Hct (36.0-48.0) % MCV (80-98) fL MCH (27-31) pg MCHC (32-36) % Plt Count (150-400) K/uL Neut % (Auto) (36-66) % Lymph % (Auto) (24-44) % Newton % (Auto) (2-6) % Eos % (Auto) (2-4) % Baso % (Auto) (0-1) % Sodium (140-148) mmol/L Potassium (3.6-5.2) mmol/L Chloride (100-108) mmol/L Carbon Dioxide (21-32) mmol/L Anion Gap (5.0-14.0) mmol/L BUN (7-18) mg/dL Creatinine (0.6-1.0) mg/dL Est Cr Clr Drug Dosing mL/min Estimated GFR (MDRD) (>60) Glucose (74-106) mg/dL Calcium (8.5-10.1) mg/dL Total Bilirubin (0.2-1.0) mg/dL AST (15-37) U/L ALT (12-78) U/L Alkaline Phosphatase (46-116) U/L Total Protein (6.4-8.2) g/dL Albumin (3.4-5.0) g/dL Globulin (2.3-3.5) g/dL Albumin/Globulin Ratio (1.2-2.2) Urine Color Yellow Yellow (YELLOW) Urine Appearance Slightly cloudy A Turbid A (CLEAR) Urine pH 5.5 6.0 (5.0-8.0) Ur Specific [place] >= 1.030 >= 1.030 (1.008-1.030) Urine Protein 30 H 30 H (NEGATIVE) mg/dL Urine Glucose (UA) Negative Negative (NEGATIVE) mg/dL Urine Ketones Negative Negative (NEGATIVE) mg/dL Urine Occult Blood Large H Large H (NEGATIVE) Urine Nitrite Negative Negative (NEGATIVE) Urine Bilirubin Negative Negative (NEGATIVE) Urine Urobilinogen 0.2 0.2 (0.2-1.0) EU/dL Ur Leukocyte Esterase Negative Negative (NEGATIVE) Urine RBC 5-10 H (0-5) Urine WBC Not seen (0-5) Ur Epithelial Cells Occasional Amorphous Sediment Many Urine Bacteria Many Urine Mucus Not seen Salicylates (2.0-20.0) mg/dL Urine Opiates Screen (NEGATIVE) Ur Oxycodone Screen (NEGATIVE) Urine Methadone Screen (NEGATIVE) Ur Propoxyphene Screen (NEGATIVE) Acetaminophen (10.0-30.0) ug/mL Ur Barbiturates Screen (NEGATIVE) Ur Tricyclics Screen (NEGATIVE) Ur Phencyclidine Scrn (NEGATIVE) Ur Amphetamine Screen (NEGATIVE) U Methamphetamines Scrn (NEGATIVE) Urine MDMA Screen (NEGATIVE) U Benzodiazepines Scrn (NEGATIVE) U Cocaine Metab Screen (NEGATIVE) U Marijuana (THC) Screen (NEGATIVE) Ethyl Alcohol 164 mg/dL Influenza Type A RNA (NEGATIVE) RSV RNA (INAAT) (NEGATIVE) Influenza Type B RNA (NEGATIVE) SARS-CoV-2 RNA (FLOR) (NEGATIVE) 12/25/20 Range/Units 07:51 WBC (4.5-11.0) K/uL RBC (3.30-5.50) M/uL Hgb (12.0-15.0) g/dL Hct (36.0-48.0) % MCV (80-98) fL MCH (27-31) pg MCHC (32-36) % Plt Count (150-400) K/uL Neut % (Auto) (36-66) % Lymph % (Auto) (24-44) % Newton % (Auto) (2-6) % Eos % (Auto) (2-4) % Baso % (Auto) (0-1) % Sodium (140-148) mmol/L Potassium (3.6-5.2) mmol/L Chloride (100-108) mmol/L Carbon Dioxide (21-32) mmol/L Anion Gap (5.0-14.0) mmol/L BUN (7-18) mg/dL Creatinine (0.6-1.0) mg/dL Est Cr Clr Drug Dosing mL/min Estimated GFR (MDRD) (>60) Glucose (74-106) mg/dL Calcium (8.5-10.1) mg/dL Total Bilirubin (0.2-1.0) mg/dL AST (15-37) U/L ALT (12-78) U/L Alkaline Phosphatase (46-116) U/L Total Protein (6.4-8.2) g/dL Albumin (3.4-5.0) g/dL Globulin (2.3-3.5) g/dL Albumin/Globulin Ratio (1.2-2.2) Urine Color (YELLOW) Urine Appearance (CLEAR) Urine pH (5.0-8.0) Ur Specific [place] (1.008-1.030) Urine Protein (NEGATIVE) mg/dL Urine Glucose (UA) (NEGATIVE) mg/dL Urine Ketones (NEGATIVE) mg/dL Urine Occult Blood (NEGATIVE) Urine Nitrite (NEGATIVE) Urine Bilirubin (NEGATIVE) Urine Urobilinogen (0.2-1.0) EU/dL Ur Leukocyte Esterase (NEGATIVE) Urine RBC (0-5) Urine WBC (0-5) Ur Epithelial Cells Amorphous Sediment Urine Bacteria Urine Mucus Salicylates (2.0-20.0) mg/dL Urine Opiates Screen Negative (NEGATIVE) Ur Oxycodone Screen Presumptive positive H (NEGATIVE) Urine Methadone Screen Negative (NEGATIVE) Ur Propoxyphene Screen Negative (NEGATIVE) Acetaminophen (10.0-30.0) ug/mL Ur Barbiturates Screen Negative (NEGATIVE) Ur Tricyclics Screen Negative (NEGATIVE) Ur Phencyclidine Scrn Negative (NEGATIVE) Ur Amphetamine Screen Negative (NEGATIVE) U Methamphetamines Scrn Negative (NEGATIVE) Urine MDMA Screen Negative (NEGATIVE) U Benzodiazepines Scrn Negative (NEGATIVE) U Cocaine Metab Screen Negative (NEGATIVE) U Marijuana (THC) Screen Negative (NEGATIVE) Ethyl Alcohol mg/dL Influenza Type A RNA (NEGATIVE) RSV RNA (INAAT) (NEGATIVE) Influenza Type B RNA (NEGATIVE) SARS-CoV-2 RNA (FLOR) (NEGATIVE) Medications Discontinued Medications Generic Name Dose Route Start Last Admin Trade Name Freq PRN Reason Stop Dose Admin Ondansetron HCl 4 mg 12/25/20 00:37 12/25/20 00:56 Ondansetron 4 Mg/2 Ml Sdv IVPUSH 12/25/20 00:38 4 mg ONETIME ONE Administration Ondansetron HCl 4 mg 08/01/21 12:13 12/25/20 12:19 Ondansetron 4 Mg Tab.Dis PO 12/25/20 12:14 4 mg ONETIME ONE Administration Pantoprazole Sodium 40 mg 12/25/20 12:14 12/25/20 12:19 Pantoprazole 40 Mg Tab.Cr PO 12/25/20 12:15 40 mg DAILY ONE Administration Spironolactone 25 mg 12/25/20 12:20 12/25/20 12:32 Spironolactone 25 Mg Tab PO 12/25/20 12:21 25 mg ONETIME ONE Administration Re-Assessment/Re-Exam Time: 17:34 (accepted at [facility] at 1800h, has been cooperative and stable the entire shift. ) Departure - Departure Time of Disposition: 18:00 - My Orders Last 24 Hours: My Active Orders 12/26/20 15:42 EKG Documentation Completion [RC] ASDIRECTED EKG 12 Lead [EK] Routine - Assessment/Plan Last 24 Hours: My Active Orders 12/26/20 15:42 EKG Documentation Completion [RC] ASDIRECTED EKG 12 Lead [EK] Routine
[2020-12-25] MEDS ORDERED: Ondansetron 4 MG/2 ML SDV IVPUSH ONE (00:37)
[2020-12-25 01:37] LABS: CORONAVIRUS COVID-19 NAA NEGATIVE (NEGATIVE)
[2020-12-25] MEDS ORDERED: Ondansetron 4 MG Tab.DIS PO ONE (12:13)
[2020-12-25] MEDS ORDERED: Pantoprazole 40 MG Tab.CR PO ONE (12:14)
[2020-12-25] MEDS ORDERED: Spironolactone 25 MG Tab PO ONE (12:20)
== END 2020-12-26 18:39 ==
LOC: JP.ED 00:18
DX: T40.602A Poisoning by unspecified narcotics, intentional self-harm, initial encounter (principal); F31.4 Bipolar disorder, current episode depressed, severe, without psychotic features; K70.30 Alcoholic cirrhosis of liver without ascites; F10.129 Alcohol abuse with intoxication, unspecified; Z91.19 Patient's noncompliance with other medical treatment and regimen; Z88.1 Allergy status to other antibiotic agents; Z20.822 Contact with and (suspected) exposure to COVID-19; Y90.8 Blood alcohol level of 240 mg/100 ml or more
CPT/HCPCS: 0241U; 36415; 80053; 80143; 80179; 80305; 80307; 81001; 81003; 85025; 93005; 96374; 99285; A9270; J2405